=== PATIENT | male | born 1945 | race Caucasian/White ===

== ENCOUNTER → 2016-10-23 08:14 | Outpatient (CLI) | payer MEDICARE, BC ==
[2016-07-10 07:11] VITALS: BMI 30.1
[~2016-10-23 08:14] MED LIST: ANDROGEL; ASPIRIN325 MG PO; BABY ASPIRIN81 MG PO; BAYER CHEWABLE81 MG PO; CELEXA40 MG PO; FOLIC ACID1 MG PO; ISOSORBIDE MONO60 M1 PO; LISINOPRIL-HCTZ1 T13 PO; PLAVIX75 MG PO; PRILOSEC20 MG PO; PROTONIX40 MG PO; ZOCOR20 MG PO
== END | disposition home or self-care (01) ==
LOC: D.RAD 08:14
DX: K21.0 Gastro-esophageal reflux disease with esophagitis (principal)

== ENCOUNTER 2016-12-10 10:36 | Emergency (ER) | payer MEDICARE, BC ==
[2016-07-10 07:11] VITALS: BMI 30.1
[~2016-12-10 10:36] MED LIST changes: -BAYER CHEWABLE81 MG PO
[2016-12-10 11:18] LABS: BASOPHILS 0.3 % (0.0-2.0); EOSINOPHILS 4.3 % (0-7); HEMATOCRIT 46.3 % (42.0-54.0); HEMOGLOBIN 16.1 g/dL (13.5-17.5); IMMATURE GRANULOCYTES 0.3 % (0-5); LYMPHOCYTES 29.9 % (15-50); MCH 31.2 pg (26.0-34.0); MCHC 34.8 g/dL (31.0-37.0); MCV 89.7 fL (80.0-100.0); MEAN PLATELET VOLUME 9.1 fL (7.4-10.4); MONOCYTES 6.8 % (2-11); NEUTROPHILS 58.4 % (40-80); RBC 5.16 10x6/uL (4.20-6.10); RDW 12.9 % (11.5-14.5); WBC 6.7 10x3/uL (4.8-10.8)
[2016-12-10 11:22] LABS: PLATELET COUNT 319 10x3/uL (130-400)
[2016-12-10 11:47] LABS: ALBUMIN 4.1 g/dL (3.4-5.0); ALKALINE PHOSPHATASE 92 U/L (46-116); ALT (SGPT) 33 U/L (10-68); BILIRUBIN - TOTAL 0.75 mg/dL (0.2-1.3); CALC OSMOLALITY 275 mosm/kg (275-300); CALCIUM 9.1 mg/dL (8.5-10.1); CARBON DIOXIDE 27.7 mmol/L (21.0-32.0); CHLORIDE - SERUM 102 mmol/L (98-107); CREATININE - SERUM 1.4 mg/dL (0.6-1.3); GLUCOSE 99 mg/dL (74-106); PROTEIN - SERUM 7.6 g/dL (6.4-8.2); SODIUM 138 mmol/L (136-145); UREA NITROGEN 13 mg/dL (7-18); eGFR NON AFRICAN AMERICAN 53 mL/min (90-120)
[2016-12-10 11:54] LABS: CHOL - HDL RATIO 2.9 ratio (2.3-4.9); CHOLESTEROL, TOTAL 204 mg/dL (0-200); CKMB 0.6 U/L (0.0-3.6); CREATINE KINASE 34 UL (21-232); HDL CHOLESTEROL 71 mg/dL (32-96); LDL CHOLESTEROL 99 mg/dL (0-100); LDL-HDL RATIO 1.4 ratio (1.5-3.5); TRIGLYCERIDE 172 mg/dL (30-200)
[2016-12-10 12:01] LABS: TROPONIN-I < 0.017 ng/mL (0.000-0.060)
== END 2016-12-10 12:36 | disposition home or self-care (01) ==
LOC: D.ER 10:36
PROVIDERS: Emergency Medicine
DX: R07.89 Other chest pain (principal); K21.9 Gastro-esophageal reflux disease without esophagitis

== ENCOUNTER 2016-12-24 09:12 | Day surgery (SDC) | payer MEDICARE, BC ==
[~2016-12-24] VITALS: Ht 180.3 cm; Wt 93.2 kg
[2016-12-24] MEDS ORDERED: BAYER CHEWABLE81 MG PO (09:42)
[2016-12-24 09:49] VITALS: BP 147/71; Ht 180.3 cm; Wt 93.2 kg
[2016-12-24 10:16] LABS: BASOPHILS 0.2 % (0.0-2.0); EOSINOPHILS 6.6 % (0-7); HEMATOCRIT 43.5 % (42.0-54.0); HEMOGLOBIN 14.9 g/dL (13.5-17.5); IMMATURE GRANULOCYTES 0.2 % (0-5); MCH 31.1 pg (26.0-34.0); MCHC 34.3 g/dL (31.0-37.0); MCV 90.8 fL (80.0-100.0); MEAN PLATELET VOLUME 9.2 fL (7.4-10.4); MONOCYTES 9.1 % (2-11); NEUTROPHILS 55.9 % (40-80); RBC 4.79 10x6/uL (4.20-6.10); RDW 13.1 % (11.5-14.5); WBC 6.2 10x3/uL (4.8-10.8)
[2016-12-24 10:17] LABS: PLATELET COUNT 230 10x3/uL (130-400)
[2016-12-24 10:35] LABS: ANION GAP 18.1 mmol/L (8-16); CALCIUM 8.8 mg/dL (8.5-10.1); CARBON DIOXIDE 23.6 mmol/L (21.0-32.0); CREATININE - SERUM 1.1 mg/dL (0.6-1.3); POTASSIUM - SERUM 4.7 mmol/L (3.5-5.1)
--- NOTE | 2016-12-24 12:35 | NUR ---
CLIP FOR EGD USED SAME COLON CHARGE
--- NOTE | 2016-12-24 14:28 | NUR ---
1325 IV DC WITH CATHER TIP INTACT=
--- NOTE | 2016-12-28 13:02 | OP ---
PATIENT NAME: IGOR HERNANDEZ MEDICAL RECORD: [id number] :43 LOCATION:[facility] ADMISSION DATE: SURGEON: TISHA KUMAR DO DATE OF OPERATION: 12/24/2016 PROCEDURES: EGD with hot snare polypectomy and biopsies. SCOPE: Olympus video gastroscope. MEDICATIONS: Propofol 270 mg IV per anesthesia. INDICATION: Epigastric abdominal pain. FINDINGS: Informed consent was given. The patient was made comfortable with the above medication. After reaching an adequate level of sedation by slow IV push, the patient was placed on his left side. The endoscope was then advanced under direct visualization through the mouth down to the second portion of the duodenum. The upper, middle, and distal thirds of the esophagus appeared normal. At the GE junction, there was some mild LA class A reflux-induced esophagitis. Biopsies were taken of the site with cold forceps. The scope was advanced into the stomach and retroflexed to view the cardia where a small sliding hiatal hernia was present. There were some benign-appearing PPI-induced fundic gland polyps in the fundus and body of the stomach. A biopsy was taken of a single polyp and submitted for histology. There was some patchy granularity and erythema of the body and antrum of the stomach consistent with possible gastritis. Biopsies were taken to confirm this and to rule out H. pylori. The endoscope was advanced through the pylorus into the duodenum. The bulb appeared normal. In the second portion of the duodenum, there was a polypoid site, which had some adenomatous features. For a diagnosis, 2 biopsies were taken prior to a snare polypectomy. There was some bleeding from the biopsies and polypectomy. To stop the bleeding, a single endoclip was placed successfully. The endoscope was then withdrawn from the patient. The patient tolerated the procedure well and there were no complications. IMPRESSION: 1. Grade A reflux-induced esophagitis. 2. Small sliding hiatal hernia. 3. Erythema and granularity consistent with gastritis, biopsies taken. 4. Benign fundic gland PPI polyps. Biopsies taken. 5. Duodenal polyp, hot snare polypectomy performed and hemostasis with endoclipping. PLAN AND RECOMMENDATIONS: 1. Discharge home when recovery parameters are met. 2. Continue current medications. 3. Add Carafate tabs 1 g q.a.c. and h.s., dilute in water to coat the esophagus. 4. Gastroesophageal reflux diet and reflux precautions. 5. Follow up in the GI clinic as needed. TRANSINT:[id number] Voice Confirmation ID: [id number] DOCUMENT ID: [id number] OPERATIVE REPORT [id number] IGOR HERNANDEZ NATHAN A DO at 1302 CC: [id number] DICTATION DATE: 12/24/16 1245 [facility] NURSE: 12/24/16 1332 [facility] 12/24/[address] [address]
== END 2016-12-24 13:30 | disposition home or self-care (01) ==
LOC: D.OPS 09:12
PROVIDERS: Anesthesiology
DX: K21.0 Gastro-esophageal reflux disease with esophagitis (principal); K44.9 Diaphragmatic hernia without obstruction or gangrene; K31.7 Polyp of stomach and duodenum; D13.30 Benign neoplasm of unspecified part of small intestine; K22.70 Barrett's esophagus without dysplasia

== ENCOUNTER → 2017-02-16 06:59 | Outpatient (CLI) | payer MEDICARE, BC ==
[~2017-02-16] VITALS: Ht 180.3 cm; Wt 92.3 kg
--- NOTE | ~2017-02-16 | HEMODYNAMI ---
PATIENT:IGOR HERNANDEZ MEDICAL RECORD: [id number] : 43 LOCATION:[facility] ADMISSION DATE: 02/16/17 Generatedon:02/16/20179:44 Patient name: IGOR HERNANDEZ Patient #: [id number] : 1945 Date of study: 02/16/2017 Page: Of Hemodynamic Procedure Report Patient Data Patient Demographics Procedure consent was obtained First Name: IGOR Gender: Male Last Name: DAVID : 1945 [facility] Initial: OTILIA Age: 71 year(s) Patient #: [id number] Race: SSN: [id number] Additional ID: [id number] Contact details Address: [address] [facility] State: [place] City: [place] Zip code: [address] Past Medical History Allergies Allergen Reaction Date Comments Reported Other allergy 07/10/2016 Tetanus Admission Admission Data Admission Date: 02/16/2017 Admission Time: 6:59 Arrival Date: 02/16/2017 Arrival Time: 6:59 Admit Source: Other Insurance Payor: Medicare Height (in.): 71 BSA: 2.14 (m2) Height (cm.): 180.34 BMI: 28.87 (kg/m2) Weight (lbs.): 207 Weight (kg.): 93.89 Lab Results Lab Result Date: 02/16/2017 Lab Result Time: 0:00 Biochemistry Name Units Result Min Max BUN mg/dl 15 --(--*-)-- 7 18 Creatinine mg/dl 1.5 --(----)-* 0.6 1.3 CBC Name Units Result Min Max Hemoglobin g/dl 13.9 --(*---)-- 13.5 17.5 Procedure Procedure Types Cath Procedure Diagnostic Procedure LHC LHC w/Coronaries Miscellaneous Procedures Moderate Sedation up to 15 minutes Procedure Description Procedure Date Procedure Date: 02/16/2017 Procedure Start Time: 9:33 Procedure End Time: 9:40 Procedure Staff Name Function Regan Santos MD Performing Physician Brigette Acevedo RT Scrub Kristy Pena RN Nurse Keke Polk RT Monitor Indication Angina Procedure Data Cath Procedure Fluoroscopy Diagnostic fluoroscopy Total fluoroscopy Time: 0.7 time: 0.7 min min Diagnostic fluoroscopy Total fluoroscopy dose: 456 dose: 456 mGy mGy Contrast Material Contrast Material Type Amount (ml) Isovue 300 59 Entry Location Entry Primary Successful Side Size Upsize Upsize Entry Closure Succes sful Closure Location (Fr) 1 (Fr) 2 (Fr) Remarks Device Remarks Femoral Right 6 Fr Exoseal artery Short Estimated blood loss: 5 ml Diagnostic catheters Device Type Used For End Catheter Placement Cordis 5Fr Pigtail LV Angiography Catheter (MP) Cordis 5Fr JL 4.0 Left Coronary Catheter (MP) Angiography Cordis 5Fr 3DRC Catheter Right Coronary (MP) Angiography Procedure Complications No complications Procedure Medications Medication Administration Route Dosage Oxygen NC 2 l/min Lidocaine 2% added to field 20 Heparin Flush Bag added to field 2 bags (1000units/500ml NS) 0.9% NaCl I.V. 100 ml/hr Versed I.V. 1 mg Fentanyl I.V. 50 mcg Versed I.V. 1 mg Fentanyl I.V. 50 mcg Versed I.V. 1 mg Fentanyl I.V. 50 mcg Versed I.V. 0.5 mg Fentanyl I.V. 25 mcg Hemodynamics Rest BSA: 2.14 (m2) HGB: 13.9 (g/dl) O2 Consumption: Estimated: 232.78 (ml/min) O2 Co nsumption indexed: Estimated:108.78 (ml/min/m) Heart Rate: 52 (bpm) Pressure Samples Time Site Value (mmHg) Purpose Heart Use Rate(bpm) 9:34 LV 333/8,-13 Snapshot 59 Snapshots Pre Cath Intra NCS Post Cath Vital Signs Time Heart Resp SPO2 NIBP (mmHg) Rhythm Pain Sedation Rate (ipm) (%) Status Level (bpm) 9:21:38 50 17 100 164/82(154) NSR 0 (11) 10(A) , No pain 9:26:04 54 17 98 116/78(98) NSR 0 (11) 10(A) , No pain 9:30:09 58 16 98 121/76(100) NSR 0 (11) 10(A) , No pain 9:34:19 58 16 98 120/68(98) NSR 0 (11) 9(A) , No pain 9:38:29 64 12 98 124/70(99) NSR 0 (11) 9(A) , No pain 9:42:39 61 16 98 125/72(87) NSR 0 (11) 10(A) , No pain Medications Time Medication Route Dose Verified Delivered Reason Notes Effec tiveness by by 9:19:20 Oxygen NC 2 Regan Buffie used for l/min Danielle Pena RN procedure 9:19:27 Lidocaine 2% added 20ml Regan Regan for local to vial Danielle Santos MD anesthetic field 9:19:35 Heparin Flush added 2 Regan Regan used for Bag to bags Danielle Santos MD procedure (1000units/500ml field NS) 9:20:18 0.9% NaCl I.V. 100 Regan Buffie Per ml/hr Danielle Pena RN physician 9:27:53 Versed I.V. 1 mg Regan Shoemakerie for Danielle Pena RN sedation 9:27:58 Fentanyl I.V. 50 Regan Buffie for taisha Pena RN sedation 9:32:46 Versed I.V. 1 mg Regan Buffie for Danielle Pena RN sedation 9:32:50 Fentanyl I.V. 50 Regan Buffie for mcg Danielle Pena RN sedation 9:34:54 Versed I.V. 1 mg Regan Buffie for Danielle Pena RN sedation 9:34:58 Fentanyl I.V. 50 Regan Buffie for taisha Pena RN sedation 9:38:52 Versed I.V. 0.5 Regan Buffie for mg Danielle Pena RN sedation 9:38:55 Fentanyl I.V. 25 Regan Buffie for mcg Danielle Pena RN sedation Procedure Log Time Note 8:39:27 Informed consent obtained and on chart 8:41:02 Admit Source: Other 8:41:11 Arrival Date: 02/16/2017 6:59:00 AM 8:41:18 Insurance Payor : Medicare 8:41:25 Patient Height : 180.34 cm 8:41:30 Patient Weight : 93.89 kg 8:43:06 Lab Result : Creatinine 1.5 mg/dl 8:43:06 Lab Result : BUN 15 mg/dl 8:43:06 Lab Result : Hemoglobin 13.9 g/dl 8:46:20 Diagnostic Cath Status : Elective 8:46:43 Indication : Angina 8:47:09 Kristy Pena RN sent for patient. Start room use. 8:47:10 Time tracking: Regular hours 8:47:15 Plan of Care:Hemodynamics will remain stable., Cardiac rhythm will remain stable., Comfort level will be maintained., Respiratory function will remain adequate., Patient/ family verbilizes understanding of procedure., Procedure tolerated without complication., Recovers from procedure without complications.. 9:11:09 Patient received from Pre/Post Procedure Room to CCL 2 Alert and oriented. Tansferred to table in Supine position. 9:11:10 Warm blankets applied, and cy hugger turned on for patient comfort. 9:11:11 Correct patient and procedure confirmed by team. 9:11:11 ECG and BP/O2 sat monitors applied to patient. 9:19:20 Oxygen 2 l/min NC was administered by Kristy Pena RN; used for procedure; 9:19:27 Lidocaine 2% 20ml vial added to field was administered by Regan Santos MD; for local anesthetic; 9:19:35 Heparin Flush Bag (1000units/500ml NS) 2 bags added to field was administered by Regan Santos MD; used for procedure; 9:20:18 0.9% NaCl 100 ml/hr I.V. was administered by Kristy Pena RN; Per physician; 9:20:22 Vital chart was started 9:20:59 Baseline sample Acquired. 9:21:03 Rhythm: sinus rhythm 9:21:04 Full Disclosure recording started 9:21:24 H&P Date Dictated: 02/15/2017 Within 30 days and on chart., H&P Addendum completed by physician on day of procedure. (MUST COMPLETE FOR ALL OUTPATIENTS). 9:21:25 Pre-procedure instructions explained to patient. 9:21:26 Pre-op teaching completed and patient verbalized understanding. 9:21:27 Family in waiting room. 9:21:28 Patient NPO since Midnight. 9:21:54 Is the patient allergic to Iodine/contrast media? No. 9:21:55 Was the patient premedicated? No 9:21:59 Is patient on blood thinner?Yes 9:22:02 ACC The patient was administered the following blood thiners within the last 24 hours: ACCPlavix 9:22:08 Patient diabetic? No. 9:22:13 Previous problem with sedation/anesthesia? No ? 9:22:15 Snore? No 9:22:16 Sleep apnea? No 9:22:17 Deviated septum? No 9:22:17 Opens mouth fully? Yes 9:22:18 Sticks out tongue? Yes 9:22:20 Airway obstruction? No ? 9:22:23 Dentures? No ? 9:22:33 Pre procedure: right dorsailis pedis pulse 1+ Palpable, but thready & weak; easily obliterated 9:22:35 Patient pain scale 0/10 ?. 9:22:49 IV patent on arrival in left hand with 0.9% NaCl at [facility]. 9:22:52 Lab results completed and on chart. 9:22:55 Right groin area was prepped with chlora-prep and draped in sterile fashion 9:22:56 Alarms reviewed by R. N. 9:22:56 Sharps counted by scrub and verified by R.N. 9:27:38 Physician arrived 9:27:38 --------ALL STOP TIME OUT------ 9:27:38 Final Timeout: patient, procedure, and site verified with staff and physician. All members of the team are in agreement. 9:27:40 Right groin site verified by team. 9:27:43 Physical assessment completed. ASA score P 2 - A patient with mild systemic disease as per Regan Santos MD. 9:27:46 Sedation plan: IV Moderate Sedation Versed, Fentanyl 9:27:53 Versed 1 mg I.V. was administered by Kristy Pena RN; for sedation; 9:27:58 Fentanyl 50 mcg I.V. was administered by Kristy Pena RN; for sedation; 9:28:18 Use device set Femoral Dx 9:28:19 Acist Syringe opened to sterile field. 9:28:20 Bag Decanter opened to sterile field. 9:28:20 Medline Cath Pack opened to sterile field. 9:28:21 Terumo 5Fr Warren Sheath opened to sterile field. 9:28:21 St Jose Daniel 260cm J .035 wire opened to sterile field. 9:28:22 Acist Hand Control opened to sterile field. 9:28:23 Acist Manifold opened to sterile field. 9:28:23 Diagnostic Infinity 5Fr Multipack catheter opened to sterile field. 9:28:24 Tegaderm 4 x 4 opened to sterile field. 9:28:36 Zero performed for pressure channel P1 9:32:46 Versed 1 mg I.V. was administered by Kristy Pena RN; for sedation; 9:32:50 Fentanyl 50 mcg I.V. was administered by Kristy Pena RN; for sedation; 9:33:32 Procedure started. 9:33:36 Local anesthetic to right femoral artery with Lidocaine 2% by Regan Santos MD.INITIAL ACCESS ONLY 9:33:48 A 6 Fr Short sheath was inserted into the Right Femoral artery 9:34:16 A Cordis 5Fr Pigtail Catheter (MP) was advanced over the wire and used for LV Angiography. 9:34:54 Versed 1 mg I.V. was administered by Kristy Pena RN; for sedation; 9:34:57 LV hemodynamics recorded. 9:34:58 Fentanyl 50 mcg I.V. was administered by Kristy Pena RN; for sedation; 9:34:58 LV gram done using SKAGGS 9:35:00 Injector settings: Ml/sec: 5, Volume: 15, 9:35:05 EF : 55 % 9:35:11 Catheter removed. 9:35:16 A Cordis 5Fr JL 4.0 Catheter (MP) was advanced over the wire and used for Left Coronary Angiography. 9:35:30 LCA angiography performed. 9:35:33 Injector settings: Ml/sec: 3, Volume: 6, 9:36:48 Catheter removed. 9:36:55 A Cordis 5Fr 3DRC Catheter (MP) was advanced over the wire and used for Right Coronary Angiography. 9:37:49 RCA angiography performed. 9:37:52 Injector settings: Ml/sec: 3, Volume: 6, 9:37:54 Catheter removed. 9:38:12 Cordis 5Fr Exoseal opened to sterile field. 9:38:38 Sheath removed intact; hemostasis achieved with Exoseal to the Right Femoral artery. 9:38:40 Procedure ended.(Physican Out) 9:38:50 Fluoroscopy time 00.70 minutes. 9:38:52 Versed 0.5 mg I.V. was administered by Kristy Pena RN; for sedation; 9:38:53 Fluoroscopy dose: 456 mGy 9:38:53 Flurop Dose total: 456 9:38:55 Fentanyl 25 mcg I.V. was administered by Kristy Pena RN; for sedation; 9:38:57 Contrast amount:Isovue 300 59ml. 9:38:59 Sharps counted by scrub and verified by R.N. 9:39:02 Insertion/operative site no bleeding no hematoma. 9:39:05 Post-op/insertion site Right Femoral artery dressed using a 4 x 4 and Tegaderm. 9:39:08 Post right femoral artery:stable 9:39:10 Post Procedure Pulses reassessed and unchanged 9:39:12 Post procedure rhythm: unchanged. 9:39:15 Estimated blood loss: 5 ml 9:39:16 Post procedure instruction explained to patient.Patient verbalizes understanding. 9:39:17 Patient needs reinforcement of post procedure teaching. 9:39:30 Procedure type changed to Cath procedure, Diagnostic procedure, LHC, LHC w/Coronaries, Miscellaneous Procedures, Moderate Sedation up to 15 minutes 9:39:32 Procedure and supply charges have been captured, reviewed, submitted and are correct. 9:39:39 Procedure Complication : No complications 9:40:23 Vital chart was stopped 9:40:24 See physician's report for complete and final results. 9:40:27 Report given to Pre/Post Procedure Room. 9:40:29 Patient transfered to Pre/Post Procedure Room with Stretcher. 9:40:32 Procedure ended. 9:40:32 Full Disclosure recording stopped 9:41:10 End room use (Document Last) Device Usage Item Name Manufacture Quantity Catalog Hospital Part Current Minimal Lo t# / Number Charge Number Stock Stock Serial# Code Acist Acist 1 [id number] [id number] 906190 20 Syringe Medical Systems Inc Bag Microtek 1 2002S 672366 26837 406223 5 DecBuildersCloud [employer]. Medline Cardinal 1 [id number] 700971 64225 808520 5 Owlet Baby Care Terumo 5Fr Terumo 1 [id number] 241391 203101 994856 [address] [facility] Jose Daniel 1 324621 518013 189511 353770 30 260cm J .035 wire Acist Hand Acist 1 06867 310296 701880 512202 5 Control Medical Systems Inc Acist Acist 1 76551 686045 010039 258832 5 Manifold Medical Systems Inc Diagnostic Cardinal 1 [id number] 387808 39898 848399 30 Infinity Health 5Fr Multipack catheter Tegaderm 4 3M 1 1626W 395601 982007 011203 5 x 4 Cordis 5Fr Cardinal 1 722323 5 Pigtail Health Catheter (MP) Cordis 5Fr Cardinal 1 335895 5 JL 4.0 Health Catheter (MP) Cordis 5Fr Cardinal 1 799446 5 3DRC Health Catheter (MP) Cordis 5Fr Cardinal 1 EX500 090552 692304 808013 10 SensorLogic Signature Audit [place] Stage Time Signature Unsigned Intra-Procedure 02/16/2017 Keke Polk 9:44:17 AM RT(R) Signatures Monitor : Keke Polk RT Signature : Date : Time : [place] [id number] [place] [address]
[~2017-02-16 06:59] MED LIST changes: +BAYER CHEWABLE81 MG PO
[2017-02-16 07:57] VITALS: BP 149/72; Ht 180.3 cm; Wt 92.3 kg
[2017-02-16 08:13] LABS: BASOPHILS 0.3 % (0-2); EOSINOPHILS 7.2 % (0-7); HEMATOCRIT 39.4 % (42.0-54.0); HEMOGLOBIN 13.9 g/dL (13.5-17.5); IMMATURE GRANULOCYTES 0.2 % (0-5); LYMPHOCYTES 31.4 % (15-50); MCH 30.5 pg (26.0-34.0); MCHC 35.3 g/dL (31.0-37.0); MCV 86.4 fL (80.0-100.0); MONOCYTES 8.1 % (2-11); NEUTROPHILS 52.8 % (40-80); PLATELET COUNT 260 10x3/uL (130-400); RBC 4.56 10x6/uL (4.20-6.10); RDW 12.4 % (11.5-14.5)
[2017-02-16 08:34] LABS: CALCIUM 9.1 mg/dL (8.5-10.1); CARBON DIOXIDE 30.4 mmol/L (21.0-32.0); CREATININE - SERUM 1.5 mg/dL (0.6-1.3)
[2017-02-16 08:38] LABS: ANION GAP 11.6 mmol/L (8-16)
--- NOTE | 2017-02-16 10:15 | NUR ---
ROOM AIR, NO RESP DISTRESS NOTED. RIGHT GROIN 5F EXOSEAL CDI, NO BLEEDING OR HEMATOMA NOTED. VSS. NO C/O CHEST PAIN OR NAUSEA. INSTRUCTED TO KEEP HEAD FLAT ON PILLOW AND RIGHT LEG STRAIGHT.
--- NOTE | 2017-02-16 10:45 | NUR ---
WATER GIVEN, NO C/O NAUSEA OR CHEST PAIN. VSS. RIGHT GROIN 5F EXOSEAL CDI, NO BLEEDING OR HEMATOMA NOTED. AT BEDSIDE, CALL LIGHT WITHIN REACH.
--- NOTE | 2017-02-16 11:00 | NUR ---
RIGHT GROIN 5F EXOSEAL CDI, NO BLEEDING OR HEMATOMA NOTED. VSS. NO C/O CHEST PAIN OR NAUSEA. WILL CONTINUE TO MONITOR.
--- NOTE | 2017-02-16 11:30 | NUR ---
HOB ELEVATED 30 DEGREES. RIGHT GROIN 5F EXOSEAL CDI, NO BLEEDING OR HEMATOMA NOTED. SANDWICH TRAY GIVEN.
--- NOTE | 2017-02-16 11:47 | NUR ---
LEFT HAND PIV D/C'D WITH CATHETER INTACT, BAND AID TO SITE. UP TO BEDSIDE TO GET DRESSED.
--- NOTE | 2017-02-16 11:55 | NUR ---
UP TO RESTROOM TO VOID.
--- NOTE | 2017-02-16 12:00 | NUR ---
DISCHARGE INSTRUCTIONS GIVEN, VERBALIZED UNDERSTANDING.
--- NOTE | 2017-02-16 12:05 | NUR ---
TAKEN OUT VIA WHEELCHAIR BY CATH DATABASE ENGINEER. LEFT FACILITY WITH AND ALL PERSONAL BELONGINGS.
--- NOTE | 2017-02-18 08:49 | OP ---
PATIENT NAME: IGOR HERNANDEZ MEDICAL RECORD: [id number] :43 LOCATION:D.CAT ADMISSION DATE: SURGEON: SHAHNAZ MOLINA MD DATE OF OPERATION: 02/16/2017 PROCEDURES: 1. Left heart catheterization. 2. Selective coronary angiography. 3. Left ventriculogram. INDICATION: Chest pain compatible with angina and coronary artery disease, previous multivessel PTCA stent. PROCEDURE IN DETAIL: After informed consent was obtained and after detailed explanation of risks, benefits as well as alternative therapies, the patient elected to proceed with angiogram and heart catheterization. The right femoral area was prepped and draped in normal sterile fashion. The right femoral artery was cannulated via modified Seldinger technique with placement of 5-Luxembourgish sheath. All catheters exchanged through this sheath. FINDINGS: Left ventriculogram was performed in standard 30-degree SKAGGS view, reveals good cardiac wall motion throughout all segments. Overall ejection fraction estimated at 55%. SELECTIVE CORONARY ANGIOGRAPHY: 1. Left main showed no significant angiographic disease. 2. Left anterior descending has multiple previously placed stents. These are widely patent with no significant restenosis. No disease elsewise throughout the LAD or its branches. 3. Left circumflex has previously placed stents, these are widely patent with no significant restenosis. No disease elsewise throughout the left circumflex or its branches. 4. Right coronary has previously placed stents, these are widely patent with no significant restenosis. No disease elsewise throughout the right coronary or its branches. OVERALL IMPRESSION: No significant restenosis of any of the previously placed stents. No disease elsewise, preserved left ventricular function. Continue medical management of the coronary artery disease and cardiac risk factors. TRANSINT:[id number] Voice Confirmation ID: [id number] DOCUMENT ID: [id number] SHAHNAZ MOLINA MD at 0849 CC: [id number] DICTATION DATE: 02/16/17 0942 CARBON DIOXIDE OPERATOR: 02/16/17 1844 DEP CLI 02/16/17 [id number] [place] [address]
== END | disposition home or self-care (01) ==
LOC: D.CATH 06:59
PROVIDERS: Internal Medicine Interventional Cardiology
DX: I25.119 Atherosclerotic heart disease of native coronary artery with unspecified angina pectoris (principal); Z95.5 Presence of coronary angioplasty implant and graft

== ENCOUNTER 2017-06-02 11:29 | Day surgery (SDC) | payer MEDICARE, BC ==
[~2017-06-02] VITALS: Ht 180.3 cm; Wt 93.2 kg
--- NOTE | ~2017-06-02 | OP ---
PATIENT NAME: IGOR HERNANDEZ MEDICAL RECORD: [id number] :43 LOCATION:D.OPS ADMISSION DATE: SURGEON: TISHA KUMAR DO DATE OF OPERATION: 06/02/2017 PROCEDURE: Colonoscopy with polypectomy. INDICATION FOR PROCEDURE: Screening for colorectal cancer. SCOPE: Olympus video pediatric colonoscope. MEDICATIONS: Propofol 350 mg IV per anesthesia. WITHDRAWAL TIME: 21 minutes. ESTIMATED BLOOD LOSS: Minimal. COMPLICATIONS: None. FINDINGS: Informed consent was given. The patient was made comfortable with the above medication. After reaching an adequate level of sedation by slow IV push, the patient was placed on his left side. A digital rectal examination was performed and was normal. The endoscope was then advanced under direct visualization through the rectum to the cecum with visualization of the appendiceal orifice and the ileocecal valve. The scope was slowly withdrawn and mucosa was carefully examined. The prep quality was fair. A significant amount of time was spent washing the colon and suctioning the fluid for better visualization. There was a single polyp visualized on today's examination. It was located in the cecum and measured approximately 2 mm x 1 cm in size. It was removed in piecemeal fashion with hot forceps and completely retrieved and fulgurated. There was evidence of xyeh-rv-frhenowx diverticulosis of the entire colon. Retroflexion was performed in the rectum with visualization of internal hemorrhoids and a hypertrophied anal papilla/skin tag. Cold forceps biopsies were taken of the tip of this tag to submit for histopathology. The scope was then withdrawn from the patient. The patient tolerated the procedure well and there were no complications. IMPRESSIONS: 1. Cecal polyp, removed with hot forceps. 2. Anal papilla/hemorrhoidal tag, biopsies pending. 3. Didl-xv-upsloyip diverticulosis of the entire colon. 4. Internal hemorrhoids. PLAN AND RECOMMENDATIONS: 1. Discharge home when recovery parameters are met. 2. High-fiber diet. 3. Continue current medications. 4. Followup biopsy specimen results. 5. Recall colonoscopy in 5 years for continued surveillance based on personal history of polyps. TRANSINT:[id number] Voice Confirmation ID: [id number] DOCUMENT ID: [id number] OPERATIVE REPORT [id number] IGOR HERNANDEZ TISHA KUMAR DO CC: [id number] DICTATION DATE: 06/02/17 1538 [employer] WE[employer] DEVELOPER: 06/02/17 1854 [facility] 06/02/17 [facility] [address] [id number]
[2017-06-02 12:21] LABS: BASOPHILS 0.2 % (0-2); EOSINOPHILS 3.9 % (0-7); HEMATOCRIT 43.5 % (42.0-54.0); HEMOGLOBIN 15.3 g/dL (13.5-17.5); IMMATURE GRANULOCYTES 0.3 % (0-5); LYMPHOCYTES 24.8 % (15-50); MCH 31.4 pg (26.0-34.0); MCHC 35.2 g/dL (31.0-37.0); MCV 89.3 fL (80.0-100.0); MEAN PLATELET VOLUME 9.1 fL (7.4-10.4); MONOCYTES 8.3 % (2-11); NEUTROPHILS 62.5 % (40-80); PLATELET COUNT 266 10x3/uL (130-400); RBC 4.87 10x6/uL (4.20-6.10); RDW 12.6 % (11.5-14.5); WBC 6.5 10x3/uL (4.8-10.8)
[2017-06-02 12:30] LABS: ANION GAP 13.2 mmol/L (8-16); CALCIUM 9.2 mg/dL (8.5-10.1); CARBON DIOXIDE 27.6 mmol/L (21.0-32.0); CREATININE - SERUM 1.5 mg/dL (0.6-1.3); POTASSIUM - SERUM 3.8 mmol/L (3.5-5.1)
[2017-06-02 12:57] VITALS: BP 127/73; Ht 180.3 cm; Wt 93.2 kg
--- NOTE | 2017-06-02 16:45 | NUR ---
1620--IV DC'D, PT UP TO DRESS. ALICIA GOLD 1640--DISCHARGE INSTRUCTIONS GIVEN, PT VERBALIZES UNDERSTANDING. PT OFF UNIT VIA WC. ALICIA GOLD
== END 2017-06-02 16:40 | disposition home or self-care (01) ==
LOC: D.OPS 11:29
PROVIDERS: Anesthesiology
DX: Z12.11 Encounter for screening for malignant neoplasm of colon (principal); I25.10 Atherosclerotic heart disease of native coronary artery without angina pectoris; I10 Essential (primary) hypertension; K21.9 Gastro-esophageal reflux disease without esophagitis; Z95.5 Presence of coronary angioplasty implant and graft; Z01.812 Encounter for preprocedural laboratory examination; K62.89 Other specified diseases of anus and rectum; K57.30 Diverticulosis of large intestine without perforation or abscess without bleeding; K64.8 Other hemorrhoids; K63.5 Polyp of colon

== ENCOUNTER 2017-06-04 04:04 | Inpatient (IN) | payer MEDICARE, BC ==
[2017-06-04] VITALS (20 sets, daily range): BP systolic 90–167; BP diastolic 52–87; BMI 27.9
[2017-06-04 04:32] LABS: BASOPHILS 0.1 % (0-2); EOSINOPHILS 4.1 % (0-7); IMMATURE GRANULOCYTES 0.5 % (0-5); LYMPHOCYTES 24.4 % (15-50); MCH 31.6 pg (26.0-34.0); MCHC 35.3 g/dL (31.0-37.0); MCV 89.5 fL (80.0-100.0); MEAN PLATELET VOLUME 8.8 fL (7.4-10.4); MONOCYTES 7.7 % (2-11); NEUTROPHILS 63.2 % (40-80); PLATELET COUNT 221 10x3/uL (130-400); RDW 12.6 % (11.5-14.5); WBC 7.6 10x3/uL (4.8-10.8)
[2017-06-04 04:48] LABS: APTT 24.5 SECONDS (22.8-39.4); INR 1.14 (0.85-1.17); PROTIME 14.5 SECONDS (11.6-15.0)
[2017-06-04 04:53] LABS: ALBUMIN 3.2 g/dL (3.4-5.0); ANION GAP 11.1 mmol/L (8-16); BILIRUBIN - TOTAL 0.6 mg/dL (0.2-1.3); CALCIUM 8.8 mg/dL (8.5-10.1); CARBON DIOXIDE 26.4 mmol/L (21.0-32.0); CREATININE - SERUM 1.5 mg/dL (0.6-1.3); POTASSIUM - SERUM 3.5 mmol/L (3.5-5.1); PROTEIN - SERUM 5.8 g/dL (6.4-8.2)
[2017-06-04 05:42] LABS: APPEARANCE CLEAR (CLEAR); BILIRUBIN NEGATIVE (NEGATIVE); COLOR YELLOW (YELLOW); GLUCOSE NEGATIVE (NEGATIVE); KETONE NEGATIVE (NEGATIVE); NITRITE NEGATIVE (NEGATIVE); PROTEIN NEGATIVE (NEGATIVE); UROBILINOGEN NORMAL (NORMAL)
--- NOTE | 2017-06-04 08:20 | NUR ---
PATIENT IN BED WITH IV INTACT. NO COMPLAINTS AT THIS TIME. IV INTACT. ASSESSMENT COMPLETE, VS STABLE. WILL CONTINUE TO MONITOR. CALL LIGHT WITHIN REACH.
--- NOTE | 2017-06-04 10:45 | NUR ---
PATIENT STATED HAD A BM THAT WAS BLOODY. H&H BEING MONITORED. EXPLAINED TO PATIENT IF HAPPENS AGAIN TO LET ME KNOW. VERBALIZED UNDERSTANDING. CALL LIGHT WITHIN REACH.
[2017-06-04 12:57] LABS: BASOPHILS 0.1 % (0-2); EOSINOPHILS 1.9 % (0-7); HEMATOCRIT 30.7 % (42.0-54.0); HEMOGLOBIN 10.8 g/dL (13.5-17.5); IMMATURE GRANULOCYTES 0.4 % (0-5); LYMPHOCYTES 20.2 % (15-50); MCH 31.5 pg (26.0-34.0); MCHC 35.2 g/dL (31.0-37.0); MCV 89.5 fL (80.0-100.0); MONOCYTES 6.8 % (2-11); NEUTROPHILS 70.6 % (40-80); PLATELET COUNT 243 10x3/uL (130-400); RBC 3.43 10x6/uL (4.20-6.10); RDW 12.7 % (11.5-14.5); WBC 8.1 10x3/uL (4.8-10.8)
--- NOTE | 2017-06-04 15:00 | NUR ---
PATIENT GETTING GI SCAN DONE.
--- NOTE | 2017-06-04 17:00 | NUR ---
PATIENT TO GET COLONOSCOPY.
--- NOTE | 2017-06-04 18:33 | NUR ---
PT CAME FROM RECOVERY ROOM VIA BED. AWAKE AND ALERT. STILL A LITTLE SEDATED. ON ROOM AIR O2 SAT OF 98% RR 14. BP 122/52 MAP 81, GA 58. NEEDS 2 UNITS OF BLOOD. RATES PAIN 0/10 AT THIS TIME. WILL CONTINUE TO MONITOR.
--- NOTE | 2017-06-04 19:09 | NUR ---
FIRST UNIT OF PRBCs INFUSING TO LEFT AC 20 GAUGE PERIPHERAL IV. PT SLEEPING AT THIS TIME. BP IS 114/56 (77) HR 57. O2 SAT 97% ROOM AIR, RR 19.
--- NOTE | 2017-06-04 19:25 | NUR ---
BEDSIDE SHIFT REPORT TAKEN FROM OSMEL GOLD. PRBC'S RECENTLY STARTED TO LEFT AC 20G PIV. TOLERATING WELL. LETHARGIC, BUT AWAKENS AND ANSWERS QUESTIONS APPROPRIATLY. DENIES ABDOMINAL PAIN. ON ROOM AIR. SINUS RHYTHM TO SINUS BRADYCARDIA ON THE MONITOR IN THE 55-65 RANGE. WILL MONITOR.
--- NOTE | 2017-06-04 20:00 | NUR ---
OBTAINED FROM WAITING ROOM. PATIENT WAS NOT SURE WHERE HE WAS AND THOUGHT SHE MAY HELP.
--- NOTE | 2017-06-04 21:37 | NUR ---
2100 MEDS GIVEN. SBP 120-130'S AT PRESENT. WILL MONITOR.
--- NOTE | 2017-06-04 21:53 | NUR ---
2ND UNIT OF PRBC'S STARTED. NO REACTION FROM UNIT 1. INFORMED OF POSSIBLE REACTIONS AND SYMPTOMS. VERBALIZED UNDERSTANDING.
--- NOTE | 2017-06-04 22:15 | NUR ---
NO REACTION NOTED FROM 2ND UNIT THUS FAR. WILL MONITOR.
[2017-06-05] VITALS (20 sets, daily range): BP systolic 94–150; BP diastolic 45–88
--- NOTE | 2017-06-05 00:18 | NUR ---
2ND UNIT OF PRBC'S COMPLETED. LEFT AC PIV TAPE COMING OFF. REDRESSED IV AND SITE CARE COMPLETED. FLUSHED WITH NS AND STARTED ORDERED D5NS @ 125ML/HR. CONVERSATION ABOUT GRANDKIDS AND JOKING AND LAUGHING. NO ACUTE DISTRESS NOTED. WILL MONITOR.
[2017-06-05 01:06] LABS: BASOPHILS 0.1 % (0-2); EOSINOPHILS 4.4 % (0-7); HEMATOCRIT 30.7 % (42.0-54.0); HEMOGLOBIN 10.7 g/dL (13.5-17.5); IMMATURE GRANULOCYTES 0.1 % (0-5); LYMPHOCYTES 31.2 % (15-50); MCHC 34.9 g/dL (31.0-37.0); MEAN PLATELET VOLUME 8.5 fL (7.4-10.4); MONOCYTES 7.4 % (2-11); NEUTROPHILS 56.8 % (40-80); RBC 3.45 10x6/uL (4.20-6.10); RDW 12.8 % (11.5-14.5); WBC 7.5 10x3/uL (4.8-10.8)
[2017-06-05 01:11] LABS: PLATELET COUNT 171 10x3/uL (130-400)
--- NOTE | 2017-06-05 02:15 | NUR ---
EYES CLOSED. NO ACUTE DISTRESS NOTED. WILL MONITOR.
--- NOTE | 2017-06-05 04:00 | NUR ---
REASSESSMENT COMPLETED. SEE ASSESSMENT FLOWSHEET. NO NEW ACUTE CHANGES NOTED. SPOT CHECKED O2 SAT-98% ON ROOM AIR. D5NS INFUSING @ 125ML/HR TO LEFT AC 20G PIV. WILL MONITOR.
--- NOTE | 2017-06-05 05:45 | NUR ---
ABDULAZIZ GALLARDO AT BEDSIDE TO DRAW AM LABS. EMPTIED URINAL. CLEAR, YELLOW URINE NOTED. APPLE JUICE GIVEN PER REQUEST. WILL MONITOR.
[2017-06-05 05:59] LABS: BASOPHILS 0.2 % (0-2); EOSINOPHILS 4.8 % (0-7); IMMATURE GRANULOCYTES 0.3 % (0-5); LYMPHOCYTES 32.8 % (15-50); MCH 31.5 pg (26.0-34.0); MCHC 35.5 g/dL (31.0-37.0); MCV 88.8 fL (80.0-100.0); MONOCYTES 7.2 % (2-11); NEUTROPHILS 54.7 % (40-80); PLATELET COUNT 189 10x3/uL (130-400); RBC 3.49 10x6/uL (4.20-6.10); RDW 13.1 % (11.5-14.5)
[2017-06-05 06:05] LABS: ANION GAP 9.6 mmol/L (8-16); CALCIUM 8.1 mg/dL (8.5-10.1); CARBON DIOXIDE 28.3 mmol/L (21.0-32.0); CREATININE - SERUM 1.2 mg/dL (0.6-1.3); POTASSIUM - SERUM 3.9 mmol/L (3.5-5.1)
--- NOTE | 2017-06-05 06:25 | NUR ---
AT BEDSIDE. UPDATE GIVEN. QUESTIONS ANSWERED. DENIES ANY MORE TO DRINK AT THIS TIME. WILL MONITOR.
--- NOTE | 2017-06-05 08:00 | NUR ---
ASSESSMENT PER FLOW SHEET.PT WITHOUT DISTRESS.PRUNE JUICE PROVIDED FOR CONSTIPATION.DENIES NEDS AT PRESENT.CALL LIGHT IN REACH
--- NOTE | 2017-06-05 09:43 | NUR ---
AWAKE AND ALERT SKIN WARM AND DRY. DENIES ANY PAIN ABD SOFT WITH BOWEL SOUNDS PRESENT. NO BM SINCE COLONSCOPY. VOIDING IN URINAL CLEAR YELLOW URINE. IV LEFT AC WITHOUT REDNESS OR SWELLING INFUSING WITH D5NS AT 125 ML HOUR. CLEAR LIQUID DIET SERVED FOR BREAKFAST DRANK JUICE AND ATE JELLO. MONITOR SR. VISITORS HERE QUESTIONS ANSWERED
--- NOTE | 2017-06-05 10:13 | NUR ---
DR. NAVA HERE ORDERS RECEIVED TO TRANSFER TO FLOOR, DAILY H/H AND CHANGE DIET TO SOFT DIET. PATIENT INSTRUCTED TO LET NURSE IF HE HAS ANY BLOODY STOOL AND PATIENT VERBALIZED UNDERSTANDING. REPORT CALLED TO JOSEPH. TO TRANSFER TO ROOM 9521
--- NOTE | 2017-06-05 11:45 | NUR ---
TO ROOM 2229 FROM ICU.PT WITHOUT DISTRESS.ORIENTATION TO ROOM.CALL LIGHT IN REACH,PT WITHOUT SIGNS OF BLEEDING.MONITOR FOR CHANGE.
--- NOTE | 2017-06-05 14:00 | NUR ---
PT HAS LARGE AMOUNT OF REDDISH BROWN STOOLS.HAT PACED IN TOILET TO MONITOR FOR AMOUNT AND COLOR.
[2017-06-05 16:37] LABS: HEMATOCRIT 33.2 % (42.0-54.0); HEMOGLOBIN 11.5 g/dL (13.5-17.5)
--- NOTE | 2017-06-05 18:42 | NUR ---
HAS REMANED WITHOUT DISTRES.HAS REPORTED 3 LOOSE STOOLS TODAY.REMAINS WITHOUT CHNAGE FROM INITITIAL SHIFT ASSESSMENT.CONT PLAN OF CARE
--- NOTE | 2017-06-05 18:44 | NUR ---
REMAINS WITHOUT BLEEDING,NO MORE STOOLS.CONT PLAN OF CARE
--- NOTE | 2017-06-05 22:55 | NUR ---
PLATELET INFUSION STARTED AT 2234. VITALS SIGNS STABLE. INFUSION COMPLETED AT 2254. RESUMED IV FLUIDS.
[2017-06-06 00:04] VITALS: BP 122/59
[2017-06-06 04:00] VITALS: BP 127/61
[2017-06-06 06:10] LABS: BASOPHILS 0.3 % (0-2); EOSINOPHILS 6.5 % (0-7); HEMATOCRIT 30.9 % (42.0-54.0); HEMOGLOBIN 10.7 g/dL (13.5-17.5); IMMATURE GRANULOCYTES 0.3 % (0-5); LYMPHOCYTES 31.3 % (15-50); MCH 30.9 pg (26.0-34.0); MCHC 34.6 g/dL (31.0-37.0); MCV 89.3 fL (80.0-100.0); MEAN PLATELET VOLUME 9.6 fL (7.4-10.4); MONOCYTES 8.4 % (2-11); NEUTROPHILS 53.2 % (40-80); PLATELET COUNT 250 10x3/uL (130-400); RBC 3.46 10x6/uL (4.20-6.10); WBC 5.8 10x3/uL (4.8-10.8)
[2017-06-06 06:17] LABS: ANION GAP 9.5 mmol/L (8-16); CALCIUM 8.3 mg/dL (8.5-10.1); CARBON DIOXIDE 29.1 mmol/L (21.0-32.0); CREATININE - SERUM 1.3 mg/dL (0.6-1.3); POTASSIUM - SERUM 3.6 mmol/L (3.5-5.1)
[2017-06-06 09:20] VITALS: BP 152/65
--- NOTE | 2017-06-06 10:18 | NUR ---
ASSESSMENT PER FLOW SHEET.PT WITHOUT DISTRESS.PT REPORTS NO STOOLS. MONITOR FOR NEEDS
[2017-06-06 12:31] VITALS: BP 131/73
[2017-06-06 16:05] VITALS: BP 171/72
--- NOTE | 2017-06-06 17:01 | NUR ---
REMAINS WITHOUT DISTRESS.FAMILY AT BEDSIDE.NO SIGNS OF BLEEDING. HAS HAD 1 SMALL DARK COLORED STOOL TODAY.
--- NOTE | 2017-06-06 18:57 | NUR ---
REMAINS WITHOUT CHNAGE FROM INITIAL AHSIFT ASSESSMENT.CONT PLAN OF CARE
[2017-06-06 21:27] VITALS: BP 158/73
[2017-06-07 04:00] VITALS: BP 125/71
[2017-06-07 05:43] LABS: BASOPHILS 0.1 % (0-2); EOSINOPHILS 5.8 % (0-7); HEMATOCRIT 30.5 % (42.0-54.0); HEMOGLOBIN 10.6 g/dL (13.5-17.5); IMMATURE GRANULOCYTES 0.1 % (0-5); LYMPHOCYTES 26.6 % (15-50); MCH 30.9 pg (26.0-34.0); MCHC 34.8 g/dL (31.0-37.0); MCV 88.9 fL (80.0-100.0); MEAN PLATELET VOLUME 9.5 fL (7.4-10.4); MONOCYTES 8.4 % (2-11); PLATELET COUNT 248 10x3/uL (130-400); RBC 3.43 10x6/uL (4.20-6.10); WBC 6.7 10x3/uL (4.8-10.8)
--- NOTE | 2017-06-07 07:25 | NUR ---
PT AOX4 RESP EVEN AND NONLABORED PT DENIES NEEDS AT THIS TIME IV TO LEFT AC PATENT AND INTACT AT THIS TIME SRX2 BED AT LOWEST SETTING CALL LIGHT WITHIN REACH WILL CONTINUE TO MONITOR
[2017-06-07 08:35] VITALS: BP 128/68
[2017-06-07 09:23] LABS: ALBUMIN 2.8 g/dL (3.4-5.0); BILIRUBIN - TOTAL 0.61 mg/dL (0.2-1.3); CALCIUM 8.7 mg/dL (8.5-10.1); CARBON DIOXIDE 28.6 mmol/L (21.0-32.0); CREATININE - SERUM 1.3 mg/dL (0.6-1.3); POTASSIUM - SERUM 3.6 mmol/L (3.5-5.1); PROTEIN - SERUM 5.3 g/dL (6.4-8.2)
[2017-06-07 12:29] VITALS: BP 122/70
--- NOTE | 2017-06-07 13:14 | NUR ---
Patient Name: IGOR HERNANDEZ Admission Status: ER Accout number: [id number] Admission Date: 06-04-2017 : 1945 Admission Diagnosis:POSTPROC HEMOR OF A DGSTV SYS ORG FOL A DGSTV SYS PROCE Attending: BRANDY, Current LOS: 3 Anticipated DC Date: 06-08-2017 Planned Disposition: Home Primary Insurance: MEDICARE A & B Discharge Planning Comments: CM MET WITH PATIENT REGARDING D/C NEEDS AND PLANS. PATIENT STATED HIS (NICOL) WILL DRIVE HIM HOME AT DISCHARGE. PATIENT HAS NO STEPS OR STAIRS AT HIS HOME. PATIENT IS INDEPENDENT WITH HIS CARE AND PHARMACY IS [facility] [place]. PATIENT HAS NO DME EQUIPMENT AT HOME. PATIENTS PCP IS DR. WILKINSON. PATIENT REFUSED HOME HEALTH AT THIS TIME. CM WILL CONTINUE TO FOLLOW PATIENT WITH D/C NEEDS AND PLANS. PCP DR. [facility]- [phone] NICOL () [phone] Continuous Miner: Noemy Almanza Is the patient Alert and Oriented? Yes 0 * How many steps to enter\exit or inside your home? 0 0 * PCP DR. WILKINSON 0 * [facility] * Preadmission Environment Home with Family 0 * ADLs Independent 0 * Equipment None 0 * List name and contact numbers for known caregivers / representatives who currently or will assist patient after discharge: NICOL HERNANDEZ (SPOUSE) [phone] 0 * Community resources currently utilized None 0 * Additional services required to return to the preadmission environment? Yes 0 * Can the patient safely return to the preadmission environment? Yes 0 * Has this patient been hospitalized within the prior 30 days at any hospital? No 0 Grand Total: 0
[2017-06-07] MEDS ORDERED: FLAGYL500 MG PO (13:48)
[2017-06-07] MEDS ORDERED: FLORAJEN3 CAPS460 MG PO (13:48)
[2017-06-07] MEDS ORDERED: PEPCID20 MG PO (13:48)
--- NOTE | 2017-06-07 14:04 | NUR ---
CM REASSESSMENT NOTE: PATIENT IS DISCHARGING HOME WITH NO NEEDS AND REFUSED HOME HEALTH. IS DRIVING PATIENT HOME.
--- NOTE | 2017-06-07 16:19 | NUR ---
PT GIVEN FLU SHOT IN RIGHT DELTOID WITHOUT DIFFICULTY AT THIS TIME IV DISCONTINUED WITH CATHETER INTACT AT THIS TIME
--- NOTE | 2017-06-07 16:51 | NUR ---
PT TAKEN DOWN AND LEFT VIA PRIVATE VEHICLE AT THIS TIME
== END 2017-06-07 16:51 | disposition home or self-care (01) | DRG 920 ==
LOC: D.ER 04:04 → D.MS 07:01 → D.ICU 18:28 → D.MS 06-05 10:58
PROVIDERS: Emergency Medicine; Family Medicine; Internal Medicine Gastroenterology; ADMIT Family Medicine
PROC: 0W3P8ZZ Control Bleeding in Gastrointestinal Tract, Via Natural or Artificial Opening Endoscopic (ICD-10-PCS; principal; 2017-06-04 17:00)
DX: K91.840 Postprocedural hemorrhage of a digestive system organ or structure following a digestive system procedure (principal); D62 Acute posthemorrhagic anemia; Y83.8 Other surgical procedures as the cause of abnormal reaction of the patient, or of later complication, without mention of misadventure at the time of the procedure; I25.10 Atherosclerotic heart disease of native coronary artery without angina pectoris; I10 Essential (primary) hypertension; E78.5 Hyperlipidemia, unspecified; N28.9 Disorder of kidney and ureter, unspecified; Z95.5 Presence of coronary angioplasty implant and graft; F17.200 Nicotine dependence, unspecified, uncomplicated

== ENCOUNTER 2017-08-04 09:50 | Day surgery (SDC) | payer MEDICARE, BC ==
[~2017-08-04] VITALS: Ht 180.3 cm; Wt 93.2 kg
[~2017-08-04 09:50] MED LIST changes: +FLAGYL500 MG PO; +FLORAJEN3 CAPS460 MG PO; +PEPCID20 MG PO
[2017-08-04 10:21] LABS: BASOPHILS 0.1 % (0-2); EOSINOPHILS 1.5 % (0-7); HEMATOCRIT 41.8 % (42.0-54.0); HEMOGLOBIN 14.3 g/dL (13.5-17.5); IMMATURE GRANULOCYTES 0.5 % (0-5); LYMPHOCYTES 24.1 % (15-50); MCH 30.2 pg (26.0-34.0); MCHC 34.2 g/dL (31.0-37.0); MCV 88.2 fL (80.0-100.0); MEAN PLATELET VOLUME 8.8 fL (7.4-10.4); MONOCYTES 7.9 % (2-11); NEUTROPHILS 65.9 % (40-80); RBC 4.74 10x6/uL (4.20-6.10); WBC 7.9 10x3/uL (4.8-10.8)
[2017-08-04 10:34] LABS: PLATELET COUNT 319 10x3/uL (130-400)
[2017-08-04 10:43] LABS: ANION GAP 11.1 mmol/L (8-16); CALCIUM 8.8 mg/dL (8.5-10.1); CARBON DIOXIDE 28.6 mmol/L (21.0-32.0); CREATININE - SERUM 1.5 mg/dL (0.6-1.3); POTASSIUM - SERUM 3.7 mmol/L (3.5-5.1)
[2017-08-04] MEDS ORDERED: PLAVIX75 MG PO (11:22)
[2017-08-04 11:26] VITALS: BP 129/73; Ht 180.3 cm; Wt 93.2 kg
--- NOTE | 2017-08-04 17:54 | OP ---
PATIENT NAME: IGOR HERNANDEZ MEDICAL RECORD: [id number] :[birth year] LOCATION:[facility] ADMISSION DATE: SURGEON: TISHA KUMAR DO DATE OF OPERATION: 08/04/2017 PROCEDURE: EGD with biopsies. INDICATIONS FOR PROCEDURE: History of a duodenal adenomatous polyp and Olson esophagus. SCOPE: Codexis video gastroscope. MEDICATIONS: Propofol IV per anesthesia. ESTIMATED BLOOD LOSS: Minimal. COMPLICATIONS: None. FINDINGS: Informed consent was given. The patient was made comfortable with the above medication. After reaching an adequate level of sedation by slow IV push, the patient was placed on his left side. The endoscope was then advanced under direct visualization through the mouth to the third portion of the duodenum. The entire esophagus appeared normal. At the GE junction, there was evidence of mild reflux and Olson esophagus. The length of the Olson's is right at 2 cm. There were no obvious abnormalities within the mucosal surface. Four quadrant biopsies were taken to submit for histopathology. The endoscope was advanced beyond the GE junction into the stomach and retroflexed to view the cardia, where a small sliding hiatal hernia was present. In the fundus and body of the stomach, there were multiple benign-appearing fundic gland type polyps. In the antrum and prepyloric region, there was some erythema and granularity consistent with gastritis. The endoscope was advanced beyond the pylorus into the duodenum where the bulb, first portion, and second portion of the duodenum appeared normal. The previously identified adenomatous polyp had no residual tissue and there were no other abnormalities to biopsy at this site. The endoscope was then withdrawn from the patient. The patient tolerated the procedure well and there were no complications. IMPRESSION: 1. Olson esophagus. 2. Small sliding hiatal hernia. 3. Multiple benign appearing fundic gland type polyps, likely related to chronic PPI use. 4. Erythema and granularity of the antrum consistent with gastritis. 5. Previously identified adenomatous polyp, status post polypectomy, has no residual tissue. PLAN AND RECOMMENDATIONS: 1. Discharge home when recovery parameters are met. 2. Follow up biopsy specimen results. 3. Follow up in GI clinic as needed. 4. Recall EGD in 2 years for Olson's surveillance and to take another look at the site of the previously identified adenomatous polyp in the duodenum. TRANSINT:[id number] Voice Confirmation ID: [id number] DOCUMENT ID: [id number] OPERATIVE REPORT [id number] IGOR HERNANDEZ,TISHA Brizuela DO at 1754 CC: [id number] DICTATION DATE: 08/04/17 1249 METAL WINDOW SCREEN ASSEMBLER: 08/04/17 1425 REG [facility] [address] [id number]
--- NOTE | 2017-08-04 17:58 | NUR ---
1315--IV DC'D. ALICIA GOLD 1330--DISCHARGE INSTRUCTIONS GIVEN, PT VERBALIZES UNDERSTANDING. PT OFF UNIT VIA WC. ALICIA GOLD
== END 2017-08-04 13:30 | disposition home or self-care (01) ==
LOC: D.OPS 09:50
PROVIDERS: Anesthesiology
DX: K22.70 Barrett's esophagus without dysplasia (principal); K44.9 Diaphragmatic hernia without obstruction or gangrene; K31.7 Polyp of stomach and duodenum; K29.70 Gastritis, unspecified, without bleeding; Z01.812 Encounter for preprocedural laboratory examination

== ENCOUNTER 2017-08-20 09:14 | Outpatient (CLI) | payer MEDICARE, BC ==
[~2017-08-20] VITALS: Ht 180.3 cm; Wt 90.9 kg
--- NOTE | ~2017-08-20 | HEMODYNAMI ---
PATIENT:IGOR HERNANDEZ MEDICAL RECORD: [id number] : [birth year] LOCATION:[facility] ADMISSION DATE: 08/20/17 Generatedon:08/20/201713:31 Patient name: IGOR HERNANDEZ Patient #: [id number] : 1945 Date of study: 08/20/2017 Page: Of Hemodynamic Procedure Report Patient Data Patient Demographics Procedure consent was obtained First Name: IGOR Gender: Male Last Name: DAVID : 1945 [facility] Initial: OTILIA Age: 71 year(s) Patient #: [id number] Race: SSN: [id number] Additional ID: [id number] Contact details Address: [address] [address] State: [place] City: [place] Zip code: [address] Past Medical History Allergies Allergen Reaction Date Comments Reported Other allergy 07/10/2016 Tetanus Admission Admission Data Admission Date: 08/20/2017 Admission Time: 9:14 Procedure Procedure Types Cath Procedure Diagnostic Procedure LHC [facility] w/Coronaries FFR/IVUS Intra-Coronary IVUS Initial PCI Procedure PTCA PTCA Initial Miscellaneous Procedures Moderate Sedation up to 15 minutes Procedure Description Procedure Date Procedure Date: 08/20/2017 Procedure Start Time: 13:02 Procedure End Time: 13:24 Procedure Staff Name Function Miguel Rosado RT Monitor Cliff Avilez RN Machinery Rigger Regan Santos MD Performing Physician Marlen Castillo RT Scrub Dee Barros RN Nurse Procedure Data Cath Procedure Fluoroscopy Diagnostic fluoroscopy Total fluoroscopy Time: 5 time: 5 min min Diagnostic fluoroscopy Total fluoroscopy dose: 547 dose: 547 mGy mGy Contrast Material Contrast Material Type Amount (ml) Isovue 300 85 Entry Location Entry Primary Successful Side Size Upsize Upsize Entry Closure Dee ccessful Closure Location (Fr) 1 (Fr) 2 (Fr) Remarks Device Remarks Radial Right 6 Fr Mechanical artery Short Compression Estimated blood loss: 10 ml Diagnostic catheters Device Type Used For End Catheter Placement DIAGNOSTIC Munday 110cm 5 Procedure Fr catheter ([id number]) Procedure Complications No complications Procedure Medications Medication Administration Route Dosage 0.9% NaCl I.V. 100 ml/hr Oxygen NC 2 l/min Lidocaine 2% added to field 20 Heparin Flush Bag added to field 2 bags (1000units/500ml NS) Radial Cocktail added to field 1 syringe (Verapomil 2mg/Nitro 400mcg/Heparin 1500units) Fentanyl I.V. 50 mcg Versed I.V. 1 mg Versed I.V. 1 mg Fentanyl I.V. 50 mcg Heparin Bolus I.V. 4000 units Hemodynamics Rest Heart Rate: 55 (bpm) Snapshots Pre Cath Intra NCS Post Cath Vital Signs Time Heart Resp SPO2 etCO2 NIBP (mmHg) Rhythm Pain Sedation Rate (ipm) (%) (mmHg) Status Level (bpm) 12:51:24 53 14 100 30.9 197/96(157) NSR 0 (11) 10(A) , No pain 12:56:07 52 14 100 33.9 170/93(145) NSR 0 (11) 10(A) , No pain 13:00:43 52 14 98 40.6 140/79(109) NSR 0 (11) 10(A) , No pain 13:05:22 58 14 97 40.6 108/68(86) NSR 0 (11) 10(A) , No pain 13:09:54 60 14 98 41.4 120/73(91) NSR 0 (11) 10(A) , No pain 13:14:31 56 14 98 41.4 131/76(104) NSR 0 (11) 10(A) , No pain 13:19:09 55 12 97 42.9 119/76(97) NSR 0 (11) 10(A) , No pain 13:23:42 55 12 98 42.9 130/84(105) NSR 0 (11) 10(A) , No pain Medications Time Medication Route Dose Verified Delivered Reason Not es Effectiveness by by 12:36:58 0.9% NaCl I.V. 100ml/hr Regan Price used for Danielle Barros RN procedure 12:37:11 Oxygen NC 2 l/min Regan Price Per physician Danielle Barros RN 12:37:20 Lidocaine 2% added 20ml Regan Spears for local to vial Danielle Santos MD anesthetic field 12:37:27 Heparin Flush added 2 bags Regan Spears used for Bag to Danielle Santos MD procedure (1000units/500ml field NS) 12:48:54 Radial Cocktail added 1 Regan Spears for (Verapomil to syringe Danielle Santos MD vasodilation 2mg/Nitro field 400mcg/Hepari 13:01:39 Fentanyl I.V. 50 mcg Regan Price for sedation Danielle Barros RN 13:01:50 Versed I.V. 1 mg Regan Price for sedation Danielle Barros RN 13:06:02 Versed I.V. 1 mg Regan Price for sedation Danielle Barros RN 13:06:08 Fentanyl I.V. 50 mcg Regan Price for sedation Danielle Barros RN 13:14:08 Heparin Bolus I.V. 4000 Regan Price for barry ified units Danielle Barros RN anticoagulation by Procedure Log Time Note 12:20:06 Cliff Avilez RN sent for patient. Start room use. 12:33:07 Time tracking: Regular hours 12:33:12 Plan of Care:Hemodynamics will remain stable., Cardiac rhythm will remain stable., Comfort level will be maintained., Respiratory function will remain adequate., Patient/ family verbilizes understanding of procedure., Procedure tolerated without complication., Recovers from procedure without complications.. 12:36:58 0.9% NaCl 100ml/hr I.V. was administered by Dee Barros RN; used for procedure; 12:37:11 Oxygen 2 l/min NC was administered by Dee Barros RN; Per physician; 12:37:20 Lidocaine 2% 20ml vial added to field was administered by Regan Santos MD; for local anesthetic; 12:37:27 Heparin Flush Bag (1000units/500ml NS) 2 bags added to field was administered by Regan Santos MD; used for procedure; 12:38:51 Patient received from Pre/Post Procedure Room to CCL 1 Alert and oriented. Tansferred to table in Supine position. 12:38:52 Warm blankets applied, and cy hugger turned on for patient comfort. 12:38:53 Correct patient and procedure confirmed by team. 12:38:54 Signed procedure consent form obtained from patient. 12:38:56 ECG and BP/O2 sat monitors applied to patient. 12:48:54 Radial Cocktail (Verapomil 2mg/Nitro 400mcg/Heparin 1500units) 1 syringe added to field was administered by Regan Santos MD; for vasodilation; 12:48:58 Vital chart was started 12:51:29 Baseline sample Acquired. 12:51:33 Rhythm: sinus bradycardia 12:51:40 Full Disclosure recording started 12:51:48 H&P Date Dictated: 08/18/2017 Within 30 days and on chart., H&P Addendum completed by physician on day of procedure. (MUST COMPLETE FOR ALL OUTPATIENTS). 12:51:49 Pre-op teaching completed and patient verbalized understanding. 12:51:49 Pre-procedure instructions explained to patient. 12:51:55 Family in patients room. 12:51:56 Patient NPO since Midnight. 12:51:57 Is the patient allergic to Iodine/contrast media? No. 12:51:58 Is patient on blood thinner?Yes 12:52:01 ACC The patient was administered the following blood thiners within the last 24 hours: ACCPlavix 12:52:03 Patient diabetic? No. 12:52:05 Previous problem with sedation/anesthesia? No ? 12:52:06 Snore? No 12:52:12 Sleep apnea? No 12:52:13 Opens mouth fully? Yes 12:52:13 Deviated septum? No 12:52:14 Sticks out tongue? Yes 12:52:16 Airway obstruction? No ? 12:52:19 Dentures? No ? 12:52:21 Pre procedure: right dorsailis pedis pulse 1+ Palpable, but thready & weak; easily obliterated 12:53:31 Modified Blair's test Ulnar < 7 seconds 12:53:39 IV patent on arrival in left forearm with 0.9% NaCl at O. 12:53:41 Patient pain scale 0/10 ?. 12:53:44 Lab results completed and on chart. 12:53:46 Right Radial & Right Groin area was prepped with chlora-prep and draped in sterile fashion 12:53:48 Alarms reviewed by R. N. 12:53:49 Sharps counted by scrub and verified by R.N. 12:53:56 Use device set Radial Dx 12:53:59 Tegaderm 4 x 4 (1626W) opened to sterile field. 12:54:00 ACIST Manifold (33855) opened to sterile field. 12:54:01 ACIST Hand Control (40049) opened to sterile field. 12:54:02 Bag Decanter (2001S) opened to sterile field. 12:54:02 Medline Cath Pack ([id number]) opened to sterile field. 12:54:02 ACIST Syringe (23553) opened to sterile field. 12:54:03 DIAGNOSTIC WIRE .035 260cm J wire (437524) opened to sterile field. 12:54:03 SHEATH 6FR Slender ([id number]) opened to sterile field. 12:54:04 MBrace Wrist Support ([id number]) opened to sterile field. 12:54:27 Physician paged 12:54:53 Baseline sample Acquired. 13:00:38 Final Timeout: patient, procedure, and site verified with staff and physician. All members of the team are in agreement. 13:00:38 --------ALL STOP TIME OUT------ 13:00:40 Right Radial & Right Groin site verified by team. 13:00:47 Physical assessment completed. ASA score P 2 - A patient with mild systemic disease as per Regan Santos MD. 13:00:50 Sedation plan: IV Moderate Sedation Medication:Versed, Fentanyl 13:01:39 Fentanyl 50 mcg I.V. was administered by Dee Barros RN; for sedation; 13:01:50 Versed 1 mg I.V. was administered by Dee Barros RN; for sedation; 13:02:11 Procedure started. 13:02:17 Local anesthetic to right radial artery with Lidocaine 2% by Regan Santos MD.INITIAL ACCESS ONLY 13:02:49 A 6 Fr Short sheath was inserted into the Right Radial artery 13:03:05 A DIAGNOSTIC Munday 110cm 5 Fr catheter (147003) was advanced over the wire and used for Procedure. 13:04:14 LV angiography performed. 13:04:15 LV gram done using SKAGGS 13:04:20 EF : 60 % 13:04:24 Injector settings: Ml/sec: 7, Volume: 15, 13:04:57 RCA angiography performed. 13:05:18 Catheter exchanged over wire. 13:06:02 Versed 1 mg I.V. was administered by Dee Barros RN; for sedation; 13:06:08 Fentanyl 50 mcg I.V. was administered by Dee Barros RN; for sedation; 13:06:35 GUIDE 6FR XB 3.5 catheter ([id number]) opened to sterile field. 13:06:51 6 Fr XB 3.5 guide catheter was inserted over the wire 13:07:09 Guide Catheter removed. unable to cannulate vessel. 13:07:20 GUIDE 6FR EBU 3.0 catheter ([id number]) opened to sterile field. 13:07:31 6 Fr EBU 3 guide catheter was inserted over the wire 13:09:47 LCA angiography performed. 13:10:52 Use device set DANIELLE PCI 13:10:57 INFLATOR Merit BasixCompak (XV3831) opened to sterile field. 13:11:08 WHISPER 190cm wire ([id number]) opened to sterile field. 13:11:17 Hyampom [place] IVUS Catheter (87084F) opened to sterile field. 13:11:26 Whisper wire advanced. 13:11:48 Wire advanced across lesion. 13:11:57 IVUS catheter advanced over wire. 13:12:34 IVUS pass to LAD lesion performed. 13:12:35 IVUS catheter removed over wire. 13:14:08 Heparin Bolus 4000 units I.V. was administered by Dee Barros RN; for anticoagulation; verified by 13:14:34 Inflation number: 1 A EUPHORA 3.5 x 15 Balloon ([id number]) was prepped and advanced across the Mid LAD, then inflated to 21 ESTRELLA for 0:10 (min:sec). 13:14:52 Multiple inflations made at 21 Atms. 13:16:02 Wire removed. 13:16:02 Balloon removed over the wire. 13:16:03 Guide catheter removed. 13:16:24 TR BAND Standard ([id number]) opened to sterile field. 13:16:32 Sheath removed intact; hemostasis achieved with Mechanical Compression to the Right Radial artery. 13:16:35 Procedure ended.(Physican Out) 13:16:56 Fluoroscopy time 05.00 minutes. 13:17:00 Fluoroscopy dose: 547 mGy 13:17:00 Flurop Dose total: 547 13:17:04 Contrast amount:Isovue 300 85ml. 13:17:06 Sharps counted by scrub and verified by R.N. 13:17:09 TR band inflated with 12cc of air. 13:17:10 Insertion/operative site no bleeding no hematoma. 13:17:12 Post Procedure Pulses reassessed and unchanged 13:17:15 Post-procedure physical assessment completed. ASA score P 2 - A patient with mild systemic disease as per Regan Santos MD. 13:17:18 Post procedure rhythm: unchanged. 13:17:20 Estimated blood loss: 10 ml 13:17:25 Post procedure instruction explained to patient.Patient verbalizes understanding. 13:17:26 Patient needs reinforcement of post procedure teaching. 13:21:40 Procedure type changed to Cath procedure, Diagnostic procedure, LHC, LHC w/Coronaries, FFR/IVUS, Intra-Coronary IVUS Initial, PCI procedure, PTCA, PTCA Initial, Miscellaneous Procedures, Moderate Sedation up to 15 minutes 13:21:42 Procedure and supply charges have been captured, reviewed, submitted and are correct. 13:21:45 Procedure Complication : No complications 13:24:33 Vital chart was stopped 13:24:34 See physician's report for complete and final results. 13:24:36 Report given to Pre/Post Procedure Room. 13:24:38 Patient transfered to Pre/Post Procedure Room with Stretcher. 13:24:42 Full Disclosure recording stopped 13:24:42 Procedure ended. 13:24:49 End room use (Document Last) Intervention Summary Intervention Notes Time ActionType Lesion and Equipment Action# Pressure Duration Attributes Used 13:14:34 Inflate Mid LAD EUPHORA 1 21 00:10 balloon 3.5 x 15 Balloon ([id number]) Device Usage Item Name Manufacture Quantity Catalog Hospital Part Current Minima l Lot# / Number Charge Number Stock Stock Serial# Code Tegaderm 4 x 3M 1 1626W 499155 640883 [id number] 5 4 (1626W) ACIST Acist 1 62471 312824 820109 716933 5 Manifold Medical (90996) Systems Inc ACIST Hand Acist 1 23550 903699 720386 057048 5 Control Medical (08145) Systems Inc ACIST Acist 1 72220 722063 376011 548513 20 Syringe Medical (55886) Systems Inc Medline Cath Cardinal 1 [id number] 427439 09199 356938 5 Pack Health ([id number]) Bag Decanter Microtek 1 2001S 413541 04923 234990 5 (2001S) Medical Inc. SHEATH 6FR Terumo 1 [id number] 789023 026471 923384 40 Slender ([id number]) DIAGNOSTIC [facility] Jose Daniel 1 532349 328600 306259 801718 30 WIRE .035 260cm J wire (228713) MBrace Wrist Advanced 1 140-0250-00 479005 47084 455758 5 Support Vascular (401931336) Dynamics DIAGNOSTIC Terumo 1 40-8653 944522 453758 925371 5 Munday 110cm 5 Fr catheter (319970) GUIDE 6FR XB Cardinal 1 [id number] 469868 591192 042275 2 3.5 catheter Health (79345818) GUIDE 6FR Medtronic 1 [id number] 318263 47100 394102 0 EBU 3.0 catheter ([id number]) INFLATOR Merit 1 NW9576 247139 794154 884005 15 LensX Lasers Medical BasixCompak (XQ9801) WHISPER Roger 1 [id number] 502482 171231 770907 5 190cm wire Vascular ([id number]) Hyampom Hyampom 1 41358E 637373 814082 553817 8 [place] IVUS Catheter (93708G) EUPHORA 3.5 Medtronic 1 [id number] 496107 275008 954466 5 [id number] x 15 Balloon ([id number]) TR BAND Terumo 1 [id number] 075559 068302 287273 40 Standard ([id number]) Signature Audit [place] Stage Time Signature Unsigned Intra-Procedure 08/20/2017 Miguel Rosado 1:25:55 PM RT(R) Signatures Monitor : Miguel Rosado RT Signature : Date : Time : [facility] [address] [place] [address]
[2017-08-20] MEDS ORDERED: BAYER CHEWABLE81 MG PO (09:50)
[2017-08-20 09:56] VITALS: BP 137/81; Ht 180.3 cm; Wt 90.9 kg
[2017-08-20 10:10] LABS: BASOPHILS 0.1 % (0-2); EOSINOPHILS 2.8 % (0-7); HEMATOCRIT 44.8 % (42.0-54.0); HEMOGLOBIN 15.1 g/dL (13.5-17.5); IMMATURE GRANULOCYTES 0.3 % (0-5); LYMPHOCYTES 26.7 % (15-50); MCH 30.2 pg (26.0-34.0); MCHC 33.7 g/dL (31.0-37.0); MCV 89.6 fL (80.0-100.0); MONOCYTES 8.7 % (2-11); NEUTROPHILS 61.4 % (40-80); PLATELET COUNT 263 10x3/uL (130-400); RDW 13.1 % (11.5-14.5); WBC 6.7 10x3/uL (4.8-10.8)
[2017-08-20 10:19] LABS: ANION GAP 9.4 mmol/L (8-16); CALCIUM 9.5 mg/dL (8.5-10.1); CARBON DIOXIDE 31.7 mmol/L (21.0-32.0); CREATININE - SERUM 1.5 mg/dL (0.6-1.3); POTASSIUM - SERUM 4.1 mmol/L (3.5-5.1)
--- NOTE | 2017-08-20 14:22 | NUR ---
1350 LYING FLAT, ROOM AIR WITH NO RESP DISTRESS. SINUS SHEYLA, RATE 52 WNO C/O CHEST PAIN. PULSES PALP X 4. AT BEDSIDE. SIPPING SODA WITH NO NAUSEA.
--- NOTE | 2017-08-20 14:55 | NUR ---
HOB ELEVATED. EATING TURKEY SANDWICH AND SIPPING SODA WITH NO C/O NAUSEA. AT SIDE. R WRIST REMAINS C/D/I.
--- NOTE | 2017-08-20 16:57 | NUR ---
1545 RESTING WITH EYES CLOSED. ALL VITALS WNL. R WRIST TR BAND C/D/I W NO HEMATOMA OR BLEEDING. EATING TURKEY SANDWICH W NO C/O NAUSEA. 1645 2CC AIR REMOVED FROM R WRIST TR BAND. 1658 PIV REMOVED FROM LEFT HAND WITH BANDAID APPLIED. AMBULATED TO BATHROOM TO VOID. BACK TO BEDSIDE.
--- NOTE | 2017-08-20 17:14 | NUR ---
TR BAND WEANED COMPLETELY. TEGADERM AND COTTON BALL APPLIED. BRACE REAPPLIED TO R WRIST. D/C INSTRUCTIONS DISCUSSED WITH PATIENT AND AT BEDSIDE. WHEELED OUT VIA WHEELCHAIR BY CATH TEAM.
--- NOTE | 2017-09-01 15:46 | OP ---
PATIENT NAME: IGOR HERNANDEZ MEDICAL RECORD: [id number] :43 LOCATION:D.CAT ADMISSION DATE: SURGEON: SHAHNAZ MOLINA MD DATE OF OPERATION: 08/20/2017 PROCEDURES: 1. PTCA, LAD. 2. Intravascular ultrasound. 3. Left heart catheterization. 4. Selective coronary angiography. 5. Left ventriculogram. INDICATION: Angina and coronary artery disease. PROCEDURE IN DETAIL: After informed consent was obtained and after detailed explanation of risks, benefits as well as alternative therapies, the patient elected to proceed with angiogram and angioplasty. The right radial artery area was prepped and draped in normal sterile fashion. The right radial artery was cannulated via modified Seldinger technique with placement of 6-Italian sheath. All catheters were exchanged through this sheath. FINDINGS: Left ventriculogram was performed in standard 30-degree SKAGGS view reveals good cardiac wall motion, ejection fraction 50%. SELECTIVE CORONARY ANGIOGRAPHY: 1. Left main is with no significant angiographic disease. 2. Left anterior descending has previously placed stents. There is greater than 70% stenosis proximally. There is in-stent restenosis. 3. Left circumflex has previously placed stents, these are widely patent with no significant restenosis. No disease elsewise. 4. The right coronary artery has previously placed stents, these are widely patent with no significant restenosis. No disease elsewise. Intravascular ultrasound confirmed that there was greater than 70% in-stent restenosis of the proximal LAD, this was addressed with a 3.5 balloon, high pressure inflation up to 21 atmospheres. Multiple inflations were made. Result was 0% residual stenosis. OVERALL IMPRESSION: Successful high pressure percutaneous transluminal coronary angioplasty for in-stent restenosis of the proximal LAD going from greater than 70% initial stenosis to 0% residual. TRANSINT:[id number] Voice Confirmation ID: [id number] DOCUMENT ID: [id number] SHAHNAZ MOLINA MD at 1546 CC: [id number] DICTATION DATE: 08/20/17 1320 HOME THEATER SPECIALIST: 08/20/17 1458 DEP CLI 08/20/17 [place] [address]
== END 2017-08-20 17:15 | disposition home or self-care (01) ==
LOC: D.CATH 09:14
PROVIDERS: Internal Medicine Interventional Cardiology
DX: I25.119 Atherosclerotic heart disease of native coronary artery with unspecified angina pectoris (principal); T82.855A Stenosis of coronary artery stent, initial encounter; Z01.812 Encounter for preprocedural laboratory examination

== ENCOUNTER 2017-10-08 07:57 | Outpatient (CLI) | payer MEDICARE, BC ==
[~2017-10-08] VITALS: Ht 177.8 cm; Wt 90.9 kg
--- NOTE | ~2017-10-08 | OP ---
PATIENT NAME: IGOR HERNANDEZ MEDICAL RECORD: [id number] :43 LOCATION:D.CAT ADMISSION DATE: SURGEON: SHAHNAZ MOLINA MD DATE OF OPERATION: 10/08/2017 PROCEDURES: 1. PTCA left circumflex. 2. Intravascular ultrasound of left circumflex. 3. Left heart catheterization. 4. Selective coronary angiography. 5. Left ventriculogram. INDICATION: Angina and coronary artery disease. PROCEDURE IN DETAIL: After informed consent was obtained and after detailed explanation of risks, benefits as well as alternative therapies, the patient elected to proceed with angiogram and angioplasty. The right radial area was prepped and draped in normal sterile fashion. The right radial artery was cannulated via modified Seldinger technique with placement of 6-Korean sheath. All catheters exchanged through this sheath. FINDINGS: The left ventriculogram was performed in standard 30-degree SKAGGS view, reveals good cardiac wall motion throughout all segments. Overall, ejection fraction estimated 60%. SELECTIVE CORONARY ANGIOGRAPHY: 1. Left main showed no significant angiographic disease. 2. Left anterior descending has previously placed stents, these are widely patent with no significant restenosis. There is no disease elsewise throughout the LAD or its branches. 3. Left circumflex has previously placed stent with greater than 70% in-stent restenosis confirmed by intravascular ultrasound in the mid vessel. 4. The right coronary has previously placed stents, these are widely patent with no significant restenosis. There is no disease elsewise. PTCA STENT OF THE LEFT CIRCUMFLEX: High pressure PTCA was made multiple inflations up to 17 atmospheres with 3.0 balloon. Result was 0% residual stenosis. OVERALL IMPRESSION: Successful percutaneous transluminal coronary angioplasty for in-stent restenosis in the mid circumflex going from greater than 70%, initial stenosis to 0% residual. TRANSINT:[id number] Voice Confirmation ID: [id number] DOCUMENT ID: [id number] SHAHNAZ MOLINA MD CC: [id number] DICTATION DATE: 10/08/17 1025 PICKER PACKER: 10/08/17 [address] [place] [address]
--- NOTE | ~2017-10-08 | HEMODYNAMI ---
PATIENT:IGOR HERNANDEZ MEDICAL RECORD: [id number] : 43 LOCATION:[facility] ADMISSION DATE: 10/08/17 Generatedon:10/08/201710:25 Patient name: IGOR HERNANDEZ Patient #: [id number] : 1945 Date of study: 10/08/2017 Page: Of Hemodynamic Procedure Report Patient Data Patient Demographics Procedure consent was obtained First Name: IGOR Gender: Male Last Name: DAVID : 1945 [facility] Initial: OTILIA Age: 71 year(s) Patient #: [id number] Race: SSN: [id number] Additional ID: [id number] Contact details Address: [address] [address] State: [place] City: [place] Zip code: [address] Past Medical History Allergies Allergen Reaction Date Comments Reported Other allergy 07/10/2016 Tetanus Admission Admission Data Admission Date: 10/08/2017 Admission Time: 7:57 Procedure Procedure Types Cath Procedure Diagnostic Procedure [facility] w/Coronaries PCI Procedure PTCA PTCA Initial Procedure Description Procedure Date Procedure Date: 10/08/2017 Procedure Start Time: 9:59 Procedure End Time: 10:24 Procedure Staff Name Function Regan Santos MD Performing Physician Brigette Acevedo RT Monitor Keke Polk RT Scrub Cliff Avilez RN Nurse Indication Angina Procedure Data Cath Procedure Fluoroscopy Diagnostic fluoroscopy Total fluoroscopy Time: 8.3 time: 8.3 min min Diagnostic fluoroscopy Total fluoroscopy dose: 8.3 dose: 8.3 mGy mGy Contrast Material Contrast Material Type Amount (ml) Isovue 300 79 Entry Location Entry Primary Successful Side Size Upsize Upsize Entry Closure Dee ccessful Closure Location (Fr) 1 (Fr) 2 (Fr) Remarks Device Remarks Radial Right 6 Fr Mechanical Tr Band artery Short Compression Estimated blood loss: 10 ml Diagnostic catheters Device Type Used For End Catheter Placement DIAGNOSTIC Monroe 110cm 5 Procedure Fr catheter ([id number]) Procedure Complications No complications Procedure Medications Medication Administration Route Dosage Oxygen NC 2 l/min Heparin Flush Bag added to field 2 bags (1000units/500ml NS) 0.9% NaCl I.V. 100 ml/hr Radial Cocktail added to field 1 syringe (Verapomil 2mg/Nitro 400mcg/Heparin 1500units) Fentanyl I.V. 50 mcg Versed I.V. 1 mg Radial Cocktail I.A. 1 syringe (Verapomil 2mg/Nitro 400mcg/Heparin 1500units) Fentanyl I.V. 50 mcg Versed I.V. 1 mg Heparin Bolus I.V. 4000 units Hemodynamics Rest Heart Rate: 53 (bpm) Snapshots Pre Cath Intra NCS Post Cath Vital Signs Time Heart Resp SPO2 etCO2 NIBP (mmHg) Rhythm Pain Sedation Rate (ipm) (%) (mmHg) Status Level (bpm) 9:39:36 53 16 100 0 169/93(147) NSR 0 (11) 10(A) , No pain 9:44:52 52 16 99 0 160/91(130) NSR 0 (11) 10(A) , No pain 9:49:12 53 16 100 19 168/85(132) NSR 0 (11) 10(A) , No pain 9:53:34 50 16 97 35 110/72(82) NSR 0 (11) 10(A) , No pain 9:57:40 84 17 97 28.2 108/74(83) NSR 0 (11) 10(A) , No pain 10:01:58 58 15 35.8 86/48(64) NSR 0 (11) 10(A) , No pain 10:05:59 61 16 92 43.4 92/53(65) NSR 0 (11) 9(A) , No pain 10:10:05 57 16 97 41.1 97/54(70) NSR 0 (11) 9(A) , No pain 10:14:09 56 15 97 41.1 92/63(79) NSR 0 (11) 9(A) , No pain 10:18:13 54 16 97 41.1 92/56(68) NSR 0 (11) 9(A) , No pain 10:22:18 53 16 97 40.3 97/55(79) NSR 0 (11) 9(A) , No pain Medications Time Medication Route Dose Verified Delivered Reason Note s Effectiveness by by 9:47:34 Oxygen NC 2 l/min Regan Coronado Per physician Danielle Avilez RN 9:47:44 Heparin Flush added 2 bags Regan Coronado used for Bag to Danielle Avilez RN procedure (1000units/500ml field NS) 9:48:00 0.9% NaCl I.V. 100 Regan Winy Per physician ml/hr Danielle Avilez RN 9:48:10 Radial Cocktail added 1 Regan Coronado used for (Verapomil to syringe Danielle Avilez RN procedure 2mg/Nitro field 400mcg/Heparin 1500units) 9:57:47 Fentanyl I.V. 50 mcg Regan Coronado for sedation Danielle Avilez RN 9:57:54 Versed I.V. 1 mg Regan Coronado for sedation Danielle Avilez RN 10:01:55 Radial Cocktail I.A. 1 Regan Regan for (Verapomil syringe Danielle Santos MD vasodilation 2mg/Nitro 400mcg/Heparin 1500units) 10:02:00 Fentanyl I.V. 50 mcg Regan Coronado for sedation Danielle Avilez RN 10:02:04 Versed I.V. 1 mg Regan Coronado for sedation Danielle Avilez RN 10:06:07 Heparin Bolus I.V. 4000 Regan Winy for units Danielle Avilez RN anticoagulation Procedure Log Time Note 9:15:59 Brigette Acevedo RT(R) sent for patient. Start room use. 9:27:54 Indication : Angina 9:29:07 Time tracking: Regular hours 9:29:10 Plan of Care:Hemodynamics will remain stable., Cardiac rhythm will remain stable., Comfort level will be maintained., Respiratory function will remain adequate., Patient/ family verbilizes understanding of procedure., Procedure tolerated without complication., Recovers from procedure without complications.. 9:38:18 Patient received from Pre/Post Procedure Room to CCL 2 Alert and oriented. Tansferred to table in Supine position. 9:38:19 Warm blankets applied, and cy hugger turned on for patient comfort. 9:38:19 Correct patient and procedure confirmed by team. 9:38:20 Signed procedure consent form obtained from patient. 9:38:21 ECG and BP/O2 sat monitors applied to patient. 9:38:21 Vital chart was started 9:38:22 Baseline sample Acquired. 9:38:26 Rhythm: sinus rhythm 9:38:27 Full Disclosure recording started 9:38:32 H&P Date Dictated: 10/08/2017 Within 30 days and on chart., H&P Addendum completed by physician on day of procedure. (MUST COMPLETE FOR ALL OUTPATIENTS). 9:38:33 Pre-procedure instructions explained to patient. 9:38:34 Pre-op teaching completed and patient verbalized understanding. 9:38:35 Family in waiting room. 9:38:36 Patient NPO since Midnight. 9:38:40 Is the patient allergic to Iodine/contrast media? No. 9:38:41 Was the patient premedicated? No 9:38:42 Is patient on blood thinner?Yes 9:38:45 ACC The patient was administered the following blood thiners within the last 24 hours: ACCPlavix 9:38:47 Patient diabetic? No. 9:38:50 Previous problem with sedation/anesthesia? No ? 9:38:52 Snore? No 9:38:53 Sleep apnea? No 9:38:54 Deviated septum? No 9:38:55 Opens mouth fully? Yes 9:38:56 Sticks out tongue? Yes 9:38:57 Airway obstruction? No ? 9:39:00 Dentures? No ? 9:39:04 Pre procedure: right dorsailis pedis pulse 2+ Normal; easily identifiable; not easily obliterated 9:39:06 Pre procedure: left dorsailis pedis pulse 2+ Normal; easily identifiable; not easily obliterated 9:39:07 Patient pain scale 0/10 ?. 9:39:11 Modified Blair's test Radial < 7 seconds 9:39:17 IV patent on arrival in left forearm with 0.9% NaCl at KVO. 9:39:20 Lab results completed and on chart. 9:39:23 Right Radial & Right Groin area was prepped with chlora-prep and draped in sterile fashion 9:39:24 Alarms reviewed by R. N. 9:39:24 Sharps counted by scrub and verified by R.N. 9:44:38 Physician paged 9:44:41 Physician arrived 9:44:45 Right Radial & Right Groin site verified by team. 9:44:49 Physical assessment completed. ASA score P 2 - A patient with mild systemic disease as per Regan Santos MD. 9:44:53 Sedation plan: IV Moderate Sedation Medication:Versed, Fentanyl 9:45:00 Baseline sample Acquired. 9:45:14 Diagnostic Cath status Elective 9:45:21 Use device set Radial Dx or PCI 9:45:24 ACIST Syringe (64348) opened to sterile field. 9:45:25 Medline Cath Pack ([id number]) opened to sterile field. 9:45:26 Bag Decanter (2002S) opened to sterile field. 9:45:29 SHEATH 6FR Slender ([id number]) opened to sterile field. 9:45:29 DIAGNOSTIC WIRE .035 260cm J wire (872317) opened to sterile field. 9:45:31 ACIST Hand Control (01704) opened to sterile field. 9:45:31 ACIST Manifold (63682) opened to sterile field. 9:45:34 Tegaderm 4 x 4 (1626W) opened to sterile field. 9:47:34 Oxygen 2 l/min NC was administered by Cliff Avilez RN; Per physician; 9:47:44 Heparin Flush Bag (1000units/500ml NS) 2 bags added to field was administered by Cliff Avilez RN; used for procedure; 9:48:00 0.9% NaCl 100 ml/hr I.V. was administered by Cliff Avilez RN; Per physician; 9:48:10 Radial Cocktail (Verapomil 2mg/Nitro 400mcg/Heparin 1500units) 1 syringe added to field was administered by Cliff Avilez RN; used for procedure; 9:57:20 --------ALL STOP TIME OUT------ 9:57:27 Final Timeout: patient, procedure, and site verified with staff and physician. All members of the team are in agreement. 9:57:47 Fentanyl 50 mcg I.V. was administered by Cliff Avilez RN; for sedation; 9:57:54 Versed 1 mg I.V. was administered by Cliff Avilez RN; for sedation; 9:57:55 Zero performed for pressure channel P1 9:59:14 Procedure started. 9:59:28 Local anesthetic to right radial artery with Lidocaine 2% by Regan Santos MD.INITIAL ACCESS ONLY 9:59:51 A 6 Fr Short sheath was inserted into the Right Radial artery 10:00:03 A DIAGNOSTIC Monroe 110cm 5 Fr catheter (286665) was advanced over the wire and used for Procedure. 10:01:14 J wire advanced. 10:01:20 LV angiography performed. 10:01:55 Radial Cocktail (Verapomil 2mg/Nitro 400mcg/Heparin 1500units) 1 syringe I.A. was administered by Regan Santos MD; for vasodilation; 10:02:00 Fentanyl 50 mcg I.V. was administered by Cliff Avilez RN; for sedation; 10:02:02 EF : 60 % 10:02:03 LCA angiography performed. 10:02:04 Versed 1 mg I.V. was administered by Cliff Avilez RN; for sedation; 10:03:57 RCA angiography performed. 10:04:27 Catheter removed. 10:05:07 INFLATOR Merit BasixCompak (HE9692) opened to sterile field. 10:05:07 CHOICE PT Extra Support 182cm wire ([id number]) opened to sterile field. 10:05:25 GUIDE 6FR XBLAD 3.5 catheter ([id number]) opened to sterile field. 10:05:43 6 Fr XBLAD guide catheter was inserted over the wire 10:06:07 Heparin Bolus 4000 units I.V. was administered by Cliff Avilez RN; for anticoagulation; 10:06:38 Guide catheter removed. 10:08:06 GUIDE 6Fr Monroe 4.0 catheter (371338) opened to sterile field. 10:08:18 6 Fr Monroe guide catheter was inserted over the wire 10:11:15 Guide catheter removed. 10:11:17 GUIDE 6FR EBU 3.0 catheter ([id number]) opened to sterile field. 10:11:28 6 Fr EBU 3.0 guide catheter was inserted over the wire 10:12:10 Ex support wire advanced. 10:13:14 Galata [place] IVUS Catheter (39472G) opened to sterile field. 10:13:19 IVUS catheter advanced over wire. 10:15:34 IVUS catheter removed over wire. 10:16:44 Inflation number: 1 A EUPHORA 3.0 x 30 Balloon ([id number]) was prepped and advanced across the Mid CX, then inflated to 13 ESTRELLA for 0:33 (min:sec). 10:17:46 multiple inflation to 15 10:18:37 Stent catheter was removed intact over wire. 10:19:25 Wire removed. 10:19:26 Guide catheter removed. 10:19:32 TR BAND Standard ([id number]) opened to sterile field. 10:20:17 Sheath removed intact; hemostasis achieved with Mechanical Compression to the Right Radial artery. 10:20:19 Procedure ended.(Physican Out) 10:20:33 Fluoroscopy time 08.30 minutes. 10:20:50 Fluoroscopy dose: 8.3 mGy 10:20:50 Flurop Dose total: 8.3 10:20:56 Contrast amount:Isovue 300 79ml. 10:20:58 Sharps counted by scrub and verified by R.N. 10:21:01 TR band inflated with 10cc of air. 10:21:16 Post right radial artery:stable 10:21:17 Post Procedure Pulses reassessed and unchanged 10:21:21 Post-procedure physical assessment completed. ASA score P 2 - A patient with mild systemic disease as per Regan Santos MD. 10:21:31 Post procedure rhythm: unchanged. 10:21:35 Estimated blood loss: 10 ml 10:21:36 Post procedure instruction explained to patient.Patient verbalizes understanding. 10:23:21 Procedure type changed to Cath procedure, Diagnostic procedure, LHC, LHC w/Coronaries, PCI procedure, PTCA, PTCA Initial 10:23:27 Procedure and supply charges have been captured, reviewed, submitted and are correct. 10:24:23 Procedure Complication : No complications 10:24:26 Vital chart was stopped 10:24:27 See physician's report for complete and final results. 10:24:31 Report given to Pre/Post Procedure Room. 10:24:35 Patient transfered to Pre/Post Procedure Room with Stretcher. 10:24:38 Procedure ended. 10:24:38 Full Disclosure recording stopped 10:24:43 End room use (Document Last) Intervention Summary Intervention Notes Time ActionType Lesion and Equipment Action# Pressure Duration Attributes Used 10:16:44 Inflate Mid CX EUPHORA 1 13 00:33 balloon 3.0 x 30 Balloon ([id number]) Device Usage Item Name Manufacture Quantity Catalog Number Hospital Part Current Mini mal Lot# / Charge Number Stock Stock Serial# Code ACIST Acist 1 66205 445938 702096 260709 20 Syringe Medical (66854) Systems Inc Medline Cath Cardinal 1 [id number] 732948 15257 941347 5 Pack Health ([id number]) Bag Decanter Microtek 1 2001S 966672 83326 813734 5 (2001S) Medical Inc. SHEATH 6FR Terumo 1 [id number] 425489 418920 741831 40 Slender ([id number]) DIAGNOSTIC St Jose Daniel 1 713468 662667 389375 072527 30 WIRE .035 260cm J wire (593842) ACIST Hand Acist 1 64790 318290 955896 514332 5 Control Medical (44397) Systems Inc ACIST Acist 1 62724 319934 869260 274346 5 Manifold Medical (36927) Systems Inc Tegaderm 4 x 3M 1 1626W 125614 182788 372683 5 4 (1626W) DIAGNOSTIC Terumo 1 40-5013 408983 513399 569788 5 Monroe 110cm 5 Fr catheter (733511) INFLATOR [employer] [place] 1 JM9659 966619 422332 007966 15 [employer] [place] Medical BasixCompak (NS0725) CHOICE PT Carson 1 [id number] 132152 582037 751301 5 Extra Scientific Support 182cm wire ([id number]) GUIDE 6FR Cardinal 1 [id number] 048938 187124 092743 10 XBLAD 3.5 Health catheter (03051574) GUIDE 6Fr Terumo 1 40-6311 267469 817982 704351 1 Monroe 4.0 catheter (301284) GUIDE 6FR Medtronic 1 [id number] 030984 14676 845615 0 EBU 3.0 catheter (TC0IMR19) Galata Galata 1 [id number] 065010 888013 315420 8 [place] IVUS Catheter (86135A) EUPHORA 3.0 Medtronic 1 [id number] 967474 229584 645764 5 [id number] x 30 Balloon ([id number]) TR BAND Terumo 1 [id number] 896063 789995 461842 40 Standard ([id number]) Signature Audit [place] Stage Time Signature Unsigned Intra-Procedure 10/08/2017 Brigette Acevedo 10:25:08 AM RT(R) Signatures Monitor : Brigette Acevedo Signature : RT Date : Time : [address] [address]
[2017-10-08 08:52] VITALS: BP 161/82; Ht 177.8 cm; Wt 90.9 kg
[2017-10-08 09:02] LABS: BASOPHILS 0.2 % (0-2); EOSINOPHILS 3.7 % (0-7); HEMATOCRIT 44.3 % (42.0-54.0); HEMOGLOBIN 15.3 g/dL (13.5-17.5); IMMATURE GRANULOCYTES 0.2 % (0-5); LYMPHOCYTES 29.8 % (15-50); MCH 30.1 pg (26.0-34.0); MCHC 34.5 g/dL (31.0-37.0); MCV 87.2 fL (80.0-100.0); MONOCYTES 8.5 % (2-11); NEUTROPHILS 57.6 % (40-80); PLATELET COUNT 277 10x3/uL (130-400); RBC 5.08 10x6/uL (4.20-6.10); RDW 13.5 % (11.5-14.5); WBC 5.9 10x3/uL (4.8-10.8)
[2017-10-08 09:11] LABS: ANION GAP 13.3 mmol/L (8-16); CALCIUM 9.3 mg/dL (8.5-10.1); CREATININE - SERUM 1.5 mg/dL (0.6-1.3); POTASSIUM - SERUM 3.3 mmol/L (3.5-5.1)
== END 2017-10-08 14:30 | disposition home or self-care (01) ==
LOC: D.CATH 07:57
PROVIDERS: Internal Medicine Interventional Cardiology
DX: I25.119 Atherosclerotic heart disease of native coronary artery with unspecified angina pectoris (principal); T82.855A Stenosis of coronary artery stent, initial encounter; Z01.812 Encounter for preprocedural laboratory examination

== ENCOUNTER → 2018-01-14 07:00 | Outpatient (CLI) | payer MEDICARE, BC ==
[~2018-01-14] VITALS: Ht 177.8 cm; Wt 90.9 kg
--- NOTE | ~2018-01-14 | HEMODYNAMI ---
PATIENT:IGOR HERNANDEZ MEDICAL RECORD: [id number] : 43 LOCATION:[facility] ADMISSION DATE: 01/14/18 Generatedon:01/14/201810:00 Patient name: IOGR HERNANDEZ Patient #: [id number] : 1945 Date of study: 01/14/2018 Page: Of Hemodynamic Procedure Report Patient Data Patient Demographics Procedure consent was obtained First Name: IGOR Gender: Male Last Name: DAVID : 1945 [facility] Initial: OTILIA Age: 72 year(s) Patient #: [id number] Race: SSN: [id number] Additional ID: [id number] Contact details Address: [place] [address] State: [place] City: [place] Zip code: [address] Past Medical History Allergies Allergen Reaction Date Comments Reported Other allergy 07/10/2016 Tetanus Other allergy 01/14/2018 TETANUS VACCINES AND TOXOID Admission Admission Data Admission Date: 01/14/2018 Admission Time: 7:00 Lab Results Lab Result Date: 01/14/2018 Lab Result Time: 0:00 Biochemistry Name Units Result Min Max BUN mg/dl 17 --(---*)-- 7 18 Creatinine mg/dl 1.5 --(----)-* 0.6 1.3 CBC Name Units Result Min Max Hemoglobin g/dl 15.1 --(-*--)-- 13.5 17.5 Procedure Procedure Types Cath Procedure Diagnostic Procedure LHC LHC w/Coronaries Procedure Description Procedure Date Procedure Date: 01/14/2018 Procedure Start Time: 9:48 Procedure End Time: 9:59 Procedure Staff Name Function Regan Santos MD Performing Physician Brigette Acevedo RT Monitor Marlen Castillo RT Scrub Kristy Pena RN Nurse Procedure Data Cath Procedure Fluoroscopy Diagnostic fluoroscopy Total fluoroscopy Time: 2.9 time: 2.9 min min Diagnostic fluoroscopy Total fluoroscopy dose: 588 dose: 588 mGy mGy Contrast Material Contrast Material Type Amount (ml) Isovue 300 53 Entry Location Entry Primary Successful Side Size Upsize Upsize Entry Closure Dee ccessful Closure Location (Fr) 1 (Fr) 2 (Fr) Remarks Device Remarks Radial Right 6 Fr Mechanical artery Short Compression Estimated blood loss: 10 ml Diagnostic catheters Device Type Used For End Catheter Placement DIAGNOSTIC [place] 110cm 5 Procedure Fr catheter ([id number]) Procedure Complications No complications Procedure Medications Medication Administration Route Dosage Oxygen NC 2 l/min Lidocaine 2% added to field 20 Heparin Flush Bag added to field 2 bags (1000units/500ml NS) 0.9% NaCl I.V. 100 ml/hr Radial Cocktail I.A. 1 syringe (Verapomil 2mg/Nitro 400mcg/Heparin 1500units) Versed I.V. 1 mg Fentanyl I.V. 50 mcg Versed I.V. 1 mg Fentanyl I.V. 50 mcg Versed I.V. 1 mg Fentanyl I.V. 50 mcg Hemodynamics Rest HGB: 15.1 (g/dl) Heart Rate: 49 (bpm) Snapshots Pre Cath Intra NCS Post Cath Vital Signs Time Heart Resp SPO2 etCO2 NIBP Rhythm Pain Sedation Rate (ipm) (%) (mmHg) (mmHg) Status Level (bpm) 9:30:31 49 12 98 10.4 96/65(76) NSR 0 (11) 10(A) , No pain 9:34:34 50 13 98 22.4 94/60(79) NSR 0 (11) 10(A) , No pain 9:38:36 51 14 98 39.7 105/61(69) NSR 0 (11) 10(A) , No pain 9:42:44 51 14 97 38.9 97/56(83) NSR 0 (11) 10(A) , No pain 9:46:50 51 19 98 38.2 87/54(77) NSR 0 (11) 10(A) , No pain 9:50:53 53 26 97 38.2 102/50(80) NSR 0 (11) 9(A) , No pain 9:55:01 58 17 93 41.9 101/57(85) NSR 0 (11) 9(A) , No pain 9:59:05 60 19 95 44.9 95/61(71) NSR 0 (11) 10(A) , No pain Medications Time Medication Route Dose Verified Delivered Reason Notes E ffectiveness by by 9:28:59 Oxygen NC 2 l/min Reganlisa Shoemakerie used for Danielle Pena RN procedure 9:29:08 Lidocaine 2% added 20ml Regan Spears for local to vial Danielle Santos MD anesthetic field 9:29:15 Heparin Flush added 2 bags Regan Spears used for Bag to Danielle Santos MD procedure (1000units/500ml field NS) 9:29:24 0.9% NaCl I.V. 100 Regan Buffie Per ml/hr Danielle Pena RN physician 9:45:50 Versed I.V. 1 mg Regan Wagner for sedation Danielle Pena RN 9:45:55 Fentanyl I.V. 50 mcg Regan Wagner for sedation Danielle Pena RN 9:50:59 Versed I.V. 1 mg Regan Wagner for sedation Danielle Pena RN 9:51:03 Fentanyl I.V. 50 mcg Regan Wagner for sedation Danielle Pena RN 9:51:06 Radial Cocktail I.A. 1 Regan Spears for (Verapomil syringe Danielle Santos MD vasodilation 2mg/Nitro 400mcg/Heparin 1500units) 9:53:40 Versed I.V. 1 mg Regan Wagner for sedation Danielle Pena RN 9:53:44 Fentanyl I.V. 50 mcg Regan Wagner for sedation Danielle Pena RN Procedure Log Time Note 9:01:03 Time tracking: Regular hours (M-F 7:00 - 5:00) 9:01:07 Plan of Care:Hemodynamics will remain stable., Cardiac rhythm will remain stable., Comfort level will be maintained., Respiratory function will remain adequate., Patient/ family verbilizes understanding of procedure., Procedure tolerated without complication., Recovers from procedure without complications.. 9:01:23 H&P Date Dictated: 01/11/2018 Within 30 days and on chart., H&P Addendum completed by physician on day of procedure. (MUST COMPLETE FOR ALL OUTPATIENTS). 9:01:50 Patient allergic to Other allergyTETANUS VACCINES AND TOXOID 9:02:41 Lab Result : BUN 17 mg/dl 9:02:41 Lab Result : Hemoglobin 15.1 g/dl 9::41 Lab Result : Creatinine 1.5 mg/dl 9::45 Brigette Acevedo RT(R) sent for patient. Start room use. 9::47 Patient received from Pre/Post Procedure Room to CCL 2 Alert and oriented. Tansferred to table in Supine position. 9:06:48 Warm blankets applied, and cy hugger turned on for patient comfort. 9::48 Correct patient and procedure confirmed by team. 9::50 Signed procedure consent form obtained from patient. 9::51 ECG and BP/O2 sat monitors applied to patient. 9:10:16 Snore? No 9:10:18 Sleep apnea? No 9:10:26 Dentures? No ? 9:28:59 Oxygen 2 l/min NC was administered by Kristy Pena RN; used for procedure; 9:29:08 Lidocaine 2% 20ml vial added to field was administered by Regan Santos MD; for local anesthetic; 9:29:15 Heparin Flush Bag (1000units/500ml NS) 2 bags added to field was administered by Regan Santos MD; used for procedure; 9:29:17 Vital chart was started 9:29:18 Baseline sample Acquired. 9:29:24 0.9% NaCl 100 ml/hr I.V. was administered by Kristy Pena RN; Per physician; 9:: Baseline sample Acquired. 9:29:36 Rhythm: sinus rhythm 9:29:38 Full Disclosure recording started 9:29:39 Pre-procedure instructions explained to patient. 9:29:42 Family in patients room. 9::44 Patient NPO since Midnight. 9::47 Is the patient allergic to Iodine/contrast media? No. 9::49 Was the patient premedicated? Yes 9:29:50 Is patient on blood thinner?Yes 9:29:53 ACC The patient was administered the following blood thiners within the last 24 hours: ACCPlavix 9:29:56 Patient diabetic? No. 9:30:13 IV patent on arrival in left forearm with 0.9% NaCl at KVO. 9:30:19 Lab results completed and on chart. 9:30:24 Right Radial & Right Groin area was prepped with chlora-prep and draped in sterile fashion 9:30:26 Alarms reviewed by R. N. 9:30:26 Sharps counted by scrub and verified by R.N. 9:30:28 Physician paged 9:30:36 Use device set Femoral Dx 9:30:38 ACIST Syringe (38759) opened to sterile field. 9:30:39 Bag Decanter (2001S) opened to sterile field. 9:30:41 Medline Cath Pack ([id number]) opened to sterile field. 9:30:42 DIAGNOSTIC WIRE .035 260cm J wire (545153) opened to sterile field. 9:30:46 ACIST Hand Control (12638) opened to sterile field. 9:30:47 ACIST Manifold (08089) opened to sterile field. 9:30:49 Tegaderm 4 x 4 (1626W) opened to sterile field. 9:31:41 SHEATH 6Fr Prelude Radial ([id number]) opened to sterile field. 9:34:59 Zero performed for pressure channel P1 9:44:29 Physician arrived 9:44:30 --------ALL STOP TIME OUT------ 9:44:30 Final Timeout: patient, procedure, and site verified with staff and physician. All members of the team are in agreement. 9:44:35 Right Radial & Right Groin site verified by team. 9:44:39 Physical assessment completed. ASA score P 2 - A patient with mild systemic disease as per Regan Santos MD. 9:44:43 Sedation plan: IV Moderate Sedation Medication:Versed, Fentanyl 9:45:50 Versed 1 mg I.V. was administered by Kristy Pena RN; for sedation; 9:45:55 Fentanyl 50 mcg I.V. was administered by Kristy Pena RN; for sedation; 9:48:27 Procedure started. 9:48:33 Local anesthetic to right radial artery with Lidocaine 2% by Regan Santos MD.INITIAL ACCESS ONLY 9:49:57 A 6 Fr Short sheath was inserted into the Right Radial artery 9:50:10 J wire advanced. 9:50:27 A DIAGNOSTIC [place] 110cm 5 Fr catheter ([id number]) was advanced over the wire and used for Procedure. 9:50:59 Versed 1 mg I.V. was administered by Kristy Pena RN; for sedation; 9:51:03 Fentanyl 50 mcg I.V. was administered by Kristy Pena RN; for sedation; 9:51:06 Radial Cocktail (Verapomil 2mg/Nitro 400mcg/Heparin 1500units) 1 syringe I.A. was administered by Regan Santos MD; for vasodilation; 9:51:35 LV angiography performed. 9:52:15 EF : 60 % 9:52:27 RCA angiography performed. 9:53:28 Catheter removed. 9:53:40 Versed 1 mg I.V. was administered by Kristy Pena RN; for sedation; 9:53:44 Fentanyl 50 mcg I.V. was administered by Kristy Pena RN; for sedation; 9:53:46 GUIDE 6FR XBLAD 3.5 catheter ([id number]) opened to sterile field. 9:53:56 LCA angiography performed. 9:56:51 Catheter removed. 9:57:26 Sheath removed intact; hemostasis achieved with Mechanical Compression to the Right Radial artery. 9:57:29 Procedure ended.(Physican Out) 9:57:46 Fluoroscopy time 02.90 minutes. 9:57:52 Fluoroscopy dose: 588 mGy 9:57:52 Flurop Dose total: 588 9:57:56 Contrast amount:Isovue 300 53ml. 9:57:57 Sharps counted by scrub and verified by R.N. 9:58:00 TR band inflated with 13cc of air. 9:58:01 Insertion/operative site no bleeding no hematoma. 9:58:03 Post Procedure Pulses reassessed and unchanged 9:58:07 Post-procedure physical assessment completed. ASA score P 2 - A patient with mild systemic disease as per Regan Santos MD. 9:58:10 Post procedure rhythm: unchanged. 9:58:13 Estimated blood loss: 10 ml 9:58:15 Post procedure instruction explained to patient.Patient verbalizes understanding. 9:58:31 Procedure and supply charges have been captured, reviewed, submitted and are correct. 9:58:58 Procedure Complication : No complications 9:59:03 Vital chart was stopped 9:59:13 See physician's report for complete and final results. 9:59:21 Report given to Pre/Post Procedure Room. 9:59:25 Patient transfered to Pre/Post Procedure Room with Stretcher. 9:59:28 Procedure ended. 9:59:28 Full Disclosure recording stopped 9:59:32 End room use (Document Last) Device Usage Item Name Manufacture Quantity Catalog Number Hospital Part Current M inimal Lot# / Charge Number Stock Stock Serial# Code ACIST Syringe Acist 1 73413 102522 639817 080942 2 0 (13492) [employer] Bag Decanter Microtek 1 2001S 334464 68809 785100 5 (2001S) Medical Inc. Medline Cath Cardinal 1 [id number] 492823 44050 553981 5 Pack Health ([id number]) DIAGNOSTIC WIRE [facility] 1 100965 881764 172842 781900 3 0 .035 260cm J wire (592192) ACIST Hand Acist 1 19453 479359 120203 170049 5 Control (28394) [employer] ACIST Manifold Acist 1 63946 573769 472583 027467 5 (09442) [employer] Inc Tegaderm 4 x 4 3M 1 1626W 541154 725200 210842 5 (1626W) SHEATH 6Fr Merit 1 [id number] 733523 542152 438894 5 Prelude Radial Medical ([id number]) DIAGNOSTIC Terumo 1 40-4779 375813 003941 118566 5 [place] 110cm 5 Fr catheter (870886) GUIDE 6FR XBLAD Cardinal 1 [id number] 098320 423214 356988 1 0 3.5 catheter [employer] ([id number]) Signature Audit [place] Stage Time Signature Unsigned Intra-Procedure 01/14/2018 Brigette Acevedo 10:00:30 AM RT(R) Signatures Monitor : Brigette Acevedo Signature : RT Date : Time : [facility] [address] [place] [address]
--- NOTE | ~2018-01-14 | OP ---
PATIENT NAME: IGOR HERNANDEZ MEDICAL RECORD: [id number] :43 LOCATION:[facility] ADMISSION DATE: SURGEON: SHAHNAZ MOLINA MD DATE OF OPERATION: 01/14/2018 PROCEDURES: 1. Left heart catheterization. 2. Selective coronary angiography. 3. Left ventriculogram. INDICATION: Angina and coronary artery disease. PROCEDURE IN DETAIL: After informed consent was obtained and after a detailed description of risks, benefits as well as alternative therapies, the patient elected to proceed with angiogram and heart catheterization. The right radial area was prepped and draped in normal sterile fashion. Right radial artery was cannulated via modified Seldinger technique with placement of 5-Khmer sheath. All catheters exchanged through this sheath. FINDINGS: The left ventriculogram was performed in standard 30-degree SKAGGS view, reveals good cardiac wall motion throughout all segments. Overall ejection fraction estimated 60%. SELECTIVE CORONARY ANGIOGRAPHY: 1. Left main is with no significant angiographic disease. 2. Left anterior descending has previously placed stents, these are widely patent with no significant restenosis. No disease elsewise at the LAD or its branches. 3. The left circumflex has previously placed stents. These are widely patent with no significant restenosis. No disease elsewise throughout the circumflex or its branches. 4. The right coronary artery has previously placed stents. These are widely patent with no significant restenosis. No disease elsewise of the RCA or its branches. OVERALL IMPRESSION: Wide patency of all the previously placed stents with no significant restenosis. No disease elsewise. Normal LV function. Continue medical management of the coronary artery disease and cardiac risk factors. TRANSINT:[id number] Voice Confirmation ID: [id number] DOCUMENT ID: [id number] SHAHNAZ MOLINA MD at 1848 CC: [id number] DICTATION DATE: 01/14/18 1001 PLAYGROUND AIDE: 01/14/18 1415 DEP CLI 01/14/18 [facility] [address] [place] [address]
[2018-01-14 07:17] VITALS: BP 141/75; Ht 177.8 cm; Wt 90.9 kg
[2018-01-14 07:36] LABS: BASOPHILS 0.2 % (0-2); EOSINOPHILS 4.8 % (0-7); HEMATOCRIT 43.6 % (42.0-54.0); HEMOGLOBIN 15.1 g/dL (13.5-17.5); LYMPHOCYTES 27.8 % (15-50); MCH 30.6 pg (26.0-34.0); MCHC 34.6 g/dL (31.0-37.0); MCV 88.4 fL (80.0-100.0); MEAN PLATELET VOLUME 9.1 fL (7.4-10.4); MONOCYTES 10.1 % (2-11); NEUTROPHILS 57.1 % (40-80); PLATELET COUNT 269 10x3/uL (130-400); RBC 4.93 10x6/uL (4.20-6.10); RDW 12.6 % (11.5-14.5); WBC 6.5 10x3/uL (4.8-10.8)
[2018-01-14 07:41] LABS: ANION GAP 10.4 mmol/L (8-16); CALCIUM 9.4 mg/dL (8.5-10.1); CARBON DIOXIDE 30.1 mmol/L (21.0-32.0); CREATININE - SERUM 1.5 mg/dL (0.6-1.3); POTASSIUM - SERUM 3.5 mmol/L (3.5-5.1)
== END | disposition home or self-care (01) ==
LOC: D.CATH 07:00
PROVIDERS: Internal Medicine Interventional Cardiology
DX: I25.119 Atherosclerotic heart disease of native coronary artery with unspecified angina pectoris (principal); I10 Essential (primary) hypertension; Z01.812 Encounter for preprocedural laboratory examination

== ENCOUNTER → 2018-05-26 08:50 | Outpatient (CLI) | payer MEDICARE, BC ==
[2018-01-14 07:17] VITALS: BMI 28.7
== END | disposition home or self-care (01) ==
LOC: D.CT 08:50
DX: R51 Headache (principal)

== ENCOUNTER 2018-09-09 12:30 | Observation (INO) | payer MEDICARE, BC ==
[~2018-09-09] VITALS: Ht 177.8 cm; Wt 93.2 kg
--- NOTE | ~2018-09-09 | OP ---
PATIENT NAME: IGOR HERNANDEZ MEDICAL RECORD: [id number] :43 LOCATION:[facility] ADMISSION DATE:09/09/18 SURGEON: SHAHNAZ MOLINA MD DATE OF OPERATION: 09/09/2018 PROCEDURES: 1. PTCA stent RCA. 2. Intravascular ultrasound RCA. 3. Left heart catheterization. 4. Selective coronary angiography. 5. Left ventriculogram. PROCEDURE IN DETAIL: After informed consent was obtained and after a detailed description of the risks, benefits as well as alternative therapies, the patient elected to proceed with angiogram and angioplasty. The right radial area was prepped and draped in normal sterile fashion. Right radial artery was cannulated via modified Seldinger technique with placement of 6-Sudanese sheath. All catheters exchanged through this sheath. FINDINGS: The left ventriculogram was performed in the standard 30-degree SKAGGS view reveals good cardiac wall motions throughout all segments. Overall ejection fraction estimated 60%. SELECTIVE CORONARY ANGIOGRAPHY: 1. Left main is with no significant angiographic disease. 2. Left anterior descending has previously placed stents, these are widely patent with no significant restenosis. No disease elsewise at the LAD or its branches. 3. Left circumflex has previously placed stents, these are widely patent with no significant restenosis. No disease elsewise of the circumflex or its branches. 4. The right coronary has previously placed stents. There is 80% in-stent restenosis in the mid vessel confirmed by intravascular ultrasound. PTCA STENT OF THE RIGHT CORONARY: The stent used was a 3.5 x 18-mm Wyatt. Result was 0% residual stenosis. OVERALL IMPRESSION: Successful percutaneous transluminal coronary angioplasty stent of the right coronary artery going from 80% in-stent restenosis to 0% residual. TRANSINT:[id number] Voice Confirmation ID: [id number] DOCUMENT ID: [id number] SHAHNAZ MOLINA MD CC: [id number] DICTATION DATE: 09/09/18 1539 UNIT COORDINATOR: 09/09/18 2144 DIS IN 09/09/18 [place] [id number] [place] [id number]
--- NOTE | ~2018-09-09 | HEMODYNAMI ---
PATIENT:IGOR HERNANDEZ MEDICAL RECORD: [id number] : 43 LOCATION:[facility]- [facility]# [id number] ADMISSION DATE: 09/09/18 Generatedon:09/09/201815:40 Patient name: IGOR HERNANDEZ Patient #: [id number] : 1945 Date of study: 09/09/2018 Page: Of Hemodynamic Procedure Report Patient Data Patient Demographics Procedure consent was obtained First Name: IGOR Gender: Male Last Name: DAVID : 1945 [facility] Initial: OTILIA Age: 72 year(s) Patient #: [id number] Race: SSN: [id number] Additional ID: [id number] Contact details Address: [address] [address] State: [place] City: [place] Zip code: [address] Past Medical History Allergies Allergen Reaction Date Comments Reported Other allergy 07/10/2016 Tetanus Other allergy 01/14/2018 TETANUS VACCINES AND TOXOID Admission Admission Data Admission Date: 09/09/2018 Admission Time: 14:47 Room #: D.T01 Lab Results Lab Result Date: 09/09/2018 Lab Result Time: 0:00 Biochemistry Name Units Result Min Max BUN mg/dl 19 --(----)*- 7 18 Creatinine mg/dl 1.6 --(----)-* 0.6 1.3 CBC Name Units Result Min Max Hemoglobin g/dl 14.6 --(-*--)-- 13.5 17.5 Procedure Procedure Types Cath Procedure Diagnostic Procedure LHC LH w/Coronaries FFR/IVUS Intra-Coronary IVUS Initial Sedation Charges Moderate Sedation up to 15 minutes PCI Procedure Coronary Stent Coronary Stent Initial Procedure Description Procedure Date Procedure Date: 09/09/2018 Procedure Start Time: 15:23 Procedure End Time: 15:39 Procedure Staff Name Function Regan Santos MD Performing Physician Marlen Castillo RT Monitor Brigette Acevedo RT Scrub Martha Faulkner RN Nurse Cliff Avilez RN Coal Yard Supervisor Procedure Data Cath Procedure Fluoroscopy Diagnostic fluoroscopy Total fluoroscopy Time: 4.8 time: 4.8 min min Diagnostic fluoroscopy Total fluoroscopy dose: 885 dose: 885 mGy mGy Contrast Material Contrast Material Type Amount (ml) Isovue 300 104 Entry Location Entry Primary Successful Side Size Upsize Upsize Entry Closure Dee ccessful Closure Location (Fr) 1 (Fr) 2 (Fr) Remarks Device Remarks Radial Right 6 Fr Mechanical artery Short Compression Estimated blood loss: 10 ml Diagnostic catheters Device Type Used For End Catheter Placement DIAGNOSTIC [place] 110cm 5 Procedure Fr catheter ([id number]) Procedure Complications No complications Procedure Medications Medication Administration Route Dosage 0.9% NaCl I.V. 100 ml/hr Oxygen etCO2 Nasal cannula 2 l/min Lidocaine 2% added to field 20 Heparin Flush Bag added to field 2 bags (1000units/500ml NS) Radial Cocktail added to field 1 syringe (Verapomil 2mg/Nitro 400mcg/Heparin 1500units) Versed I.V. 2 mg Fentanyl I.V. 50 mcg Versed I.V. 1 mg Fentanyl I.V. 25 mcg Heparin Bolus I.V. 4000 units Hemodynamics Rest Pre Cath Intra NCS Post Cath Vital Signs Time Heart Resp SPO2 etCO2 NIBP (mmHg) Rhythm Pain Sedation Rate (ipm) (%) (mmHg) Status Level (bpm) 15:03:33 59 12 99 32.8 187/97(168) NSR 0 (11) 10(A) , No pain 15:08:08 57 13 100 22.3 193/97(171) NSR 0 (11) 10(A) , No pain 15:12:32 53 17 99 35.8 154/87(133) NSR 0 (11) 10(A) , No pain 15:17:41 54 14 99 32.8 136/77(100) NSR 0 (11) 10(A) , No pain 15:22:02 55 15 99 28.2 137/72(118) NSR 0 (11) 10(A) , No pain 15:26:20 58 14 98 38.8 106/66(76) NSR 0 (11) 10(A) , No pain 15:30:31 60 16 97 41 110/66(82) NSR 0 (11) 9(A) , No pain 15:34:48 57 34 98 40.2 110/61(80) NSR 0 (11) 9(A) , No pain 15:38:59 56 24 98 40.3 114/70(89) NSR 0 (11) 9(A) , No pain Medications Time Medication Route Dose Verified Delivered Reason Not es Effectiveness by by 15:07:09 0.9% NaCl I.V. 100 Regan Martha used for ml/hr Danielle Faulkner solar crew member 15:07:24 Oxygen etCO2 2 l/min Regan Martha used for Nasal Danielle Faulkner procedure cannula RN 15:07:29 Lidocaine 2% added 20ml Regan Regan for local to vial Danielle Santos MD anesthetic field 15:07:33 Heparin Flush added 2 bags Regan Regan used for Bag to Danielle Santos MD procedure (1000units/500ml field NS) 15:07:38 Radial Cocktail added 1 Regan Regan used for (Verapomil to syringe Danielle Santos MD procedure 2mg/Nitro field 400mcg/Heparin 1500units) 15:22:23 Versed I.V. 2 mg Regan Martha for sedation Danielle Faulkner RN 15:22:29 Fentanyl I.V. 50 mcg Regan Martha for sedation Danielle Faulkner RN 15:28:14 Versed I.V. 1 mg Regan Martha for sedation Danielle Faulkner RN 15:28:19 Fentanyl I.V. 25 mcg Regan Martha for sedation Danielle Faulkner RN 15:34:19 Heparin Bolus I.V. 4000 Regan Martha for barry ified units Danielle Faulkner anticoagulation with Dr. ASIF Santos Procedure Log Time Note 14:50:01 Cliff Avilez RN sent for patient. Start room use. 14:57:09 Time tracking: Regular hours (M-F 7:00 - 5:00) 14:57:13 Plan of Care:Hemodynamics will remain stable., Cardiac rhythm will remain stable., Comfort level will be maintained., Respiratory function will remain adequate., Patient/ family verbilizes understanding of procedure., Procedure tolerated without complication., Recovers from procedure without complications.. 14:57:15 Diagnostic Cath status Elective 14:57:16 Signed procedure consent form obtained from patient. 14:57:28 H&P Date Dictated: 09/09/2018 ER History on chart.. 14:57:49 Lab results completed and on chart. 15:02:13 Vital chart was started 15:07:09 0.9% NaCl 100 ml/hr I.V. was administered by Martha Faulkner RN; used for procedure; 15:07:24 Oxygen 2 l/min etCO2 Nasal cannula was administered by Martha Faulkner RN; used for procedure; 15:07:29 Lidocaine 2% 20ml vial added to field was administered by Regan Santos MD; for local anesthetic; 15:07:33 Heparin Flush Bag (1000units/500ml NS) 2 bags added to field was administered by Regan Santos MD; used for procedure; 15:07:38 Radial Cocktail (Verapomil 2mg/Nitro 400mcg/Heparin 1500units) 1 syringe added to field was administered by Regan Santos MD; used for procedure; 15:08:29 Rhythm: sinus bradycardia 15:08:30 Full Disclosure recording started 15:08:31 Pre-procedure instructions explained to patient. 15:08:31 Pre-op teaching completed and patient verbalized understanding. 15:08:33 Family in waiting room. 15:08:44 Is patient on blood thinner?Yes 15:08:46 ACC The patient was administered the following blood thiners within the last 24 hours: ACCPlavix 15:08:48 Patient diabetic? No. 15:08:51 Previous problem with sedation/anesthesia? No ? 15:08:53 Snore? No 15:08:54 Sleep apnea? No 15:08:55 Deviated septum? No 15:08:56 Opens mouth fully? Yes 15:09:02 Sticks out tongue? Yes 15:09:03 Airway obstruction? No ? 15:09:06 Dentures? No ? 15:09:09 Modified Blair's test Ulnar < 7 seconds 15:09:11 Patient pain scale 0/10 ?. 15:09:19 IV patent on arrival in right antecubital with 0.9% NaCl at [facility]. 15:09:51 Lab Result : BUN 19 mg/dl 15:09:51 Lab Result : Creatinine 1.6 mg/dl 15:09:51 Lab Result : Hemoglobin 14.6 g/dl 15:09:55 Right Radial & Right Groin area was prepped with chlora-prep and draped in sterile fashion 15:09:56 Alarms reviewed by R. N. 15:09:57 Sharps counted by scrub and verified by R.N. 15:10:00 Use device set Radial Dx or PCI 15:10:01 ACIST Syringe (04164) opened to sterile field. 15:10:02 Bag Decanter (2002S) opened to sterile field. 15:10:02 ACIST Hand Control (22322) opened to sterile field. 15:10:03 ACIST Manifold (87384) opened to sterile field. 15:10:04 Tegaderm 4 x 4 (1626W) opened to sterile field. 15:10:05 Medline Cath Pack ([id number]) opened to sterile field. 15:10:06 DIAGNOSTIC WIRE .035 260cm J wire (850485) opened to sterile field. 15:10:07 SHEATH 6FR Slender (57-3860) opened to sterile field. 15:16:36 Zero performed for pressure channel P1 15:21:16 --------ALL STOP TIME OUT------ 15:21:16 Final Timeout: patient, procedure, and site verified with staff and physician. All members of the team are in agreement. 15:21:18 Right Radial & Right Groin site verified by team. 15:21:21 Physical assessment completed. ASA score P 2 - A patient with mild systemic disease as per Regan Santos MD. 15:21:24 Sedation plan: IV Moderate Sedation Medication:Versed, Fentanyl 15::23 Versed 2 mg I.V. was administered by Martha Faulkner RN; for sedation; 15::29 Fentanyl 50 mcg I.V. was administered by Martha Faulkner RN; for sedation; 15:23:16 Procedure started. 15:23:30 Local anesthetic to right radial artery with Lidocaine 2% by Regan Santos MD.INITIAL ACCESS ONLY 15:23:45 A 6 Fr Short sheath was inserted into the Right Radial artery 15:24:26 A DIAGNOSTIC [place] 110cm 5 Fr catheter ([id number]) was advanced over the wire and used for Procedure. 15:25:03 LV gram done using SKAGGS 15:25:05 Injector settings: Ml/sec: 7, Volume: 15, 15:25:43 EF : 55 % 15:26:32 RCA angiography performed. 15::33 Catheter removed. 15::43 GUIDE 6FR EBU 3.0 catheter (PR5MJJ26) opened to sterile field. 15:27:33 6 Fr EBU 3 guide catheter was inserted over the wire 15:28:14 Versed 1 mg I.V. was administered by Martha Faulkner RN; for sedation; 15:28:19 Fentanyl 25 mcg I.V. was administered by Martha Faulkner RN; for sedation; 15:29:10 LCA angiography performed. 15:29:20 Guide catheter removed. 15:29:43 GUIDE 6FR AR 2.0 catheter (ST6CC23) opened to sterile field. 15:29:54 INFLATOR Merit BasixCompak (QX8644) opened to sterile field. 15:29:55 CHOICE PT Extra Support 182cm wire ([id number]) opened to sterile field. 15:29:55 [place] Eag[place] IVUS Catheter (36733Y) opened to sterile field. 15:30:46 6 Fr AR 2 guide catheter was inserted over the wire 15:31:35 CHOICE ES 182 wire advanced. 15:31:47 Wire advanced across lesion. 15:34:10 IVUS catheter advanced over wire. 15:34:13 IVUS pass to RCA lesion performed. 15:34:14 IVUS catheter removed over wire. 15:34:19 Heparin Bolus 4000 units I.V. was administered by Martha Faulkner RN; for anticoagulation; verified with Dr. Santos 15:34:59 Place stent Inflation Number: 1 A TIMMY RX 3.5 x 18 stent ([id number]) was prepped and advanced across the Mid RCA. The stent was deployed at 17 ESTRELLA for 0:10 (min:sec). 15:35:12 TR BAND Standard ([id number]) opened to sterile field. 15:35:19 Stent catheter was removed intact over wire. 15:35:20 Wire removed. 15:35:20 Guide catheter removed. 15:35:46 Procedure ended.(Physican Out) 15:36:04 Sheath removed intact; hemostasis achieved with Mechanical Compression to the Right Radial artery. 15:36:27 Fluoroscopy time 04.80 minutes. 15:36:31 Flurop Dose total: 885 15:36:31 Fluoroscopy dose: 885 mGy 15:36:34 Contrast amount:Isovue 300 104ml. 15:36:35 Sharps counted by scrub and verified by R.N. 15:36:37 TR band inflated with 10cc of air. 15:38:44 Post-procedure physical assessment completed. ASA score P 2 - A patient with mild systemic disease as per Regan Santos MD. 15:38:49 Post procedure rhythm: unchanged. 15:38:51 Estimated blood loss: 10 ml 15:38:53 Post procedure instruction explained to patient.Patient verbalizes understanding. 15:38:53 Patient needs reinforcement of post procedure teaching. 15:39:15 Procedure type changed to Cath procedure, Diagnostic procedure, LHC, LHC w/Coronaries, FFR/IVUS, Intra-Coronary IVUS Initial, Sedation Charges, Moderate Sedation up to 15 minutes, PCI procedure, Coronary Stent, Coronary Stent Initial 15:39:42 Procedure and supply charges have been captured, reviewed, submitted and are correct. 15:39:44 Procedure Complication : No complications 15:39:46 Vital chart was stopped 15:39:46 See physician's report for complete and final results. 15:39:49 Report given to Pre/Post Procedure Room. 15:39:51 Patient transfered to Pre/Post Procedure Room with Bed. 15:39:53 Procedure ended. 15:39:53 Full Disclosure recording stopped 15:39:55 End room use (Document Last) Intervention Summary Intervention Notes Time ActionType Lesion and Equipment Used Action# Pressure Duration Attributes 15:34:59 Place stent Mid RCA TIMMY RX 3.5 x 1 17 00:10 18 stent ([id number]) Device Usage Item Name Manufacture Quantity Catalog Number Hospital Part Current M inimal Lot# / Charge Number Stock Stock Serial# Code ACIST Syringe Acist 1 85290 956201 633957 138903 2 0 (56771) Medical Systems Inc Bag Decanter Microtek 1 2001S 389897 35421 558154 5 () Medical Inc. ACIST Hand Acist 1 67889 164722 136749 425180 5 Control Medical (08162) Systems Inc ACIST Manifold Acist 1 83173 798935 729331 261104 5 (19618) Medical Systems Inc Tegaderm 4 x 4 3M 1 1626W 369971 814321 911390 5 (1626W) Medline Cath Medline 1 [id number] 000721 15506 996680 5 Pack ([id number]) DIAGNOSTIC St Jose Daniel 1 226529 126173 223109 819838 3 0 WIRE .035 260cm J wire (503489) SHEATH 6FR Terumo 1 [id number] 179423 170106 824521 5 Slender (80-1060) DIAGNOSTIC Terumo 1 40-5013 087647 292455 641309 5 [place] 110cm 5 Fr catheter (988309) GUIDE 6FR EBU Medtronic 1 [id number] 400818 28006 707208 0 3.0 catheter ([id number]) GUIDE 6FR AR Medtronic 1 [id number] 905510 56354 810142 1 2.0 catheter (RE1DY86) INFLATOR Merit Merit 1 FV9557 093715 092017 138372 1 5 [facility] (FW8690[facility] CHOICE PT Draper 1 [id number] 586041 167073 600688 5 Extra Support Scientific 182cm wire ([id number]) [place] 1 51118Q 236215 019073 558683 8 [place] IVUS Catheter (25591M) TIMMY RX 3.5 x Medtronic 1 [id number] 046728 4730747 369086 5 [id number] 18 stent ([id number]) TR BAND Terumo 1 [id number] 097707 873516 730233 4 0 Standard ([id number]) Signature Audit Bronson Stage Time Signature Unsigned Intra-Procedure 09/09/2018 Marlen Castillo 3:40:39 PM RT(R) Signatures Monitor : Marlen Castillo Signature : RT Date : Time : [facility] [address] [place] [address]
--- NOTE | ~2018-09-09 | CN ---
PATIENT NAME:IGOR HERNANDEZ MEDICAL RECORD: [id number] : 43 LOCATION:RENECL06 ADMIT DATE: 09/09/18 ACCOUNT: [id number] CONSULTING PHYSICIAN: SHAHNAZ MOLINA MD REFERRING PHYSICIAN: SHAHNAZ MOLINA MD DATE OF CONSULTATION: 09/09/2018 DIAGNOSES: 1. Unstable angina. 2. Coronary artery disease. 3. Multivessel PTCA stent. 4. Hypertension. 5. Hyperlipidemia. HISTORY OF PRESENT ILLNESS: Mr. Hernandez presents with unstable anginal symptomatology. He has a history of coronary artery disease, previous multivessel PTCA stent. PHYSICAL EXAMINATION: GENERAL APPEARANCE: Well-nourished, well-developed, appears stated age. Level of distress, comfortable. PSYCHIATRIC: Mental status, alert, normal affect. Orientation, oriented to time, place and person. EYES: Lids and conjunctiva, noninjected. No discharge, no pallor. ENT: Lips, teeth, gums, normal dentition. Oropharynx, no cyanosis, no pallor. NECK: Carotid arteries, bilateral normal upstroke, no bruits, no thrills. JUGULAR VEINS: No jugular venous pressure or distention. CERVICAL LYMPH NODES: Nontender, nonenlarged. THYROID: Not enlarged. Nontender. No nodules. LUNGS: Respiratory effort, unlabored. CHEST: Normal curvature. No thoracic deformity. No chest wall tenderness. Percussion, resonant. Auscultation, clear. No wheezes, no rales, no rhonchi. CARDIOVASCULAR: Precordial exam, nondisplaced. No heaves or pericardial thrills. Rate and rhythm, regular. Heart sounds, normal S1, normal S2. No S3, no gallop, no rub. Systolic murmur, not heard. Diastolic murmur, not heard. EXTREMITIES: No cyanosis, no edema. Peripheral pulses, full and equal in all extremities, except as noted. No bruits appreciated. ABDOMEN: Soft, nondistended. Normal aorta. No bruit. Nontender. No masses. Liver, nontender, no hepatomegaly. Spleen, nontender, no splenomegaly. MUSCULOSKELETAL: No joint tenderness. No joint swelling. No erythema. NEUROLOGICAL: Normal gait, normal strength, normal tone. SKIN: Warm and dry. REVIEW OF SYSTEMS: The patient reports easy bruising but reports no swollen glands. The patient reports no fever, no night sweats, no significant weight gain, no significant weight loss. No significant exercise tolerance. The patient reports no dry eyes, no irritation, no vision change. Patient reports no difficulty hearing and no ear pain. Patient reports no frequent nose bleeds or nose and sinus problems. Patient reports on arm pain on exertion. No shortness of breath while lying down. No history of heart murmur. Patient reports no cough, no wheezing or coughing up blood. Patient reports no abdominal pain, no vomiting. Normal appetite. No diarrhea and not vomiting blood. No nausea and no constipation. Patient reports no incontinence. No difficulty urinating. No hematuria. No increased frequency. Patient reports no muscle aches. No weakness, no arthralgias, no back pain. No swelling of the CONSULT REPORT [id number] BRIGHT,IGOR OTILIA extremities. Patient reports no abnormal mole, no jaundice, no rashes. Reports no loss of consciousness. No weakness and no numbness. No seizures, dizziness, or headaches. The patient reports no depression, no sleep disturbance, feeling safe in a relationship and no alcohol abuse. Patient reports on fatigue. Reports no runny nose or sinus pressure. No itching, no hives, and no frequent sneezing. OVERALL IMPRESSION: Angina in an unstable fashion, most likely he has recurrent hemodynamically significant coronary artery disease. We will proceed with coronary angiography. Further care depends upon the findings of the angiography. TRANSINT:[id number] Voice Confirmation ID: [id number] DOCUMENT ID: [id number] SHAHNAZ MOLINA MD CC: [id number] DICTATION DATE: 09/09/18 153 LENS CLEANER: 09/09/182137 DIS IN 09/09/18 [facility] [address] [id number]
[2018-09-09 12:38] VITALS: Ht 177.8 cm; Wt 93.2 kg
[2018-09-09 13:07] LABS: BASOPHILS 0.2 % (0-2); EOSINOPHILS 2.6 % (0-7); HEMOGLOBIN 14.6 g/dL (13.5-17.5); IMMATURE GRANULOCYTES 0.2 % (0-5); LYMPHOCYTES 29.4 % (15-50); MCHC 34.8 g/dL (31.0-37.0); MCV 86.4 fL (80.0-100.0); MEAN PLATELET VOLUME 9.1 fL (7.4-10.4); MONOCYTES 9.5 % (2-11); NEUTROPHILS 58.1 % (40-80); RBC 4.86 10x6/uL (4.20-6.10); RDW 12.7 % (11.5-14.5); WBC 6.5 10x3/uL (4.8-10.8)
[2018-09-09 13:08] LABS: PLATELET COUNT 206 10x3/uL (130-400)
[2018-09-09 13:20] VITALS: BP 139/67
[2018-09-09 13:25] LABS: ALBUMIN 3.6 g/dL (3.4-5.0); ALKALINE PHOSPHATASE 62 U/L (46-116); ALT (SGPT) 39 U/L (10-68); BILIRUBIN - TOTAL 0.93 mg/dL (0.2-1.3); CALC OSMOLALITY 282 mosm/kg (275-300); CALCIUM 9.1 mg/dL (8.5-10.1); CHLORIDE - SERUM 103 mmol/L (98-107); CREATININE - SERUM 1.6 mg/dL (0.6-1.3); GLUCOSE 106 mg/dL (74-106); POTASSIUM - SERUM 3.4 mmol/L (3.5-5.1); PROTEIN - SERUM 6.5 g/dL (6.4-8.2); SODIUM 141 mmol/L (136-145); UREA NITROGEN 19 mg/dL (7-18); eGFR NON AFRICAN AMERICAN 45 mL/min (90-120)
[2018-09-09 13:37] LABS: CKMB 0.5 U/L (0.0-3.6); CREATINE KINASE 33 UL (21-232); PRO BNP 60 pg/mL (0-125); TROPONIN-I < 0.017 ng/mL (0.000-0.060)
[2018-09-09 14:21] VITALS: BP 141/75
[2018-09-09 15:01] VITALS: BP 170/85
== END 2018-09-09 19:35 | disposition home or self-care (01) ==
LOC: D.ER 12:30 → D.EDHOLD 14:47 → OBSVTIME 14:48 → D.CLR 15:45
PROVIDERS: Family Medicine; ADMIT Internal Medicine Interventional Cardiology
DX: I25.110 Atherosclerotic heart disease of native coronary artery with unstable angina pectoris (principal); Z95.5 Presence of coronary angioplasty implant and graft; T82.855A Stenosis of coronary artery stent, initial encounter; Y83.8 Other surgical procedures as the cause of abnormal reaction of the patient, or of later complication, without mention of misadventure at the time of the procedure; I10 Essential (primary) hypertension; E78.5 Hyperlipidemia, unspecified
CPT/HCPCS: 93458; 92978; C9600

== ENCOUNTER 2018-11-18 08:04 | Outpatient (CLI) | payer MEDICARE, BC ==
[~2018-11-18] VITALS: Ht 177.8 cm; Wt 93.2 kg
--- NOTE | ~2018-11-18 | HEMODYNAMI ---
PATIENT:IGOR HERNANDEZ MEDICAL RECORD: [id number] : 43 LOCATION:[facility] ADMISSION DATE: 11/18/18 Generatedon:11/18/201810:33 Patient name: IGOR HERNANDEZ Patient #: [id number] : 1945 Date of study: 11/18/2018 Page: Of Hemodynamic Procedure Report Patient Data Patient Demographics Procedure consent was obtained First Name: IGOR Gender: Male Last Name: DAVID : 1945 [facility] Initial: OTILIA Age: 73 year(s) Patient #: [id number] Race: SSN: [id number] Additional ID: [id number] Contact details Address: [place] [address] State: [place] City: [place] Zip code: [address] Past Medical History Allergies Allergen Reaction Date Comments Reported Other allergy 07/10/2016 Tetanus Other allergy 01/14/2018 TETANUS VACCINES AND TOXOID Other allergy 11/18/2018 TETANUS AND TOXOID Admission Admission Data Admission Date: 11/18/2018 Admission Time: 8:04 Height (in.): 69.69 BSA: 2.1 (m2) Height (cm.): 177 BMI: 29.68 (kg/m2) Weight (lbs.): 205.03 Weight (kg.): 93 Lab Results Lab Result Date: 11/18/2018 Lab Result Time: 0:00 Biochemistry Name Units Result Min Max BUN mg/dl 14 --(--*-)-- 7 18 Creatinine mg/dl 1.5 --(----)-* 0.6 1.3 CBC Name Units Result Min Max Hemoglobin g/dl 14.4 --(*---)-- 13.5 17.5 Procedure Procedure Types Cath Procedure Diagnostic Procedure LHC LHC w/Coronaries Sedation Charges Moderate Sedation up to 15 minutes PCI Procedure PTCA PTCA Initial Procedure Description Procedure Date Procedure Date: 11/18/2018 Procedure Start Time: 10:15 Procedure End Time: 10:32 Procedure Staff Name Function Regan Santos MD Performing Physician Cliff Avilez RN Trimmer Sawyer Brigette Acevedo RT Monitor Marlen Castillo RT Scrub Kristy Pena RN Nurse Procedure Data Cath Procedure Fluoroscopy Diagnostic fluoroscopy Total fluoroscopy Time: 4.6 time: 4.6 min min Diagnostic fluoroscopy Total fluoroscopy dose: 675 dose: 675 mGy mGy Contrast Material Contrast Material Type Amount (ml) Isovue 300 59 Entry Location Entry Primary Successful Side Size Upsize Upsize Entry Closure Dee ccessful Closure Location (Fr) 1 (Fr) 2 (Fr) Remarks Device Remarks Radial Right 6 Fr Mechanical artery Short Compression Estimated blood loss: 10 ml Diagnostic catheters Device Type Used For End Catheter Placement DIAGNOSTIC [place] 110cm 5 Procedure Fr catheter ([id number]) Procedure Complications No complications Procedure Medications Medication Administration Route Dosage Oxygen etCO2 Nasal cannula 2 l/min Lidocaine 2% added to field 20 Heparin Flush Bag added to field 2 bags (1000units/500ml NS) 0.9% NaCl I.V. 100 ml/hr Radial Cocktail I.A. 1 syringe (Verapomil 2mg/Nitro 400mcg/Heparin 1500units) Versed I.V. 1 mg Fentanyl I.V. 50 mcg Versed I.V. 1 mg Fentanyl I.V. 50 mcg Versed I.V. 1 mg Fentanyl I.V. 50 mcg Heparin Bolus I.V. 4000 units Hemodynamics Rest BSA: 2.1 (m2) HGB: 14.4 (g/dl) O2 Consumption: Estimated: 229.36 (ml/min) O2 Con sumption indexed: Estimated:109.22 (ml/min/m) Heart Rate: 54 (bpm) Snapshots Pre Cath Intra NCS Post Cath Vital Signs Time Heart Resp SPO2 etCO2 NIBP (mmHg) Rhythm Pain Sedation Rate (ipm) (%) (mmHg) Status Level (bpm) 9:58:01 53 19 98 40.1 154/82(132) NSR 0 (11) 10(A) , No pain 10:02:21 58 16 99 41.6 127/70(88) NSR 0 (11) 10(A) , No pain 10:06:37 54 13 97 40 104/67(85) NSR 0 (11) 10(A) , No pain 10:10:45 55 15 98 46.9 107/65(93) NSR 0 (11) 10(A) , No pain 10:14:52 56 11 98 48.4 100/72(84) NSR 0 (11) 9(A) , No pain 10:18:56 63 11 95 48.4 99/70(89) NSR 0 (11) 9(A) , No pain 10:23:00 66 12 94 53 113/72(96) NSR 0 (11) 9(A) , No pain 10:27:06 66 13 95 52.2 93/74(81) NSR 0 (11) 9(A) , No pain 10:31:11 65 13 96 48.5 106/63(100) NSR 0 (11) 10(A) , No pain Medications Time Medication Route Dose Verified Delivered Reason Not es Effectiveness by by 9:55:17 Oxygen etCO2 2 l/min Regan Buffie used for Nasal Danielle Pena RN procedure cannula 9:55:23 Lidocaine 2% added 20ml Reganlisa Spears used for to vial Danielle Santos MD procedure field 9:55:31 Heparin Flush added 2 bags Regan Regan used for Bag to Danielle Santos MD procedure (1000units/500ml field NS) 9:55:39 0.9% NaCl I.V. 100 Regan Buffie Per physician ml/hr Danielle Pena RN 10:04:59 Radial Cocktail I.A. 1 Regan Spears for (Verapomil syringe Danielle Santos MD vasodilation 2mg/Nitro 400mcg/Heparin 1500units) 10:13:54 Versed I.V. 1 mg Regan Buffie for sedation Danielle Pena RN 10:14:02 Fentanyl I.V. 50 mcg Regan Buffie for sedation Danielle Pena RN 10:18:36 Versed I.V. 1 mg Regan Buffie for sedation Danielle Pena RN 10:18:40 Fentanyl I.V. 50 mcg Regan Buffie for sedation Danielle Pena RN 10:23:53 Versed I.V. 1 mg Regan Buffie for sedation Danielle Pena RN 10:23:56 Fentanyl I.V. 50 mcg Regan Buffie for sedation Danielle Pena RN 10:24:04 Heparin Bolus I.V. 4000 Regan Buffie for barry ified units Danielle Pena RN anticoagulation with dr santos Procedure Log Time Note 9:40:59 Cliff Avilez RN sent for patient. Start room use. 9:50:10 Time tracking: Regular hours (M-F 7:00 - 5:00) 9:50:14 Plan of Care:Hemodynamics will remain stable., Cardiac rhythm will remain stable., Comfort level will be maintained., Respiratory function will remain adequate., Patient/ family verbilizes understanding of procedure., Procedure tolerated without complication., Recovers from procedure without complications.. 9:50:16 Signed procedure consent form obtained from patient. 9:50:17 Diagnostic Cath status Elective 9:50:24 H&P Date Dictated: 11/17/2018 Within 30 days and on chart., H&P Addendum completed by physician on day of procedure. (MUST COMPLETE FOR ALL OUTPATIENTS). 9:50:33 Patient received from Pre/Post Procedure Room to CCL 1 Alert and oriented. Tansferred to table in Supine position. 9:50:34 Warm blankets applied, and cy hugger turned on for patient comfort. 9:50:35 Correct patient and procedure confirmed by team. 9:50:35 ECG and BP/O2 sat monitors applied to patient. 9:51:11 Pre-procedure instructions explained to patient. 9:51:11 Pre-op teaching completed and patient verbalized understanding. 9:51:13 Family in patients room. 9:51:14 Patient NPO since Midnight. 9:51:27 Patient allergic to Other allergyTETANUS AND TOXOID 9:51:29 Is patient on blood thinner?Yes 9:51:32 ACC The patient was administered the following blood thiners within the last 24 hours: ACCPlavix 9:51:33 Patient diabetic? No. 9:51:36 Previous problem with sedation/anesthesia? No ? 9:51:37 Snore? No 9:51:38 Sleep apnea? No 9:51:39 Deviated septum? No 9:51:41 Opens mouth fully? Yes 9:51:42 Sticks out tongue? Yes 9:51:44 Airway obstruction? No ? 9:51:46 Dentures? No ? 9:55:17 Oxygen 2 l/min etCO2 Nasal cannula was administered by Buffie Pena RN; used for procedure; 9:55:23 Lidocaine 2% 20ml vial added to field was administered by Regan Santos MD; used for procedure; 9:55:31 Heparin Flush Bag (1000units/500ml NS) 2 bags added to field was administered by Regan Santos MD; used for procedure; 9:55:39 0.9% NaCl 100 ml/hr I.V. was administered by Kristy Pena RN; Per physician; 9:55:42 Vital chart was started 9:56:43 Baseline sample Acquired. 9:56:53 Rhythm: sinus bradycardia 10:00:48 Patient pain scale 0/10 ?. 10:00:58 IV patent on arrival in left forearm with 0.9% NaCl at [facility]. 10:01:03 Lab results completed and on chart. 10:01:24 Right Radial & Right Groin area was prepped with chlora-prep and draped in sterile fashion 10:01:25 Alarms reviewed by R. N. 10:01:26 Sharps counted by scrub and verified by R.N. 10:01:27 Sharps counted by scrub and verified by R.N. 10:01:30 Physician paged 10:03:16 Lab Result : Creatinine 1.5 mg/dl 10:03:16 Lab Result : BUN 14 mg/dl 10:03:16 Lab Result : Hemoglobin 14.4 g/dl 10:03:56 Patient Height : 69.69 inches 10:04:01 Patient Weight : 205.03 lbs 10:04:59 Radial Cocktail (Verapomil 2mg/Nitro 400mcg/Heparin 1500units) 1 syringe I.A. was administered by Regan Santos MD; for vasodilation; 10:05:41 Zero performed for pressure channel P1 10:13:23 Physician arrived 10:13:26 --------ALL STOP TIME OUT------ 10:13:37 Final Timeout: patient, procedure, and site verified with staff and physician. All members of the team are in agreement. 10:13:40 Right Radial & Right Groin site verified by team. 10:13:54 Versed 1 mg I.V. was administered by Kristy Pena RN; for sedation; 10:14:02 Fentanyl 50 mcg I.V. was administered by Kristy Pena RN; for sedation; 10:14:09 Maximum allowable Isovue 300 dose 300ml. Physician notified. (300ml for normal creatinines. For patients with creatinine of 1.7 or higher multiply weight(kg) x 5 divided by creatinine.) 10:14:17 Fire Safety Assessment: A--An alcohol-based skin anteseptic being used preoperatively., C--Open oxygen or nitrous oxide is being used., D--An ESU, laser, or fiber-optic light is being used. 10:14:22 Physical assessment completed. ASA score P 2 - A patient with mild systemic disease as per Regan Santos MD. 10:14:27 Sedation plan: IV Moderate Sedation Medication:Versed, Fentanyl 10:14:50 Use device set Radial Dx or PCI 10:14:52 ACIST Syringe (28887) opened to sterile field. 10:14:53 Medline Cath Pack ([id number]) opened to sterile field. 10:14:53 Bag Decanter (2002S) opened to sterile field. 10:14:54 DIAGNOSTIC WIRE .035 260cm J wire (585160) opened to sterile field. 10:14:54 ACIST Hand Control (10298) opened to sterile field. 10:14:55 ACIST Manifold (39899) opened to sterile field. 10:14:55 Tegaderm 4 x 4 (1626W) opened to sterile field. 10:14:59 MBrace Wrist Support ([id number]) opened to sterile field. 10:15:04 SHEATH 6FR Slender (03-2415) opened to sterile field. 10:15:15 Procedure started. 10:15:15 Full Disclosure recording started 10:15:54 A 6 Fr Short sheath was inserted into the Right Radial artery 10:15:59 Local anesthetic to right radial artery with Lidocaine 2% by Regan Santos MD.INITIAL ACCESS ONLY 10:17:05 A DIAGNOSTIC [place] 110cm 5 Fr catheter (276113) was advanced over the wire and used for Procedure. 10:17:43 LV angiography performed. 10:18:36 Versed 1 mg I.V. was administered by Kristy Pena RN; for sedation; 10:18:40 Fentanyl 50 mcg I.V. was administered by Kristy Pena RN; for sedation; 10:18:55 EF : 60 % 10:19:15 RCA angiography performed. 10:20:16 GUIDE 6FR EBU 3.0 catheter ([id number]) opened to sterile field. 10:20:22 LCA angiography performed. 10:23:37 Proceeding to intervention. 10::39 INFLATOR Merit Caseypak (FS6459) opened to sterile field. 10:23:40 CHOICE PT Extra Support 182cm wire ([id number]) opened to sterile field. 10:23:41 [employer] [place] IVUS Catheter (52879P) opened to sterile field. 10:23:53 Versed 1 mg I.V. was administered by Kristy Pena RN; for sedation; 10:23:55 6 Fr EBU3 guide catheter was inserted over the wire 10:23:56 Fentanyl 50 mcg I.V. was administered by Krisyt Pena RN; for sedation; 10:24:01 choice pt ex wire advanced. 10:24:03 IVUS catheter advanced over wire. 10:24:04 Heparin Bolus 4000 units I.V. was administered by Kristy Pena RN; for anticoagulation; verified with dr santos 10:25:17 IVUS catheter removed over wire. 10::46 Inflate balloon Inflation number: 1 A EUPHORA 3.5 x 20 Balloon ([id number]) was prepped and advanced across the Mid LAD, then inflated to 19 ESTRELLA for 0:10 (min:sec). 10:27:09 Inflation number: 2 The EUPHORA 3.5 x 20 Balloon ([id number]) was reinflated across the Mid LAD, to 21 ESTRELLA for 0:11 (min:sec). 10::44 TR BAND Standard ([id number]) opened to sterile field. 10:27:53 Wire removed. 10::53 Guide catheter removed. 10:29:38 Sheath removed intact; hemostasis achieved with Mechanical Compression to the Right Radial artery. 10:29:41 Procedure ended.(Physican Out) 10::57 Fluoroscopy time 04.60 minutes. 10:30:02 Fluoroscopy dose: 675 mGy 10:30:02 Flurop Dose total: 675 10:30:19 Contrast amount:Isovue 300 59ml. 10:30:24 Sharps counted by scrub and verified by R.N. 10:30:27 TR band inflated with 10cc of air. 10:30:38 Insertion/operative site no bleeding no hematoma. 10:30:48 Post right radial artery:stable 10:30:50 Post Procedure Pulses reassessed and unchanged 10:30:58 Post procedure rhythm: unchanged. 10:31:02 Estimated blood loss: 10 ml 10:31:04 Post procedure instruction explained to patient.Patient verbalizes understanding. 10:31:40 Procedure type changed to Cath procedure, Diagnostic procedure, LHC, LHC w/Coronaries, Sedation Charges, Moderate Sedation up to 15 minutes, PCI procedure, PTCA, PTCA Initial 10:31:58 Procedure and supply charges have been captured, reviewed, submitted and are correct. 10:32:24 Procedure Complication : No complications 10:32:27 Vital chart was stopped 10:32:28 See physician's report for complete and final results. 10:32:30 Report given to Pre/Post Procedure Room. 10:32:33 Patient transfered to Pre/Post Procedure Room with Stretcher. 10:32:35 Procedure ended. 10:32:35 Full Disclosure recording stopped 10:32:37 End room use (Document Last) 10:32:42 ACC-PCI Only Patient was given prescriptions, or instructed by Regan Santos MD to start/continue the following medications upon discharge: Plavix Intervention Summary Intervention Notes Time ActionType Lesion and Equipment Action# Pressure Duration Attributes Used 10:26:46 Inflate Mid LAD EUPHORA 1 19 00:10 balloon 3.5 x 20 Balloon ([id number]) 10:27:09 Reinflate Mid LAD EUPHORA 2 21 00:11 balloon 3.5 x 20 Balloon ([id number]) Device Usage Item Name Manufacture Quantity Catalog Number Hospital Part Current [facility] al Lot# / Charge Number Stock Stock Serial# Code ACIST Acist 1 13398 920819 499492 [id number] 20 Syringe Medical (07175) Systems Inc Medline Medline 1 [id number] 943612 31429 653879 5 Cath Pack ([id number]) Bag Microtek 1 779675 36837 140287 5 Decanter Medical Inc. () DIAGNOSTIC [facility] 1 713697 043578 486929 019163 30 WIRE .035 260cm J wire (967972) ACIST Hand Acist 1 55394 721119 700486 976398 5 Control Medical (02026) Systems Inc ACIST Acist 1 79309 642194 161110 225697 5 Manifold Medical (16501) Systems Inc Tegaderm 4 3M 1 1626W 154346 206817 822906 5 x 4 (1626W) MBrace Advanced 1 140-0250-00 090645 10500 223764 5 Wrist Vascular Support Dynamics ([id number]) SHEATH 6FR Terumo 1 [id number] 091048 794171 365469 5 Slender (80-1060) DIAGNOSTIC Terumo 1 40-5013 831582 746415 234600 5 [place] 110cm 5 Fr catheter (991363) GUIDE 6FR Medtronic 1 [id number] 062243 21489 040762 0 EBU 3.0 catheter ([id number]) INFLATOR Merit 1 EX6849 578564 034923 575836 15 [facility] Medical BasixCompak (KL6024) CHOICE PT [place] 1 [id number] 792173 731198 111298 5 Extra Scientific Support 182cm wire ([id number]) [employer] [place] 1 71563V 994906 561507 255923 8 [place] IVUS Catheter (92228P) EUPHORA 3.5 Medtronic 1 [id number] 739183 215564 804415 5 [id number] x 20 Balloon ([id number]) TR BAND Terumo 1 [id number] 710521 025991 620895 40 Standard ([id number]) Signature Audit Roe Stage Time Signature Unsigned Intra-Procedure 11/18/2018 Brigette Acevedo 10:33:06 AM RT(R) Signatures Monitor : Brigette Acevedo Signature : RT Date : Time : [facility] [address] [place] [address]
[2018-11-18] MEDS ORDERED: AMBIEN10 MG PO (08:23)
[2018-11-18] MEDS ORDERED: ZETIA10 MG PO (08:23)
[2018-11-18 08:37] VITALS: BP 155/79; Ht 177.8 cm; Wt 93.2 kg
[2018-11-18 08:55] LABS: ANION GAP 9.1 mmol/L (8-16); CALCIUM 9.1 mg/dL (8.5-10.1); CARBON DIOXIDE 31.1 mmol/L (21.0-32.0); CREATININE - SERUM 1.5 mg/dL (0.6-1.3); POTASSIUM - SERUM 3.2 mmol/L (3.5-5.1)
[2018-11-18 09:06] LABS: BASOPHILS 0.3 % (0-2); EOSINOPHILS 4.1 % (0-7); HEMATOCRIT 41.3 % (42.0-54.0); HEMOGLOBIN 14.4 g/dL (13.5-17.5); IMMATURE GRANULOCYTES 0.3 % (0-5); LYMPHOCYTES 25.8 % (15-50); MCH 30.1 pg (26.0-34.0); MCHC 34.9 g/dL (31.0-37.0); MCV 86.4 fL (80.0-100.0); MEAN PLATELET VOLUME 9.2 fL (7.4-10.4); MONOCYTES 8.4 % (2-11); NEUTROPHILS 61.1 % (40-80); RBC 4.78 10x6/uL (4.20-6.10); RDW 13.1 % (11.5-14.5); WBC 6.9 10x3/uL (4.8-10.8)
[2018-11-18 09:10] LABS: PLATELET COUNT 285 10x3/uL (130-400)
--- NOTE | 2018-11-18 11:00 | NUR ---
RIGHT WRIST TR BAND IN PLACE. NO BLEEDING/HEMATOMA NOTED. CAP REFILL < 3 SECS. VSS. NO NEEDS AT THIS TIME.
--- NOTE | 2018-11-18 11:30 | NUR ---
PT RESTING COMFORTABLY. VSS. RIGHT RADIAL TR BAND IN PLACE. NO BLEEDING/HEMATOMA NOTED. CALL LIGHT WITHIN REACH. FAMILY AT BEDSIDE.
--- NOTE | 2018-11-18 12:00 | NUR ---
RIGHT WRIST TR BAND IN PLACE. NO BLEEDING/HEMATOMA NOTED. CALL LIGHT WITHIN REACH. FAMILY AT BEDSIDE. RESTING COMFORTABLY.
--- NOTE | 2018-11-18 12:34 | NUR ---
PT MORE ALERT. FAMILIY AT BEDSIDE. SET UP WITH DRINK AND SANDWICH TRAY. VSS. RIGHT WRIST TR BAND IN PLACE. NO BLEEDING/HEMATOMA NOTED.
--- NOTE | 2018-11-18 13:05 | NUR ---
PT TOLERATING FOOD AND DRINK. DENIES NAUSEA. RIGHT RADIAL TR BAND IN PLACE. NO BLEEDING/HEMATOMA NOTED.
--- NOTE | 2018-11-18 13:33 | NUR ---
3cc OF AIR REMOVED FROM TR BAND. NO BLEEDING/HEMATOMA NOTED. VSS. CALL LIGHT WITHIN REACH. NO NEEDS AT THIS TIME.
--- NOTE | 2018-11-18 13:50 | NUR ---
4cc OF AIR REMOVED FROM TR BAND. NO BLEEDING/HEMATOMA NOTED. VSS.
--- NOTE | 2018-11-18 14:04 | NUR ---
LEFT ARM PIV D/C'D WITH CATH TIP INTACT. PT TOLERATED WELL. PT INSTRUCTED TO GET UP AND DRESSED. AT BEDSIDE FOR ASSIST.
--- NOTE | 2018-11-18 14:26 | NUR ---
DISCUSSED DISCHARGE INSTRUCTIONS WITH PT AND PT'S FAMILY. THEY VOICED UNDERSTANDING. RIGHT WRIST TR BAND REMOVED AND DRESSING APPLIED. NO BLEEDING/HEMATOMA NOTED. WILL MONITOR FOR A FEW MINUTES PRIOR TO LETTING PT DISCHARGE HOME.
--- NOTE | 2018-11-18 14:58 | OP ---
PATIENT NAME: IGOR HERNANDEZ MEDICAL RECORD: [id number] :43 LOCATION:D.CAT ADMISSION DATE: SURGEON: SHAHNAZ MOLINA MD DATE OF OPERATION: 11/18/2018 DATE OF SERVICE: 11/18/2018 PROCEDURES: 1. PTCA, LAD. 2. Intravascular ultrasound of the LAD. 3. Left heart catheterization. 4. Selective coronary angiography. 5. Left ventriculogram. INDICATION: Angina and coronary artery disease. PROCEDURE IN DETAIL: After informed consent was obtained and after a detailed description of risks, benefits, as well as alternative therapies, the patient elected to proceed with angiogram and angioplasty. The right radial area was prepped and draped in normal sterile fashion. Right radial artery was cannulated via modified Seldinger technique with placement of 6-Divehi sheath. All catheters exchanged through this sheath. FINDINGS: The left ventriculogram was performed in standard 30-degree SKAGGS view, reveals good cardiac wall motion throughout all segments. Overall ejection fraction estimated at 60%. SELECTIVE CORONARY ANGIOGRAPHY: 1. Left main is with no significant angiographic disease. 2. Left anterior descending has previously placed stent. Intravascular ultrasound reveals that there is greater than 70% in-stent restenosis. 3. The left circumflex has previously placed stents, these are patent with no significant restenosis. No disease elsewise is significant throughout the circumflex or its branches. 4. The right coronary has previously placed stents, these are widely patent with no significant restenosis. No disease elsewise throughout the RCA or its branches. PTCA OF THE LAD: The balloon used was a 3.5 x 20, multiple high pressure inflations were made. Result was 0% residual stenosis. OVERALL IMPRESSION: Successful percutaneous transluminal coronary angioplasty for in-stent restenosis of the left anterior descending going from 70% initial stenosis to 0% residual. TRANSINT:[id number] Voice Confirmation ID: [id number] DOCUMENT ID: [id number] OPERATIVE REPORT [id number] IGOR HERNANDEZ JEFFREY MD at 1458 CC: [id number] DICTATION DATE: 11/18/18 1033 LEGAL ANALYST: 11/18/18 1109 [facility] [address] [place] [address]
--- NOTE | 2018-11-18 15:00 | NUR ---
PT TAKEN TO RESTROOM. VOIDED WITHOUT DIFFICULTY. TAKEN OUT TO VEHICLE BY WHEELCHAIR. NO S/S OF DISTRESS NOTED. ALL BELONGINGS IN HAND.
== END 2018-11-18 15:00 | disposition home or self-care (01) ==
LOC: D.CATH 08:04
PROVIDERS: ATTEND Internal Medicine Interventional Cardiology
DX: I25.110 Atherosclerotic heart disease of native coronary artery with unstable angina pectoris (principal)

== ENCOUNTER 2019-01-26 11:15 | Outpatient (CLI) | payer MEDICARE, BC ==
[~2019-01-26] VITALS: Ht 177.8 cm; Wt 70.5 kg
--- NOTE | ~2019-01-26 | HEMODYNAMI ---
PATIENT:IGOR HERNANDEZ MEDICAL RECORD: [id number] : 43 LOCATION:[facility] ADMISSION DATE: 01/26/19 Generatedon:01/26/201915:58 Patient name: IGOR HERNANDEZ Patient #: [id number] : 1945 Date of study: 01/26/2019 Page: Of Hemodynamic Procedure Report Patient Data Patient Demographics Procedure consent was obtained First Name: IGOR Gender: Male Last Name: DAVID : 1945 [facility] Initial: OTILIA Age: 73 year(s) Patient #: [id number] Race: SSN: [id number] Additional ID: [id number] Contact details Address: [address] [address] State: [place] City: [place] Zip code: [address] Past Medical History Allergies Allergen Reaction Date Comments Reported Other allergy 07/10/2016 Tetanus Other allergy 01/14/2018 TETANUS VACCINES AND TOXOID Other allergy 11/18/2018 TETANUS AND TOXOID Other allergy 01/26/2019 Tetanus vaccines, toxoid Admission Admission Data Admission Date: 01/26/2019 Admission Time: 11:15 Lab Results Lab Result Date: 01/26/2019 Lab Result Time: 0:00 Biochemistry Name Units Result Min Max BUN mg/dl 16 --(---*)-- 7 18 Creatinine mg/dl 1.6 --(----)-* 0.6 1.3 Procedure Procedure Types Cath Procedure Diagnostic Procedure LHC LHC w/Coronaries Procedure Description Procedure Date Procedure Date: 01/26/2019 Procedure Start Time: 15:48 Procedure End Time: 15:57 Procedure Staff Name Function Regan Santos MD Performing Physician Brigette Acevedo RT Monitor Keke Polk RT Scrub Martha Faulkner RN Nurse Procedure Data Cath Procedure Fluoroscopy Diagnostic fluoroscopy Total fluoroscopy Time: 2.4 time: 2.4 min min Diagnostic fluoroscopy Total fluoroscopy dose: 541 dose: 541 mGy mGy Contrast Material Contrast Material Type Amount (ml) Isovue 300 54 Entry Location Entry Primary Successful Side Size Upsize Upsize Entry Closure Dee ccessful Closure Location (Fr) 1 (Fr) 2 (Fr) Remarks Device Remarks Radial Right 6 Fr Mechanical tr artery Short Compression Estimated blood loss: 10 ml Diagnostic catheters Device Type Used For End Catheter Placement DIAGNOSTIC Nichols 110cm 5 Procedure Fr catheter ([id number]) Procedure Complications No complications Procedure Medications Medication Administration Route Dosage 0.9% NaCl I.V. 100 ml/hr Oxygen etCO2 Nasal cannula 2 l/min Lidocaine 2% added to field 20 Heparin Flush Bag added to field 2 bags (1000units/500ml NS) Radial Cocktail added to field 1 syringe (Verapamil 2mg/Nitro 400mcg/Heparin 1500units) Versed I.V. 2 mg Fentanyl I.V. 50 mcg Fentanyl I.V. 50 mcg Hemodynamics Rest Heart Rate: 54 (bpm) Snapshots Pre Cath Intra NCS Post Cath Vital Signs Time Heart Resp SPO2 etCO2 NIBP (mmHg) Rhythm Pain Sedation Rate (ipm) (%) (mmHg) Status Level (bpm) 15:36:15 54 13 100 30 182/92(159) SB 0 (11) 10(A) , No pain 15:40:39 53 14 98 36 170/84(151) SB 0 (11) 10(A) , No pain 15:44:54 52 19 97 33.1 131/74(84) SB 0 (11) 9(A) , No pain 15:48:59 59 17 97 38.3 130/76(114) SB 0 (11) 9(A) , No pain 15:53:09 57 15 98 37.6 97/59(72) SB 0 (11) 9(A) , No pain 15:57:17 59 16 98 35.3 112/50(65) SB 0 (11) 10(A) , No pain Medications Time Medication Route Dose Verified Delivered Reason Notes E ffectiveness by by 15:35:14 0.9% NaCl I.V. 100 Regan Martha used for ml/hr Danielle Faulkner alodize machine helper 15:35:20 Oxygen etCO2 2 l/min Regan Rasmussenyla used for Nasal Danielle Faulkner procedure cannula RN 15:35:26 Lidocaine 2% added 20ml Regan Spears for local to vial Danielle Santos MD anesthetic field 15:35:30 Heparin Flush added 2 bags Regan Spears used for Bag to Danielle Santos MD procedure (1000units/500ml field NS) 15:35:36 Radial Cocktail added 1 Regan Regan used for (Verapamil to syringe Danielle Santos MD procedure 2mg/Nitro field 400mcg/Heparin 1500units) 15:46:56 Versed I.V. 2 mg Regan Rasmussenyla for Danielle Faulkner sedation RN 15:47:03 Fentanyl I.V. 50 mcg Regan Vasqueza for Danielle Faulkner sedation RN 15:52:20 Fentanyl I.V. 50 mcg Regan Rasmussenyla for Danielle Faulkner sedation care director rn Log Time Note 15:15:31 Martha Faulkner RN sent for patient. Start room use. 15:15:32 Time tracking: Regular hours (M-F 7:00 - 5:00) 15:15:36 Plan of Care:Hemodynamics will remain stable., Cardiac rhythm will remain stable., Comfort level will be maintained., Respiratory function will remain adequate., Patient/ family verbilizes understanding of procedure., Procedure tolerated without complication., Recovers from procedure without complications.. 15:30:31 Patient received from ED to CCL 2 Alert and oriented. Tansferred to table in Supine position. 15:30:32 Warm blankets applied, and cy hugger turned on for patient comfort. 15:30:32 Correct patient and procedure confirmed by team. 15:30:33 Signed procedure consent form obtained from patient. 15:30:34 ECG and BP/O2 sat monitors applied to patient. 15:35:02 Vital chart was started 15:35:14 0.9% NaCl 100 ml/hr I.V. was administered by Martha Faulkner RN; used for procedure; 15:35:20 Oxygen 2 l/min etCO2 Nasal cannula was administered by Martha Faulkner RN; used for procedure; 15:35:26 Lidocaine 2% 20ml vial added to field was administered by Regan Santos MD; for local anesthetic; 15:35:30 Heparin Flush Bag (1000units/500ml NS) 2 bags added to field was administered by Regan Santos MD; used for procedure; 15:35:36 Radial Cocktail (Verapamil 2mg/Nitro 400mcg/Heparin 1500units) 1 syringe added to field was administered by Regan Santos MD; used for procedure; 15:40:37 Baseline sample Acquired. 15:40:41 Rhythm: sinus rhythm 15:40:43 Full Disclosure recording started 15:40:54 H&P Date Dictated: 01/26/2019 Emergent; H&P N/A. 15:40:56 Pre-procedure instructions explained to patient. 15:41:14 Pre-op teaching completed and patient verbalized understanding. 15:41:16 Family in waiting room. 15:41:19 Patient NPO since Midnight. 15:41:43 Patient allergic to Other allergyTetanus vaccines, toxoid 15:41:48 Is the patient allergic to Iodine/contrast media? No. 15:41:50 Was the patient premedicated? Yes 15:41:51 Is patient on blood thinner?Yes 15:41:53 Patient diabetic? No. 15:41:58 Snore? Yes 15:41:59 Sleep apnea? No 15:42:04 Dentures? Yes ? 15:42:11 Patient pain scale 0/10 ?. 15:42:17 IV patent on arrival in left forearm with 0.9% NaCl at [facility]. 15:43:09 Lab Result : BUN 16 mg/dl 15:43:09 Lab Result : Creatinine 1.6 mg/dl 15:43:13 Lab results completed and on chart. 15:43:17 Right groin area was prepped with chlora-prep and draped in sterile fashion 15:43:18 Alarms reviewed by R. N. 15:43:18 Sharps counted by scrub and verified by R.N. 15:43:21 Physician paged 15:46:13 Physician arrived 15:46:13 --------ALL STOP TIME OUT------ 15:46:14 Final Timeout: patient, procedure, and site verified with staff and physician. All members of the team are in agreement. 15:46:18 Right Radial & Right Groin site verified by team. 15:46:26 Maximum allowable Isovue 300 dose 300ml. Physician notified. (300ml for normal creatinines. For patients with creatinine of 1.7 or higher multiply weight(kg) x 5 divided by creatinine.) 15:46:32 Fire Safety Assessment: A--An alcohol-based skin anteseptic being used preoperatively., C--Open oxygen or nitrous oxide is being used., D--An ESU, laser, or fiber-optic light is being used. 15:46:36 Physical assessment completed. ASA score P 2 - A patient with mild systemic disease as per Regan Santos MD. 15:46:40 Sedation plan: IV Moderate Sedation Medication:Versed, Fentanyl 15:46:56 Versed 2 mg I.V. was administered by Martha Faulkner RN; for sedation; 15:47:03 Fentanyl 50 mcg I.V. was administered by Martha Faulkner RN; for sedation; 15:47:56 Use device set Radial Dx or PCI 15:47:58 Procedure started. 15:48:07 Local anesthetic to right radial artery with Lidocaine 2% by Regan Santos MD.INITIAL ACCESS ONLY 15:48:09 ACIST Syringe (14706) opened to sterile field. 15:48:09 Medline Cath Pack ([id number]) opened to sterile field. 15:48:10 Bag Decanter (2002) opened to sterile field. 15:48:11 DIAGNOSTIC WIRE .035 260cm J wire (555422) opened to sterile field. 15:48:11 ACIST Hand Control (40542) opened to sterile field. 15:48:11 ACIST Manifold (46727) opened to sterile field. 15:48:12 Tegaderm 4 x 4 (1626W) opened to sterile field. 15:48:13 MBrace Wrist Support ([id number]) opened to sterile field. 15:48:16 SHEATH 6FR Slender (27-1216) opened to sterile field. 15:48:48 A 6 Fr Short sheath was inserted into the Right Radial artery 15:49:07 A DIAGNOSTIC Nichols 110cm 5 Fr catheter (006588) was advanced over the wire and used for Procedure. 15:49:52 LV angiography performed. 15:49:57 LV gram done using SKAGGS 15:50:12 EF : 50 % 15:50:24 RCA angiography performed. 15:50:58 Catheter removed. 15:51:12 GUIDE 6FR XBC 3 ([id number]) opened to sterile field. 15:51:54 LCA angiography performed. 15:52:20 Fentanyl 50 mcg I.V. was administered by Martha Faulkner RN; for sedation; 15:54:02 Catheter removed. 15:54:43 TR BAND Standard ([id number]) opened to sterile field. 15:54:57 Sheath removed intact; hemostasis achieved with Mechanical Compression to the Right Radial artery. 15:55:00 Procedure ended.(Physican Out) 15:56:37 Fluoroscopy time 02.40 minutes. 15:56:42 Fluoroscopy dose: 541 mGy 15:56:42 Flurop Dose total: 541 15:56:47 Contrast amount:Isovue 300 54ml. 15:56:48 Sharps counted by scrub and verified by R.N. 15:56:51 TR band inflated with 10cc of air. 15:56:53 Insertion/operative site no bleeding no hematoma. 15:56:58 Post Procedure Pulses reassessed and unchanged 15:57:02 Post-procedure physical assessment completed. ASA score P 2 - A patient with mild systemic disease as per Regan Santos MD. 15:57:12 Post procedure rhythm: unchanged. 15:57:15 Estimated blood loss: 10 ml 15:57:18 Post procedure instruction explained to patient.Patient verbalizes understanding. 15:57:25 Procedure and supply charges have been captured, reviewed, submitted and are correct. 15:57:42 Procedure Complication : No complications 15:57:44 Vital chart was stopped 15:57:45 See physician's report for complete and final results. 15:57:48 Report given to [facility]. 15:57:51 Patient transfered to [facility] with Bed. 15:57:53 Procedure ended. 15:57:53 Full Disclosure recording stopped 15:57:59 End room use (Document Last) Device Usage Item Name Manufacture Quantity Catalog Hospital Part Current Minimal Lot# / Number Charge Number Stock Stock Serial# Code ACIST Acist 1 33863 [id number] [id number] 040861 20 Syringe Medical (05450) Systems Inc Medline Medline 1 [id number] 055536 21991 646477 5 Cath Pack ([id number]) Bag Microtek 1 500677 61415 045229 5 Decanter Medical Inc. () DIAGNOSTIC [facility] Jose Daniel 1 927890 531850 764331 028079 30 WIRE .035 260cm J wire (186831) ACIST Hand Acist 1 83233 187917 191032 870341 5 Control Medical (33652) Systems Inc ACIST Acist 1 22135 994721 791496 043514 5 Manifold Medical (45230) Systems Inc Tegaderm 4 3M 1 1626W 433947 313544 190637 5 x 4 (1626W) MBrace Advanced 1 140-0250-00 604349 27542 697935 5 Wrist Vascular Support Dynamics ([id number]) SHEATH 6FR Terumo 1 [id number] 129139 586214 990744 5 Slender (80-1060) DIAGNOSTIC Terumo 1 40-7783 556899 141189 256406 5 Nichols 110cm 5 Fr catheter (286638) GUIDE 6FR Cardinal 1 [id number] 331831 18177 595458 5 [facility] 3 [facility] (29642595) TR BAND Terumo 1 [id number] 289255 041137 567698 40 Standard ([id number]) Signature Audit Morgan Stage Time Signature Unsigned Intra-Procedure 01/26/2019 Brigette Acevedo 3:58:47 PM RT(R) Signatures Monitor : Brigette Acevedo Signature : RT Date : Time : [facility] Shaheen [place], [place] [address]
[~2019-01-26 11:15] MED LIST changes: +AMBIEN10 MG PO; +ZETIA10 MG PO
[2019-01-26 12:10] LABS: BASOPHILS 0.3 % (0-2); HEMATOCRIT 42.3 % (42.0-54.0); HEMOGLOBIN 15.1 g/dL (13.5-17.5); IMMATURE GRANULOCYTES 0.1 % (0-5); LYMPHOCYTES 25.9 % (15-50); MCH 30.4 pg (26.0-34.0); MCHC 35.7 g/dL (31.0-37.0); MCV 85.1 fL (80.0-100.0); MEAN PLATELET VOLUME 9.1 fL (7.4-10.4); NEUTROPHILS 61.7 % (40-80); PLATELET COUNT 277 10x3/uL (130-400); RBC 4.97 10x6/uL (4.20-6.10); RDW 13.1 % (11.5-14.5); WBC 6.9 10x3/uL (4.8-10.8)
[2019-01-26 12:25] LABS: APTT 30.3 SECONDS (22.8-39.4); INR 1.1 (0.85-1.17); PROTIME 13.7 SECONDS (11.6-15.0)
[2019-01-26 12:33] LABS: ALBUMIN 4.1 g/dL (3.4-5.0); ALKALINE PHOSPHATASE 70 U/L (46-116); ALT (SGPT) 33 U/L (10-68); BILIRUBIN - TOTAL 1.23 mg/dL (0.2-1.3); CALC OSMOLALITY 275 mosm/kg (275-300); CALCIUM 9.3 mg/dL (8.5-10.1); CARBON DIOXIDE 28.2 mmol/L (21.0-32.0); CHLORIDE - SERUM 101 mmol/L (98-107); CREATININE - SERUM 1.6 mg/dL (0.6-1.3); GLUCOSE 88 mg/dL (74-106); POTASSIUM - SERUM 3.5 mmol/L (3.5-5.1); PROTEIN - SERUM 7.1 g/dL (6.4-8.2); SODIUM 138 mmol/L (136-145); UREA NITROGEN 16 mg/dL (7-18); eGFR NON AFRICAN AMERICAN 45 mL/min (90-120)
[2019-01-26 12:43] LABS: CKMB 0.6 U/L (0.0-3.6); CREATINE KINASE 53 UL (21-232); MAGNESIUM - SERUM 1.9 mg/dL (1.8-2.4)
[2019-01-26 12:44] LABS: TROPONIN-I < 0.017 ng/mL (0.000-0.060)
--- NOTE | 2019-01-26 16:30 | NUR ---
RECEIVED PT FROM H[facility] SERVICE SPECIALIST VIA BED IN STABLE CONDITION VSS PPPX4 RT WRIST WITH TR BAND AND BRACE INTACT NO BLEEDING NOTED AT SITE NAD NOTED
[2019-01-26 17:02] VITALS: BP 122/67; Ht 177.8 cm; Wt 70.5 kg
--- NOTE | 2019-01-26 19:00 | NUR ---
REVIEWED DISCHARGE INSTRUCTIONS WITH PT STATES UNDERSTANDING COPY GIVEN DCD SALINE LOCK TO LFA WITH IV CATHETER INTACT SITE FREE OF REDNESS OR EDEMA PT DCD HOME LEFT UNIT IN STABLE CONDITION WITH ALL PERSONAL BELONGINGS LEFT VIA W/C
--- NOTE | 2019-02-03 11:27 | CN ---
PATIENT NAME:IGOR HERNANDEZ MEDICAL RECORD: [id number] : 43 LOCATION:[facility] ADMIT DATE: ACCOUNT: [id number] CONSULTING PHYSICIAN: SHAHNAZ MOLINA MD REFERRING PHYSICIAN: SHAHNAZ MOLINA MD DATE OF CONSULTATION: 01/26/2019 DIAGNOSES: 1. Unstable angina. 2. Coronary artery disease. 3. Previous multivessel percutaneous transluminal coronary angioplasty stent. 4. Hypertension. 5. Hyperlipidemia. HISTORY OF PRESENT ILLNESS: Mr. Hernandez for the last 2 days, has had increasing episodes of chest pain, chest discomfort compatible with angina. He saw Dr. Mirza yesterday, had the addition of a calcium channel valeria to his lisinopril, Imdur, and Zocor. He presented back today with worsening chest pain that has been worsening over the past 48 hours. It is just like that of his previous angina. Last cardiac intervention was in August. It was a PTCA for in-stent restenosis of the LAD. His heart rate is in the 50s. His systolic blood pressure in the 110 range, hence he is on maximal medical therapy, but continues to have progression of his angina despite that. PHYSICAL EXAMINATION: GENERAL APPEARANCE: Well-nourished, well-developed, appears stated age. Level of distress, comfortable. PSYCHIATRIC: Mental status, alert, normal affect. Orientation, oriented to time, place and person. EYES: Lids and conjunctiva, noninjected. No discharge, no pallor. ENT: Lips, teeth, gums, normal dentition. Oropharynx, no cyanosis, no pallor. NECK: Carotid arteries, bilateral normal upstroke, no bruits, no thrills. JUGULAR VEINS: No jugular venous pressure or distention. CERVICAL LYMPH NODES: Nontender, nonenlarged. THYROID: Not enlarged. Nontender. No nodules. LUNGS: Respiratory effort, unlabored. CHEST: Normal curvature. No thoracic deformity. No chest wall tenderness. Percussion, resonant. Auscultation, clear. No wheezes, no rales, no rhonchi. CARDIOVASCULAR: Precordial exam, nondisplaced. No heaves or pericardial thrills. Rate and rhythm, regular. Heart sounds, normal S1, normal S2. No S3, no gallop, no rub. Systolic murmur, not heard. Diastolic murmur, not heard. EXTREMITIES: No cyanosis, no edema. Peripheral pulses, full and equal in all extremities, except as noted. No bruits appreciated. ABDOMEN: Soft, nondistended. Normal aorta. No bruit. Nontender. No masses. Liver, nontender, no hepatomegaly. Spleen, nontender, no splenomegaly. MUSCULOSKELETAL: No joint tenderness. No joint swelling. No erythema. NEUROLOGICAL: Normal gait, normal strength, normal tone. SKIN: Warm and dry. OVERALL IMPRESSION: Unstable angina with progression of symptomatology despite maximal medical therapy, optimal heart rate, and blood pressure in a patient with a past history of multivessel PTCA stent, the last intervention standalone PTCA for in-stent restenosis of the LAD. Most likely, he has recurrent hemodynamically significant coronary artery disease. We will proceed with coronary angiography. Further care depends upon findings of the angiography. CONSULT REPORT [id number] IGOR HERNANDEZ TRANSINT:[id number] Voice Confirmation ID: [id number] DOCUMENT ID: [id number] SHAHNAZ MOLINA MD at 1127 CC: [id number] DICTATION DATE: 01/26/19 1150 COIL TESTER: 01/26/19 1324 DEP CLI 01/26/19 [facility] [address] [place] [address]
--- NOTE | 2019-02-03 11:27 | OP ---
PATIENT NAME: IGOR HERNANDEZ MEDICAL RECORD: [id number] :43 LOCATION:[facility] ADMISSION DATE: SURGEON: SHAHNAZ MOLINA MD DATE OF OPERATION: 01/26/2019 PROCEDURES: 1. Left heart catheterization. 2. Selective coronary angiography. 3. Left ventriculogram. INDICATION: Angina, coronary artery disease, previous multivessel PTCA and stent, hypertension, and hyperlipidemia. PROCEDURE IN DETAIL: After informed consent was obtained with detailed description of risks and benefits as well as alternative therapies, the patient elected to proceed with angiogram and heart catheterization. The right radial area was prepped and draped in normal sterile fashion. The right radial artery was cannulated via modified Seldinger technique with placement of 5-Rwandan sheath. All catheters were exchanged through this sheath. FINDINGS: Left ventriculogram performed in standard 30-degree SKAGGS view reveals good cardiac wall motion throughout all segments. Overall ejection fraction is estimated at 60%. SELECTIVE CORONARY ANGIOGRAPHY: 1. Left main is with no significant angiographic disease. 2. Left anterior descending has previously placed stents. These are widely patent with no significant restenosis. No disease elsewise of the LAD or its branches. 3. Left circumflex has previously placed stents. These are widely patent with no significant restenosis. No disease elsewise of the circumflex or its branches. 4. Right coronary has previously placed stents. These are widely patent with no significant restenosis. No disease elsewise of the RCA or its branches. OVERALL IMPRESSION: Wide patency of all the previously placed stents. No disease elsewise. Continue medical management of coronary artery disease and cardiac risk factors. TRANSINT:[id number] Voice Confirmation ID: [id number] DOCUMENT ID: [id number] SHAHNAZ MOLINA MD at 1127 CC: [id number] DICTATION DATE: 01/26/19 1558 WATER PURIFIER: 01/26/19 1949 DEP CLI 01/26/19 [facility] [address] [place] [address]
== END 2019-01-26 19:00 | disposition home or self-care (01) ==
LOC: D.ER 11:15 → D.CATH 11:15 → EDSTATUS 12:33 → D.M2 16:25 → D.CATH 19:00
PROVIDERS: Family Medicine; ATTEND Internal Medicine Interventional Cardiology
DX: I25.119 Atherosclerotic heart disease of native coronary artery with unspecified angina pectoris (principal); Z95.5 Presence of coronary angioplasty implant and graft; I10 Essential (primary) hypertension; E78.5 Hyperlipidemia, unspecified; Z01.812 Encounter for preprocedural laboratory examination

== ENCOUNTER 2019-06-21 07:18 | Outpatient (CLI) | payer MEDICARE, BC ==
[~2019-06-21] VITALS: Ht 177.8 cm; Wt 77.3 kg
--- NOTE | ~2019-06-21 | HEMODYNAMI ---
PATIENT:IGOR HERNANDEZ MEDICAL RECORD: [id number] : 43 [facility] AD[facility]ION DATE: 06/21/19 Generatedon:06/21/201911:26 Patient name: IGOR HERNANDEZ Patient #: [id number] : 1945 Date of study: 06/21/2019 Page: Of Hemodynamic Procedure Report Patient Data Patient Demographics Procedure consent was obtained First Name: IGOR Gender: Male Last Name: DAVID : 1945 [facility] Initial: OTILIA Age: 73 year(s) Patient #: [id number] Race: SSN: [id number] Additional ID: [id number] Contact details Address: [place] [address] State: [place] City: [place] Zip code: [address] Past Medical History Allergies Allergen Reaction Date Comments Reported Other allergy 07/10/2016 Tetanus Other allergy 01/14/2018 TETANUS VACCINES AND TOXOID Other allergy 11/18/2018 TETANUS AND TOXOID Other allergy 01/26/2019 Tetanus vaccines, toxoid Other allergy 06/21/2019 nkda Admission Admission Data Admission Date: 06/21/2019 Admission Time: 7:46 Arrival Date: 06/21/2019 Arrival Time: 0:00 Admit Source: Other Insurance Payor: Medicare Room #: D.2101 [facility] #: [id number] Height (in.): 70.08 BSA: 2.09 (m2) Height (cm.): 178 BMI: 28.72 (kg/m2) Weight (lbs.): 200.62 Weight (kg.): 91 Lab Results Lab Result Date: 06/21/2019 Lab Result Time: 0:00 Biochemistry Name Units Result Min Max BUN mg/dl 12 --(-*--)-- 7 18 Creatinine mg/dl 1.5 --(----)-* 0.6 1.3 eGFR ml/min 49 *-(----)-- 90 120 NONAFRICAN CBC Name Units Result Min Max Hemoglobin g/dl 14.6 --(-*--)-- 13.5 17.5 Procedure Procedure Types Cath Procedure Diagnostic Procedure [facility] w/Coronaries FFR/IVUS FFR Initial FFR Additional Sedation Charges Moderate Sedation up to 15 minutes PCI Procedure Coronary Stent Coronary Stent Initial x2 Procedure Description Procedure Date Procedure Date: 06/21/2019 Procedure Start Time: 10:57 Procedure End Time: 11:25 Procedure Staff Name Function Regan Santos MD Performing Physician Marlen Castillo RT Monitor Jaylyn Hurtado RT Monitor Kristy Pena RN Nurse Nunu Basilio RT Scrub John Weston RN Attendant Coin Operated Laundry Indication Chest pain Procedure Data Cath Procedure Fluoroscopy Diagnostic fluoroscopy Total fluoroscopy Time: 7.2 time: 7.2 min min Diagnostic fluoroscopy Total fluoroscopy dose: 846 dose: 846 mGy mGy Contrast Material Contrast Material Type Amount (ml) Isovue 300 139 Entry Location Entry Primary Successful Side Size Upsize Upsize Entry Closure Dee ccessful Closure Location (Fr) 1 (Fr) 2 (Fr) Remarks Device Remarks Radial Right 6 Fr Mechanical artery Short Compression Estimated blood loss: 10 ml Diagnostic catheters Device Type Used For End Catheter Placement DIAGNOSTIC Clyde 110cm 5 Procedure Fr catheter ([id number]) Procedure Complications No complications Procedure Medications Medication Administration Route Dosage Oxygen etCO2 Nasal cannula 2 l/min Lidocaine 2% added to field 20 Heparin Flush Bag added to field 2 bags (1000units/500ml NS) 0.9% NaCl I.V. 100 ml/hr Versed I.V. 2 mg Fentanyl I.V. 100 mcg Radial Cocktail I.A. 1 syringe (Verapamil 2mg/Nitro 400mcg/Heparin 1500units) Heparin Bolus I.V. 4000 units Versed I.V. 1 mg Fentanyl I.V. 50 mcg Hemodynamics Rest BSA: 2.09 (m2) HGB: 14.6 (g/dl) O2 Consumption: Estimated: 215.27 (ml/min) O2 Co nsumption indexed: Estimated:103 (ml/min/m) Heart Rate: 38 (bpm) Snapshots Pre Cath Intra NCS Post Cath Vital Signs Time Heart Resp SPO2 etCO2 NIBP (mmHg) Rhythm Pain Sedation Rate (ipm) (%) (mmHg) Status Level (bpm) 10:34:32 53 11 100 22.6 178/91(146) NSR 0 (11) 10(A) , No pain 10:38:52 52 17 100 37.6 143/80(131) NSR 0 (11) 10(A) , No pain 10:43:02 52 17 96 19.5 127/75(98) NSR 0 (11) 10(A) , No pain 10:47:03 55 15 95 39.1 125/81(97) NSR 0 (11) 10(A) , No pain 10:51:07 57 14 97 41.4 118/75(93) NSR 0 (11) 10(A) , No pain 10:55:09 57 15 97 41.4 118/75(90) NSR 0 (11) 10(A) , No pain 10:59:08 58 12 95 39.9 108/83(90) NSR 0 (11) 9(A) , No pain 11:03:06 64 21 94 32.4 123/71(91) NSR 0 (11) 9(A) , No pain 11:07:14 67 14 94 34.6 121/61(104) NSR 0 (11) 9(A) , No pain 11:11:22 66 16 96 33.9 111/61(87) NSR 0 (11) 9(A) , No pain 11:15:24 67 22 97 36.1 102/63(90) NSR 0 (11) 9(A) , No pain 11:19:23 66 12 97 37.6 108/60(88) NSR 0 (11) 10(A) , No pain 11:23:25 61 12 98 39.1 105/61(75) NSR 0 (11) 10(A) , No pain Medications Time Medication Route Dose Verified Delivered Reason Not es Effectiveness by by 10:33:39 Oxygen etCO2 2 l/min Regan Shoemakerie used for Nasal Danielle Pena equal opportunity assistant cannula 10:33:45 Lidocaine 2% added 20ml Regan Buffie used for to vial Danielle Pena equal opportunity assistant field 10:33:52 Heparin Flush added 2 bags Regan Buffie used for Bag to Danielle Pena equal opportunity assistant (1000units/500ml field NS) 10:34:01 0.9% NaCl I.V. 100 Regan Buffie Per physician ml/hr Danielle Pena RN 10:56:34 Versed I.V. 2 mg Regan Wagner for sedation Danielle Pena RN 10:56:41 Fentanyl I.V. 100 mcg Regan Wagner for sedation Danielle Pena RN 10:59:19 Radial Cocktail I.A. 1 Regan Spears for (Verapamil syringe Danielle Santos MD vasodilation 2mg/Nitro 400mcg/Heparin 1500units) 11:04:34 Versed I.V. 1 mg Regan Wagner for sedation Danielle Pena RN 11:04:39 Fentanyl I.V. 50 mcg Regan Wagner for sedation Danielle Pena RN 11:09:17 Heparin Bolus I.V. 4000 Regan Wagner for barry ified units Danielle Pena RN anticoagulation with dr santos Procedure Log Time Note 9:54:06 Informed consent obtained and on chart 9:57:23 Arrival Date: 06/21/2019 12:00:00 AM 9:57:54 Patient Height : 70.08 inches 9:58:00 Patient Weight : 200.62 lbs 9:58:03 Admit Source: Other 9:58:08 Insurance Payor : Medicare 9:59:20 Lab Result : Hemoglobin 14.6 g/dl 9:59:20 Lab Result : eGFR NONAFRICAN 49 ml/min 9:59:20 Lab Result : BUN 12 mg/dl 9:59:20 Lab Result : Creatinine 1.5 mg/dl 9:59:28 Diagnostic Cath Status : Elective 10:00:49 Indication : Chest pain 10:02:53 ACC Patient presents with Stable Angina CCS Anginal Class 1--Ordinary physical activity does not cause angina, angina occurs with strenuos, rapid, or prolonged activity.. 10:03:41 ACCPatient has been prescribed/administered the following anti-anginal medication within the last 2 weeks: Long-Acting Nitrates, PAT-Inhibitor 10:07:08 Procedure Status Elective Heart Cath (OP). 10:15:12 Kristy Pena RN sent for patient. Start room use. 10:15:21 Time tracking: Regular hours (M-F 7:00 - 5:00) 10:15:31 Plan of Care:Hemodynamics will remain stable., Cardiac rhythm will remain stable., Comfort level will be maintained., Respiratory function will remain adequate., Patient/ family verbilizes understanding of procedure., Procedure tolerated without complication., Recovers from procedure without complications.. 10:23:40 Patient received from Med II to CCL 1 Alert and oriented. Tansferred to table in Supine position. 10:23:44 Warm blankets applied, and cy hugger turned on for patient comfort. 10:23:45 Correct patient and procedure confirmed by team. 10:24:27 H&P Date Dictated: 06/21/2019 Within 30 days and on chart.. 10:24:30 Pre-procedure instructions explained to patient. 10:24:31 Pre-op teaching completed and patient verbalized understanding. 10:25:03 Family in patients room. 10:25:06 Patient NPO since Midnight. 10:33:26 Vital chart was started 10:33:39 Oxygen 2 l/min etCO2 Nasal cannula was administered by Kristy Pena RN; used for procedure; Verbal order read back and verified. 10:33:45 Lidocaine 2% 20ml vial added to field was administered by Kristy Pena RN; used for procedure; Verbal order read back and verified. 10:33:52 Heparin Flush Bag (1000units/500ml NS) 2 bags added to field was administered by Kristy Pena RN; used for procedure; Verbal order read back and verified. 10:33:56 Patient allergic to Other allergynkda 10:34:01 0.9% NaCl 100 ml/hr I.V. was administered by Kristy Pena RN; Per physician; Verbal order read back and verified. 10:34:01 ECG and BP/O2 sat monitors applied to patient. 10:34:06 Baseline sample Acquired. 10:34:22 Rhythm: sinus rhythm 10:36:40 Full Disclosure recording started 10:36:41 - 10:36:52 Is the patient allergic to Iodine/contrast media? No. 10:36:57 Is patient on blood thinner?Yes 10:37:02 ACC The patient was administered the following blood thiners within the last 24 hours: ACCAspirin, ACCPlavix 10:37:06 Patient diabetic? No. 10:37:18 ----Pre-sedation anethsthesia assessment.---- 10:37:23 Previous problem with sedation/anesthesia? No ? 10:37:26 Snore? Yes 10:37:29 Sleep apnea? No 10:37:32 Deviated septum? No 10:37:35 Opens mouth fully? Yes 10:37:37 Sticks out tongue? Yes 10:37:40 Airway obstruction? No ? 10:37:44 Dentures? No ? 10:37:49 Pre procedure: right dorsailis pedis pulse 2+ Normal; easily identifiable; not easily obliterated 10:37:54 Pre procedure: left dorsailis pedis pulse 2+ Normal; easily identifiable; not easily obliterated 10:38:00 Modified Blair's test Ulnar < 7 seconds 10:38:06 Patient pain scale 0/10 ?. 10:38:14 IV patent on arrival in left antecubital with 0.9% NaCl at [facility]. 10:38:26 Lab results completed and on chart. 10:38:52 Risk of Mortality: 0.2 10:38:58 Risk of blood transfusion: 1.9 10:39:04 Risk of NADEEM: 2.6 10:39:11 Right Radial & Right Groin area was prepped with chlora-prep and draped in sterile fashion 10:39:13 Alarms reviewed by R. N. 10:39:14 Sharps counted by scrub and verified by R.N. 10:42:40 Zero performed for pressure channel P1 10:46:33 Zero performed for pressure channel P1 10:55:31 Use device set Radial Dx or PCI 10:55:33 ACIST Syringe (83439) opened to sterile field. 10:55:33 Medline Cath Pack ([id number]) opened to sterile field. 10:55:34 Bag Decanter () opened to sterile field. 10:55:35 ACIST Hand Control (94144) opened to sterile field. 10:55:37 ACIST Manifold (47990) opened to sterile field. 10:55:38 Tegaderm 4 x 4 (1626W) opened to sterile field. 10:55:39 MBrace Wrist Support ([id number]) opened to sterile field. 10:55:42 EMERALD Guide Wire (233-992) opened to sterile field. 10:55:43 SHEATH 6FR RAIN (7352876) opened to sterile field. 10:56:00 Physician arrived 10:56:01 --------ALL STOP TIME OUT------ 10:56:02 Final Timeout: patient, procedure, and site verified with staff and physician. All members of the team are in agreement. 10:56:06 Right Radial & Right Groin site verified by team. 10:56:12 Fire Safety Assessment: A--An alcohol-based skin anteseptic being used preoperatively., C--Open oxygen or nitrous oxide is being used., D--An ESU, laser, or fiber-optic light is being used. 10:56:18 Physical assessment completed. ASA score P 2 - A patient with mild systemic disease as per Regan Santos MD. 10:56:27 3a) 45-59 Moderately reduced kidney function. 10:56:33 Maximum allowable contrast dose (3.7 X eGFR X 0.75)136 ml. 10:56:34 Versed 2 mg I.V. was administered by Kristy Pena RN; for sedation; Verbal order read back and verified. 10:56:40 Sedation plan: IV Moderate Sedation Medication:Versed, Fentanyl 10:56:41 Fentanyl 100 mcg I.V. was administered by Kristy Pena RN; for sedation; Verbal order read back and verified. 10:57:22 Procedure started. 10:57:29 Local anesthetic to right brachial artery with Lidocaine 2% by Regan Santos MD.INITIAL ACCESS ONLY 10:58:24 A 6 Fr Short sheath was inserted into the Right Radial artery 10:58:36 A DIAGNOSTIC Clyde 110cm 5 Fr catheter (299508) was advanced over the wire and used for Procedure. 10:59:19 Radial Cocktail (Verapamil 2mg/Nitro 400mcg/Heparin 1500units) 1 syring e I.A. was administered by Regan Santos MD; for vasodilation; Verbal order read back and verified. 10:59:34 LV gram done using SKAGGS 11:00:05 Injector settings: Ml/sec: 5, Volume: 15, 11:00:22 EF : 55 % 11:01:03 GUIDE 6FR EBU 3.0 catheter ([id number]) opened to sterile field. 11:01:31 RCA angiography performed. 11::21 Catheter exchanged over wire. 11::39 6 Fr ebu3 guide catheter was inserted over the wire 11:03:53 LCA angiography performed. 11:04:07 Injector settings: Ml/sec: 3, Volume: 5, 11:04:34 Versed 1 mg I.V. was administered by Kristy Pena RN; for sedation; Verbal order read back and verified. 11:04:39 Fentanyl 50 mcg I.V. was administered by Kristy Pena RN; for sedation; Verbal order read back and verified. 11:04:53 Keno Verrata Plus pressure wire (99060Y) opened to sterile field. 11:05:03 INFLATOR Merit BasixCompak (FZ3363) opened to sterile field. 11:06:33 FFR/IFR wire advanced. 11:08:58 Wire advanced across lesion. 11:09:10 pLAD lesion measured at .89 with IFR 11:09:17 Heparin Bolus 4000 units I.V. was administered by Kristy Pena RN; for anticoagulation; verified with dr santos Verbal order read back and verified. 11:09:37 Pre PCI Site: [place] Ram[place] has 90% stenosis. 11:11:31 Place stent Inflation Number: 1 A TIMMY RX 3.0 x 08 stent ([id number]) was prepped and advanced across the Undefined1 . The stent was deployed at 13 ESTRELLA for 0:10 (min:sec) . 11:11:42 Stent catheter was removed intact over wire. 11:12:45 WIRE REDIRECTED TO LAD. 11:13:14 pLAD lesion measured at .78 with IFR 11:14:46 Place stent Inflation Number: 1 A TIMMY RX 3.5 x 08 stent ([id number]) was prepped and advanced across the Prox LAD . The stent was deployed at 15 ESTRELLA for 0:10 (min:sec) . 11:15:39 Stent catheter was removed intact over wire. 11:15:42 Wire removed. 11:15:43 Guide catheter removed. 11:15:52 ZEPHYR REGULAR TR BAND (799786) opened to sterile field. 11:15:53 ACT drawn and resulted at 328 seconds. (normal therapeutic range 180-24 0 seconds). 11:16:13 Procedure ended.(Physican Out) 11:16:34 Sheath removed intact; hemostasis achieved with Mechanical Compression to the Right Radial artery. 11:19:01 Fluoroscopy time 07.20 minutes. 11:19:09 Fluoroscopy dose: 846 mGy 11:19: Flurop Dose total: 846 11:19:20 Dose Area Product 97472 mGy/cm. 11:19:30 Contrast amount:Isovue 300 139ml. 11:19:33 Maximum allowable dose exceeded? Yes. 11:19:38 Sharps counted by scrub and verified by R.N. 11:19:46 [place] band inflated with 10cc of air. 11:19:48 Insertion/operative site no bleeding no hematoma. 11:20:28 Post right radial artery:stable 11:21:13 Post Procedure Pulses reassessed and unchanged 11:21:18 Post procedure rhythm: unchanged. 11:21:55 Estimated blood loss: 10 ml 11:21:58 Post procedure instruction explained to patient.Patient verbalizes understanding. 11:21:59 Patient needs reinforcement of post procedure teaching. 11:22:40 Procedure type changed to Cath procedure, Diagnostic procedure, C, C w/Coronaries, FFR/IVUS, FFR Initial, FFR Additional, Sedation Charges, Moderate Sedation up to 15 minutes, PCI procedure, Coronary Stent, Coronary Stent Initial x2 11:24:29 Procedure and supply charges have been captured, reviewed, submitted an d are correct. 11:24:37 Procedure Complication : No complications 11:24:40 Vital chart was stopped 11:24:46 [facility] Findings: MVD- PCI performed (see procedure note) 11:24:53 Operative report dictated upon procedure completion. 11:24:53 See physician's report for complete and final results. 11:25:06 Report given to [facility]. 11:25:11 Patient transfered to [facility] with Bed. 11:25:15 Procedure ended. 11:25:15 Full Disclosure recording stopped 11:25:22 ACC-PCI Only Patient was given prescriptions, or instructed by Regan Santos MD to start/continue the following medications upon discharge: Plavix 11:25:24 End room use (Document Last) Intervention Summary Intervention Notes Time ActionType Lesion and Equipment Used Action# Pressure Duration Attributes 11:11:31 Place stent Undefined1 TIMMY RX 3.0 x 1 13 00:10 08 stent ([id number]) 11:14:46 Place stent Prox LAD TIMMY RX 3.5 x 1 15 00:10 08 stent ([id number]) Device Usage Item Name Manufacture Quantity Catalog Hospital Part Current Minimal Lot# / Number Charge Number Stock Stock Serial# Code ACIST Syringe Acist 1 43549 381513 091671 333183 20 (97989) Medical Systems Inc Medline Cath Medline 1 [id number] 168109 51424 318063 5 Pack ([id number]) Bag Decanter Microtek 1 2001S 622486 30872 120347 5 (2001S) Medical Inc. ACIST Hand Acist 1 97969 088967 245129 247462 5 Control Medical (63246) Systems Inc ACIST Manifold Acist 1 65785 356189 732112 765337 5 (33736) Medical Systems Inc Tegaderm 4 x 4 3M 1 1626W 083333 068098 055140 5 (1626W) MBrace Wrist Advanced 1 140-0250-00 461292 18631 277762 5 Support Vascular ([id number]) Dynamics EMERALD Guide Cardinal 1 502-455 775792 366506 076297 5 Wire (502-455) Health SHEATH 6FR Cardinal 1 8585137 443903 9279669 760068 5 RAIN (2883955) Health DIAGNOSTIC Terumo 1 40-7855 437475 732226 767894 5 Clyde 110cm 5 Fr catheter (594414) GUIDE 6FR EBU Medtronic 1 [id number] 255125 98943 154260 0 3.0 catheter (CF2ZTG32) Keno Keno 1 55113J 016818 865774725 693670 5 Verrata Plus pressure wire (67225N) INFLATOR Merit Merit 1 [id number] 296341 088016 319375 15 LiveProfile (KZ4510) TIMMY RX 3.0 x Medtronic 1 [id number] 400055 8828497 403555 5 [id number] 08 stent ([id number]) TIMMY RX 3.5 x Medtronic 1 [id number] 201498 1994845 755662 5 [id number] 08 stent ([id number]) ZEPHYR REGULAR Cardinal 1 174375 878577 0022050 711939 5 TR [facility] (905741) Signature Audit [place] Stage Time Signature Unsigned Intra-Procedure 06/21/2019 Jaylyn 11:25:55 AM Genesis RT(R) (CV) Intra-Procedure 06/21/2019 Kristy Pena RN 11:26:27 AM Intra-Procedure 06/21/2019 Regan Santos 11:26:53 AM [place] [id number] [place] [id number]
[2019-06-21 07:43] VITALS: BP 107/60
[2019-06-21 07:50] LABS: BASOPHILS 0.1 % (0-2); HEMATOCRIT 41.5 % (42.0-54.0); HEMOGLOBIN 14.6 g/dL (13.5-17.5); IMMATURE GRANULOCYTES 0.3 % (0-5); LYMPHOCYTES 21.1 % (15-50); MCH 31.3 pg (26.0-34.0); MCHC 35.2 g/dL (31.0-37.0); MCV 89.1 fL (80.0-100.0); MEAN PLATELET VOLUME 8.9 fL (7.4-10.4); MONOCYTES 8.7 % (2-11); NEUTROPHILS 66.8 % (40-80); PLATELET COUNT 276 10x3/uL (130-400); RBC 4.66 10x6/uL (4.20-6.10); RDW 14.1 % (11.5-14.5)
[2019-06-21 07:57] LABS: APTT 28.9 SECONDS (22.8-39.4); INR 1.09 (0.85-1.17); PROTIME 13.6 SECONDS (11.6-15.0)
[2019-06-21 08:03] LABS: ALBUMIN 3.9 g/dL (3.4-5.0); ALKALINE PHOSPHATASE 75 U/L (46-116); ALT (SGPT) 33 U/L (10-68); BILIRUBIN - TOTAL 1.14 mg/dL (0.2-1.3); CALC OSMOLALITY 280 mosm/kg (275-300); CALCIUM 8.9 mg/dL (8.5-10.1); CHLORIDE - SERUM 103 mmol/L (98-107); CREATININE - SERUM 1.5 mg/dL (0.6-1.3); GLUCOSE 103 mg/dL (74-106); POTASSIUM - SERUM 3.1 mmol/L (3.5-5.1); PROTEIN - SERUM 6.9 g/dL (6.4-8.2); SODIUM 141 mmol/L (136-145); UREA NITROGEN 12 mg/dL (7-18); eGFR NON AFRICAN AMERICAN 49 mL/min (90-120)
[2019-06-21 08:15] LABS: CKMB 0.8 U/L (0.0-3.6); CREATINE KINASE 41 UL (21-232); MAGNESIUM - SERUM 1.8 mg/dL (1.8-2.4); TROPONIN-I < 0.017 ng/mL (0.000-0.060)
--- NOTE | 2019-06-21 08:45 | NUR ---
NS STOPPED AT 0830 WHEN PT ADMITTED TO ROOM 2101
--- NOTE | 2019-06-21 08:53 | NUR ---
RECEIVED FROM ER VIA W/C. HE IS ALERT AND ORIENT ABLE TO VOICE NEEDS. ORIENT TO ROOM INCLUDING CALL LIGHT AND HOW TO USE IT. HIS IS IN THE ROOM. HE STATES HE IS HAVING CHEST PRESSURE BUT DOES NOT WANT ANY MORPHINE OR NTG FOR IT. O2 ON AT 2L/M PER N/C DUE TO CHEST PRESSURE. O2 SAT ON R/A IS 99%. RESP EVEN WITHOUT LABOR. SKIN W/D. NS AT 125CC/HR IN LEFT A/C SITE IS CLEAR. NOTIFIED POWERTRAIN ENGINEER OF NEEDING A HEART MONITOR BUT ONE IS NOT CURRENTLY AVAILIABLE. NPO AT THIS TIME UNTIL SEEN BY LEATHER GRAINER. BED IN LOWEST POSITION AND LOCKED. CAREPLAN INITIATED WITH SAFETY PRECAUTIONS IN PLACE.
[2019-06-21 09:25] VITALS: BP 125/70
[2019-06-21 09:36] LABS: CHOL - HDL RATIO 1.9 ratio (2.3-4.9); LDL-HDL RATIO 0.7 ratio (1.5-3.5)
[2019-06-21 11:16] VITALS: BP 125/70; Ht 177.8 cm; Wt 77.3 kg
--- NOTE | 2019-06-21 11:24 | HP ---
PATIENT: IGOR HERNANDEZ MEDICAL RECORD: [id number] ACCOUNT: [id number] LOCATION:[address] : 43 ADMISSION DATE: 06/21/19 PCP: KT WILKINSON DO HISTORY AND PHYSICAL EXAMINATION DIAGNOSES: 1. Unstable angina class IV. 2. Coronary artery disease. 3. Previous multivessel percutaneous transluminal coronary angioplasty stent. 4. Hypertension. 5. Hyperlipidemia. HISTORY OF PRESENT ILLNESS: Mr. Hernandez presents with 1-week of increasing episodes of chest discomfort. He is having chest pressure, band-like tightness around his chest, just like that of his previous angina. He is status post multivessel PTCA stent in the past. He is still having the episodes of chest pressure this morning. He is having rest pain at class IV. PHYSICAL EXAMINATION: CONSTITUTIONAL/GENERAL APPEARANCE: Well nourished, well developed, appears stated age. EYES: Lids and conjunctivae noninjected. No discharge. No pallor. ENT: Lips within normal limit. No cyanosis. No pallor. NECK: Carotid arteries, bilateral normal upstroke. No bruits. No thrills. No jugular venous pressure or distention. CERVICAL LYMPH NODES: Nontender. Nonenlarged. THYROID: Not enlarged. No nodules. CARDIOVASCULAR: Precordial exam, nondisplaced. No heaves or pericardial thrills. Rate and rhythm, regular. Heart sounds, normal S1, normal S2. No S3, no gallop, no rub. Systolic murmur, not heard. Diastolic murmur, not heard. RESPIRATORY: Respiratory effort, unlabored. Normal curvature. No thoracic deformity. No chest wall tenderness. Percussion, resonant. Auscultation, clear. No wheezes, no rales, no rhonchi. ABDOMEN: Soft, nondistended, nontender. No abdominal pain, no vomiting and normal appetite. MUSCULOSKELETAL: No joint tenderness, normal gait, normal tone. SKIN: Warm and dry. OVERALL IMPRESSION: Unstable angina class IV in a patient with a past history of multivessel percutaneous transluminal coronary angioplasty stent. We will proceed with coronary angiography. Further care depends upon the findings of the angiography. TRANSINT:[id number] Voice Confirmation ID: [id number] DOCUMENT ID: [id number] HISTORY AND PHYSICAL [id number] ADILIA HERNANDEZE SHAHNAZ GEORGE MD at 1124 CC: [id number] DICTATION DATE: 06/21/19917 SALES SUPPORT ADMINISTRATOR: 06/21/1954 ADM IN [facility] [address] [id number]
--- NOTE | 2019-06-21 11:55 | NUR ---
RETURNED FROM HEART CATH AT THIS TIME TR BAND ON RIGHT WRIST INTACT WITH NO HEMATOMA OR BLEEDING NOTED. HE AROUSES BUT IS SLEEPY. ALERT KNOWS HE IS IN THE HOSPITAL. VSS. HEART MONITOR APPLIED
--- NOTE | 2019-06-21 12:02 | NUR ---
UPON ADMISSION, CLAUDY HAS STATED TO RECEIVING A FLU SHOT.
--- NOTE | 2019-06-21 15:00 | NUR ---
ATTEMPTED TO TAKE OUT HALF OF TR BAND AIR OUT AND HE STARTED BLEEDING SO ADDED IT BACK AND WILL ATTEMPT IN A LITTLE WHILE TO SLOWLY TAKE AIR OUT.
--- NOTE | 2019-06-21 15:45 | NUR ---
SLOWLY TOOK 2CC OUT OF TR BAND NO BLEEDING NOTED. HE IS DROWSY BUT WILL AROUSE EASILY VSS
--- NOTE | 2019-06-21 16:00 | NUR ---
2 CC AIR REMOVED WITH NO BLEEDING NOTED.
--- NOTE | 2019-06-21 16:45 | NUR ---
2CC REMOVED FROM BAND NO BLEEDING AND NO HEMATOMA NOTED. HE HAS URINATED 250CC TAKING PO FLUIDS AND FOOD WELL
--- NOTE | 2019-06-21 17:15 | NUR ---
2 MORE CC OUT OF BAND MARIA DEL CARMEN WELL
--- NOTE | 2019-06-21 17:30 | NUR ---
LAST 2 CC OF AIR LET OUT OF BAND. NO BLEEDING OR HEMATOMA NOTED HE IS AWAKE AND ALERT
[2019-06-21 17:43] VITALS: BP 104/55
--- NOTE | 2019-06-21 18:00 | NUR ---
DISCHARGE PAPERS EXPLAINED IN DETAIL TO HIM AND . IV D/C WITH CATH TIP INTACT MINIMAL BLEEDING NOTED DRESSING APPLIED CONTINUES TO HAVE NO BLEEDING FROM SITE IN RIGHT WRIST. SPLINT LEFT IN PLACE TO REMIND HIM NOT TO MOVE OR USE HIS WRIST. THEY UNDERSTAND TO APPLY DIRECT PRESSURE IF BLEEDING OCCURS AT SITE AND IF HEAVY OR UNCONTROLLED TO RETURN TO ER OR CALL 911. HE HAS HAD MULTIPLE STENTS IN PAST.
--- NOTE | 2019-06-21 18:15 | NUR ---
LEFT PER W/C WITH STAFF ASSIST WITH NO C/O CHEST PAIN OR ISSUES NO BLEEDING OR HEMATOMA HE IS IN STABLE CONDITION TO PRIVATE AUTO
--- NOTE | 2019-06-22 06:51 | MORECARE ---
CASE MANAGEMENT DISCHARGE SUMMARY PATIENT: IGOR HERNANDEZ UNIT: [id number] ADM DATE: 06/21/19 AGE: 73 : [birth year] SEX: M ROOM/BED: D.2101 AUTHOR: VALDEZ GE PHYSICIAN: REFERRING PHYSICIAN: SHAHNAZ MOLINA MD DATE OF SERVICE: 06/22/19 Discharge Plan Patient Name: IGOR HERNANDEZ [facility] [facility] 1945 Planned Disposition: Home Anticipated Discharge Date: 06/21/19 Discharge Date: 06/21/2019 Expected LOS: 1 Initial Reviewer: [email or web address] Initial Review Date: 06/22/2019 Generated: 06/22/19 7:50 am Coverage Notice Reviewer: [email or web address] Hadley Rodrigues Notice Issued Date-Time: 06/21/2019 8:20 Notice Type: Medicare Outpatient Observation Notice Notice Delivered To: Patient Relationship to Patient: Central Service Supply Distributor Name: Delivery Method: HAND - Hand Delivered Joy Days: Prior Verbal Notification: Recipient Understood Notice: Recipient Signature: Med Rec Note Co-signed by Attending: Coverage Notice Comment: PETER delivered, explained, signed by the patient, and placed in his chart. Signed form also left with patient. Naya Rodrigues RN , [facility] Patient Name: IGOR HERNANDEZ Page [id number] at 0651 All edits/amendments must be made on the electronic document DICTATION DATE: 06/22/1950 HEALTHCARE RISK CONTROL CONSULTANT: GUERLINE 06/22/1951 RPT#: [id number] DC DATE:06/21/19 STATUS: DIS IN [facility] [address] [place] [address] END OF REPORT
--- NOTE | 2019-06-23 13:28 | OP ---
PATIENT NAME: IGOR HERNANDEZ MEDICAL RECORD: [id number] :43 LOCATION:D.OPS ADMISSION DATE: SURGEON: SAHHNAZ MOLINA MD DATE OF OPERATION: 06/21/2019 PROCEDURES: 1. PTCA stent LAD. 2. PTCA stent left circumflex, ramus intermedius. 3. IFR LAD. 4. IFR ramus intermedius. 5. Left heart catheterization. 6. Selective coronary angiography. 7. Left ventriculogram. INDICATION: Angina and coronary artery disease. DESCRIPTION OF PROCEDURE: After informed consent was obtained and after a detailed description of risks, benefits as well as alternative therapies, the patient elected to proceed with angiogram and angioplasty. The right radial area was prepped and draped in normal sterile fashion. Right radial artery was cannulated via modified Seldinger technique with placement of 6-Italian sheath. All catheters exchanged through this sheath. FINDINGS: The left ventriculogram was performed in standard 30-degree SKAGGS view, reveals good cardiac wall motion, ejection fraction 60%. SELECTIVE CORONARY ANGIOGRAPHY: 1. Left main has no significant angiographic disease. 2. Left anterior descending has 80% to 90% stenosis at the ostium and IFR was abnormal at 0.78. 3. The ramus intermedius has 80% to 90% stenosis at the ostium and IFR was abnormal at 0.89. 4. Left circumflex has previously placed stents, these are widely patent with no significant restenosis. No disease elsewise throughout the circumflex or its branches. 5. Right coronary artery has moderate irregularities, but no flow-limiting stenosis. PTCA STENT OF THE LAD AND RAMUS INTERMEDIUS: The ramus was addressed with a 3.0 x 8 mm Wyatt, the LAD with a 3.5 x 8 mm Wyatt. Result was 0% residual stenosis. OVERALL IMPRESSION: Successful percutaneous transluminal coronary angioplasty stent of left anterior descending and ramus intermedius going from 80% to 90% initial stenosis to 0% residual. TRANSINT:[id number] Voice Confirmation ID: [id number] DOCUMENT ID: [id number] OPERATIVE REPORT [id number] IGOR HERNANDEZ SHAHNAZ MOLINA MD at 1328 CC: [id number] DICTATION DATE: 06/21/19 1119 WINDOW GLAZIER HELPER: 06/21/19 1133 DEP CLI 06/21/19 [facility] [address] [place] [address]
--- NOTE | 2019-06-23 13:29 | DS ---
PATIENT:IGOR HERNANDEZ :43 MEDICAL RECORD: [id number] DISCHARGE SUMMARY ADMISSION DATE: 06/21/19 DISCHARGE DATE: 06/21/19 DIAGNOSES: 1. Unstable angina. 2. Coronary artery disease. 3. Hypertension. 4. Hyperlipidemia. HOSPITAL COURSE: Mr. Hernandez presented with unstable anginal symptomatology, found to have hemodynamically significant stenosis of the LAD and ramus intermedius. Underwent successful PTCA and stent of both territories. Discharged home with no change in his medical regimen since he was already on aspirin, Plavix, and a statin. He will follow up with [facility] in 1 month. TRANSINT:[id number] Voice Confirmation ID: [id number] DOCUMENT ID: [id number] SHAHNAZ MOLINA MD at 1329 CC: [id number] DICTATION DATE: 06/21/19 1121 SKIN FORMER: 06/22/19 0645 DEP CLI 06/21/19 [address] [address] [place] [address]
== END 2019-06-21 18:15 | disposition home or self-care (01) ==
LOC: OBSVTIME → D.OPS 07:18 → D.ER 07:18 → D.M2 07:46 → D.ER 07:46 → OBSVTIME 08:07 → D.ER 08:43 → EDSTATUS 13:27 → D.M2 18:15 → D.OPS 18:15 → D.M2 18:15
PROVIDERS: Family Medicine; ATTEND Internal Medicine Interventional Cardiology
DX: I25.110 Atherosclerotic heart disease of native coronary artery with unstable angina pectoris (principal); I10 Essential (primary) hypertension; E78.5 Hyperlipidemia, unspecified
CPT/HCPCS: 93458; 93571; 93572; C9600 ×2

== ENCOUNTER 2019-11-02 12:34 | Day surgery (SDC) | payer MEDICARE, BC ==
[2019-10-31 15:17] LABS: HEMATOCRIT 40.9 % (42.0-54.0); HEMOGLOBIN 14.4 g/dL (13.5-17.5); MCHC 35.2 g/dL (31.0-37.0); MEAN PLATELET VOLUME 8.6 fL (7.4-10.4); RBC 4.65 10x6/uL (4.20-6.10); RDW 12.9 % (11.5-14.5); WBC 7.1 10x3/uL (4.8-10.8)
[2019-11-02] VITALS (11 sets, daily range): BP systolic 92–140; BP diastolic 58–74; Ht 175.3 cm; Wt 88.6 kg
[~2019-11-02] VITALS: Ht 175.3 cm; Wt 88.6 kg
--- NOTE | ~2019-11-02 | OP ---
PATIENT NAME: IGOR HERNANDEZ MEDICAL RECORD: [id number] :43 LOCATION:D.OPS ADMISSION DATE: SURGEON: KELLY RAMSEY MD DATE OF OPERATION: 11/02/2019 DATE OF SERVICE: 11/02/2019 PREOPERATIVE DIAGNOSES: Osteophyte formation and disk herniation at C4-C5 and C5-C6, bilateral C5 and C6 radiculopathies. SURGEON: Kelly Ramsey MD PROCEDURE: Anterior cervical discectomy and fusion at C4-C5 and C5-C6 with PEEK interbody cages, Joanne bone allograft with stem cells, separate anterior cervical plate and screws at C4-C5 and C5-C6, removal of osteophytes with microscopic illumination. DESCRIPTION AND TECHNIQUE: After induction of general endotracheal anesthesia, the patient was positioned supine on the operating table. The neck was prepped and draped in the usual sterile fashion. Fluoroscopic x-ray and [place] dissector localized the C5 vertebral body. After infiltration with 1:100,000 epinephrine and 1% lidocaine, a transverse skin incision was carried out from the midline to the sternocleidomastoid muscle. The platysma was divided with a #15 blade. Using blunt and sharp dissection with Metzenbaum scissors, I proceeded in the avascular plane medial to the carotid sheath. The C4-C5 interspace was identified with fluoroscopic x-ray and a spinal needle. Longus colli muscles were elevated from bodies of C4, C5 and C6. Osteophytes were removed anteriorly with Adson rongeurs. A self-retaining retractor was placed deep to the longus colli muscles. Barrington distracting pins were placed by the C4, C5 and C6. Disk material was removed from C4-C5 and C5-C6 with pituitary rongeurs and curettes. Under microscopic illumination, osteophytes were drilled away posteriorly with Midas-Bob drill. The posterior longitudinal ligament was removed at C4-C5 and C5-C6. The dura was decompressed well. A PEEK interbody cage was placed at each interspace under distraction at C4-C5 and C5-C6. Prior to this, it was filled with Joanne bone allograft with bone stem cells. A separate [facility] anterior cervical plate and screws was used to span the C4-C5 and C5-C6 interspace. Following this, a good position of hardware was confirmed with fluoroscopic x-ray. Locking cams were tightened down over screw heads in the plate at the C4-C5 and C5-C6. Meticulous hemostasis was maintained throughout the wound. The wound was irrigated with copious amounts of Ancef irrigant solution. The platysma and subdermal layer closed with interrupted 4-0 Vicryl suture. The skin was reapproximated with Steri-Strips and benzoin. A sterile dressing was applied to the wound. The patient was awakened in good condition and taken to recovery. All counts were reported as correct. Estimated blood loss was minimal. TRANSINT:[id number] Voice Confirmation ID: [id number] DOCUMENT ID: [id number] OPERATIVE REPORT [id number] IGOR HERNANDEZ JOHN MD CC: [id number] DICTATION DATE: 11/21/19742 CORDUROY CUTTER OPERATOR: 11/21/19 08 [facility] 11/03/19 [facility] [address] [place] [address]
--- NOTE | 2019-11-02 12:25 | NUR ---
NO DIFFICULTY SWALLOWING ,EQUAL STRENGHTS ALL 4 EXTREMETIES
--- NOTE | 2019-11-02 14:19 | NUR ---
NO RELIEF FROM MORPHINE 4MG, NORCO 10 AND ROBACXIN 750MG GIVEN PER MAR ORDER
--- NOTE | 2019-11-02 15:00 | NUR ---
RESTING COMFORTABLY, SLEEPING WITH NO SIGNS OF DISTRESS, VSS, AROUSES TO VERBAL STIMULI, PAIN RATED 2/10, NO OTHER ACUTE CHANGE FROM PREVIOUS ASSESSMENT
[2019-11-02 19:56] LABS: ANION GAP 15.5 mmol/L (8-16); CALCIUM 8.6 mg/dL (8.5-10.1); CARBON DIOXIDE 24.7 mmol/L (21.0-32.0); POTASSIUM - SERUM 3.2 mmol/L (3.5-5.1)
--- NOTE | 2019-11-02 20:05 | NUR ---
PATIENT REPORT NECK PAIN 8 OF 10, GAVE NORCO 5/325 AND ROBAXIN 750 MG, WILL CONTINUE TO MONITOR.
--- NOTE | 2019-11-02 21:16 | NUR ---
CALLED DR RAMSEY AND RECIEVED TELEPHONE ORDERS FOR POTASIUM 80 Meq ONE TIME PO, PATIENT IS ALERT AND ORIENTED, PLEASANT , SIDE RAILS UP X 2, CALL LIGHT IN REACH, UNINE OUTPUT 100 ML IN URNIAL, IV ACCESS RIGHT FORE ARM, PATENT WITH DRESSING IN PLACE, PATIENT RESTING QUIETLY IN BED, WILL CONTINUE TO MONITOR.
--- NOTE | 2019-11-02 22:59 | NUR ---
PATIENT RESTING QUIETLY NO DISTRESS NOTED PATIENT DOES NOT VOICE ANY COMPLAINTS.
--- NOTE | 2019-11-03 00:39 | NUR ---
PATIENT RESTING QUIETLY IN BED PLAYING CARD GAME ON HIS iPAD.
[2019-11-03 01:57] VITALS: BP 122/64
--- NOTE | 2019-11-03 02:04 | NUR ---
PATIENT RESTING QUIETLY IN BED, NO DISTRESS NOTED OR VOICED BY PATIENT.
[2019-11-03 03:56] VITALS: BP 54/40
[2019-11-03 07:00] VITALS: BP 121/71
--- NOTE | 2019-11-03 07:00 | NUR ---
REC'D REPORT AND RESUMED CARE, AAO, VSS, DENIES PAIN, NECK INCISION CLEAN AND DRY, CALL LIGHT IN REACH. NO NEEDS AT THIS TIME
[2019-11-03 08:00] VITALS: BP 121/71
--- NOTE | 2019-11-03 08:00 | NUR ---
BREAKFAST TRAY TO BEDSIDE, INDEPENDENT WITH SET UP AND EATING
--- NOTE | 2019-11-03 09:00 | NUR ---
MORNING MEDS GIVEN PER MAR FLOW SHEET, OOB TO CHAIR WITH STANBY ASSIST, SOFT CERVICAL COLLAR PLACED
[2019-11-03] MEDS ORDERED: HYDROCODON-ACE1 EA10 PO (10:45)
--- NOTE | 2019-11-03 11:00 | NUR ---
RESTING SITTING UP IN CHAIR, WATCHING TV, NO NEEDS AT THIS TIME
--- NOTE | 2019-11-03 12:00 | NUR ---
AND DR RAMSEY AT BEDSIDE, NEW ORDER GIVEN TO DC HOME TODAY, WRITTEN SCRIPT GIVEN FOR PAIN MEDS
--- NOTE | 2019-11-03 12:45 | NUR ---
DC HOME VIA WHEELCHAIR WITH TO PERSONNEL VEHICLE, DISCHARGE INSTRUCTIONS AND EDUCATION GIVEN
== END 2019-11-03 12:40 | disposition home or self-care (01) ==
LOC: D.OPS 12:34 → D.ICU 12:35 → D.OPS 11-03 12:40
PROVIDERS: Anesthesiology; ATTEND Neurological Surgery
DX: M50.121 Cervical disc disorder at C4-C5 level with radiculopathy (principal); E78.2 Mixed hyperlipidemia; I10 Essential (primary) hypertension; K21.9 Gastro-esophageal reflux disease without esophagitis

== ENCOUNTER 2019-12-06 09:56 | Outpatient (CLI) | payer MEDICARE, BC ==
[~2019-12-06] VITALS: Ht 175.3 cm; Wt 90.0 kg
--- NOTE | ~2019-12-06 | HEMODYNAMI ---
PATIENT:IGOR HERNANDEZ MEDICAL RECORD: [id number] : 43 LOCATION:DBELTRAN ADMISSION DATE: 12/06/19 Generatedon:12/06/201912:30 Patient name: IGOR HERNANDEZ Patient #: [id number] : 1945 Date of study: 12/06/2019 Page: Of Hemodynamic Procedure Report Patient Data Patient Demographics Procedure consent was obtained First Name: IGOR Gender: Male Last Name: DAVID : 1945 [facility] Initial: OTILIA Age: 74 year(s) Patient #: [id number] Race: SSN: [id number] Additional ID: [id number] Contact details Address: [place] [address] State: [place] City: [place] Zip code: [address] Past Medical History Allergies Allergen Reaction Date Comments Reported Other allergy 07/10/2016 Tetanus Other allergy 01/14/2018 TETANUS VACCINES AND TOXOID Other allergy 11/18/2018 TETANUS AND TOXOID Other allergy 01/26/2019 Tetanus vaccines, toxoid Other allergy 06/21/2019 nkda Other allergy 12/06/2019 Admission Admission Data Admission Date: 12/06/2019 Admission Time: 9:56 Lab Results Lab Result Date: 12/06/2019 Lab Result Time: 0:00 Biochemistry Name Units Result Min Max BUN mg/dl 15 --(--*-)-- 7 18 Creatinine mg/dl 1.7 --(----)-* 0.6 1.3 eGFR ml/min 42 *-(----)-- 90 120 NONAFRICAN CBC Name Units Result Min Max Hematocrit % 40.2 -*(----)-- 42 54 Hemoglobin g/dl 13.8 --(*---)-- 13.5 17.5 Procedure Procedure Types Cath Procedure Diagnostic Procedure LHC LHC w/Coronaries Procedure Description Procedure Date Procedure Date: 12/06/2019 Procedure Start Time: 12:19 Procedure End Time: 12:27 Procedure Staff Name Function Regan Santos MD Performing Physician Marlen Castillo RT Monitor Damion Mena RT Scrub Martha Faulkner RN Nurse Procedure Data Cath Procedure Fluoroscopy Diagnostic fluoroscopy Total fluoroscopy Time: 1.3 time: 1.3 min min Diagnostic fluoroscopy Total fluoroscopy dose: 441 dose: 441 mGy mGy Contrast Material Contrast Material Type Amount (ml) Isovue 300 44 Entry Location Entry Primary Successful Side Size Upsize Upsize Entry Closure Dee ccessful Closure Location (Fr) 1 (Fr) 2 (Fr) Remarks Device Remarks Radial Right 6 Fr Mechanical artery Short Compression Estimated blood loss: 5 ml Diagnostic catheters Device Type Used For End Catheter Placement DIAGNOSTIC Osmond 110cm 5 Procedure Fr catheter ([id number]) Procedure Complications No complications Procedure Medications Medication Administration Route Dosage 0.9% NaCl I.V. 100 ml/hr Oxygen etCO2 Nasal cannula 2 l/min Lidocaine 2% added to field 20 Heparin Flush Bag added to field 2 bags (1000units/500ml NS) Radial Cocktail added to field 1 syringe (Verapamil 2mg/Nitro 400mcg/Heparin 1500units) Versed I.V. 2 mg Fentanyl I.V. 50 mcg Versed I.V. 1 mg Fentanyl I.V. 25 mcg Hemodynamics Rest HGB: 13.8 (g/dl) Heart Rate: 61 (bpm) Snapshots Pre Cath Intra NCS Post Cath Vital Signs Time Heart Resp SPO2 etCO2 NIBP (mmHg) Rhythm Pain Sedation Rate (ipm) (%) (mmHg) Status Level (bpm) 12:10:49 62 13 99 33.7 145/77(120) NSR 0 (11) 10(A) , No pain 12:15:11 57 13 96 41.2 130/65(96) NSR 0 (11) 10(A) , No pain 12:19:23 56 11 96 32.2 112/60(96) NSR 0 (11) 10(A) , No pain 12:23:31 63 16 98 21.7 83/53(63) NSR 0 (11) 10(A) , No pain Medications Time Medication Route Dose Verified Delivered Reason Notes E ffectiveness by by 12:09:41 0.9% NaCl I.V. 100 Regan Thomas used for ml/hr Danielle Faulkner information technology advisor 12:09:49 Oxygen etCO2 2 l/min Regan Martha used for Nasal Danielle Faulkner procedure cannula RN 12:09:53 Lidocaine 2% added 20ml Reganlisa Wingrey for local to vial Danielle Santos MD anesthetic field 12:09:58 Heparin Flush added 2 bags Reganlisa Wingrey used for Bag to Danielle Santos MD procedure (1000units/500ml field NS) 12:10:06 Radial Cocktail added 1 Reganlisa Spears used for (Verapamil to syringe Danielle Santos MD procedure 2mg/Nitro field 400mcg/Heparin 1500units) 12:18:39 Versed I.V. 2 mg Regan Martha for Danielle Faulkner sedation RN 12:18:49 Fentanyl I.V. 50 mcg Regan Martha for Danielle Faulkner sedation RN 12:22:39 Versed I.V. 1 mg Regan Martha for Danielle Faulkner sedation RN 12:22:45 Fentanyl I.V. 25 mcg Regan Martha for Danielle Faulkner sedation sheet mill supervisor Log Time Note 11:56:30 Informed consent obtained and on chart 11:57:01 Procedure Status Elective Heart Cath (OP). 11:57:02 Time tracking: Regular hours (M-F 7:00 - 5:00) 11:57:10 Plan of Care:Hemodynamics will remain stable., Cardiac rhythm will remain stable., Comfort level will be maintained., Respiratory function will remain adequate., Patient/ family verbilizes understanding of procedure., Procedure tolerated without complication., Recovers from procedure without complications.. 11:57:14 Damion MCKEON(R) sent for patient. Start room use. 12:01:32 Patient received from Pre/Post Procedure Room to CCL 1 Alert and oriented. Tansferred to table in Supine position. 12:01:33 Warm blankets applied, and cy hugger turned on for patient comfort. 12:01:33 Correct patient and procedure confirmed by team. 12:01:33 ECG and BP/O2 sat monitors applied to patient. 12:01:41 H&P Date Dictated: 12/04/2019 Within 30 days and on chart., H&P Addendum completed by physician on day of procedure. (MUST COMPLETE FOR ALL OUTPATIENTS). 12:01:50 Patient allergic to Other allergy 12:09:33 Vital chart was started 12:09:34 Baseline sample Acquired. 12:09:41 0.9% NaCl 100 ml/hr I.V. was administered by Martha Faulkner RN; used for procedure; Verbal order read back and verified. 12:09:49 Oxygen 2 l/min etCO2 Nasal cannula was administered by Martha Faulkner RN; used for procedure; Verbal order read back and verified. 12:09:53 Lidocaine 2% 20ml vial added to field was administered by Regan Santos MD; for local anesthetic; Verbal order read back and verified. 12:09:58 Heparin Flush Bag (1000units/500ml NS) 2 bags added to field was administered by Regan Santos MD; used for procedure; Verbal order read back and verified. 12:10:06 Radial Cocktail (Verapamil 2mg/Nitro 400mcg/Heparin 1500units) 1 syringe added to field was administered by Regan Santos MD; used for procedure; Verbal order read back and verified. 12:12:15 Rhythm: sinus bradycardia 12:12:16 Full Disclosure recording started 12:12:16 Pre-procedure instructions explained to patient. 12:12:18 Pre-op teaching completed and patient verbalized understanding. 12:12:20 Family unavailable. 12:12:21 Patient NPO since Midnight. 12:12:24 Is the patient allergic to Iodine/contrast media? No. 12:12:24 Is patient on blood thinner?Yes 12:12:27 ACC The patient was administered the following blood thiners within the last 24 hours: ACCPlavix 12:12:28 Patient diabetic? No. 12:12:33 Previous problem with sedation/anesthesia? No ? 12:12:34 Snore? Yes 12:12:35 Sleep apnea? No 12:12:36 Deviated septum? No 12:12:36 Opens mouth fully? Yes 12:12:37 Sticks out tongue? Yes 12:12:39 Airway obstruction? No ? 12:12:40 Dentures? No ? 12:12:42 Pre procedure: right dorsailis pedis pulse 1+ Palpable, but thready & weak; easily obliterated 12:12:52 Patient pain scale 0/10 MILD PRESSURE PT STATES. 12:13:16 IV patent on arrival in right antecubital with 0.9% NaCl at KVO. 12:15:32 Lab Result : BUN 15 mg/dl 12:15:32 Lab Result : eGFR NONAFRICAN 42 ml/min 12:15:32 Lab Result : Creatinine 1.7 mg/dl 12:15:32 Lab Result : Hemoglobin 13.8 g/dl 12:15:32 Lab Result : Hematocrit 40.2 % 12:15:35 Lab results completed and on chart. 12:15:41 Right Radial & Right Groin area was prepped with chlora-prep and draped in sterile fashion 12:15:42 Alarms reviewed by R. N. 12:15:43 Sharps counted by scrub and verified by R.N. 12:17:33 --------ALL STOP TIME OUT------ 12:17:33 Final Timeout: patient, procedure, and site verified with staff and physician. All members of the team are in agreement. 12:17:34 Right Radial & Right Groin site verified by team. 12:17:37 Fire Safety Assessment: A--An alcohol-based skin anteseptic being used preoperatively., C--Open oxygen or nitrous oxide is being used., D--An ESU, laser, or fiber-optic light is being used. 12:17:40 Physical assessment completed. ASA score P 2 - A patient with mild systemic disease as per Regan Santos MD. 12:17:43 3b) 30-44 Moderately reduced kidney function. 12:17:48 Maximum allowable contrast dose (3.7 X eGFR X 0.75)117 ml. 12:17:51 Sedation plan: IV Moderate Sedation Medication:Versed, Fentanyl 12:17:53 Use device set Radial Dx or PCI 12:17:54 ACIST Syringe (99886) opened to sterile field. 12:17:55 Medline Cath Pack ([id number]) opened to sterile field. 12:17:55 Bag Decanter () opened to sterile field. 12:17:55 ACIST Hand Control (02295) opened to sterile field. 12:17:56 ACIST Manifold (60864) opened to sterile field. 12:17:56 Tegaderm 4 x 4 (1626W) opened to sterile field. 12:17:57 MBrace Wrist Support (499480180) opened to sterile field. 12:17:58 EMERALD Guide Wire (432-726) opened to sterile field. 12:17:59 SHEATH 6FR RAIN (6847549) opened to sterile field. 12:18:29 Procedure started. 12:18:39 Versed 2 mg I.V. was administered by Martha Faulkner RN; for sedation; Verbal order read back and verified. 12:18:49 Fentanyl 50 mcg I.V. was administered by Martha Faulkner RN; for sedation; Verbal order read back and verified. 12:19:24 Local anesthetic to right radial artery with Lidocaine 2% by Regan Santos MD.INITIAL ACCESS ONLY 12:19:34 A 6 Fr Short sheath was inserted into the Right Radial artery 12:20:36 A DIAGNOSTIC Osmond 110cm 5 Fr catheter (456358) was advanced over the wire and used for Procedure. 12::28 LV gram done using SKAGGS 12::30 Injector settings: Ml/sec: 5, Volume: 15, 12:21:36 EF : 50 % 12::23 LCA angiography performed. 12::39 Versed 1 mg I.V. was administered by Martha Faulkner RN; for sedation; Verbal order read back and verified. 12::45 Fentanyl 25 mcg I.V. was administered by Martha Faulkner RN; for sedation; Verbal order read back and verified. 12::49 RCA angiography performed. 12::59 ACCDominant side:Co-Dominant 12:23:00 Catheter removed. 12:23:21 ZEPHYR REGULAR TR BAND (930424) opened to sterile field. 12::29 Sheath removed intact; hemostasis achieved with Mechanical Compression to the Right Radial artery. 12:23:37 Procedure ended.(Physican Out) 12::18 Fluoroscopy time 01.30 minutes. 12:24:21 Flurop Dose total: 441 12:24:21 Fluoroscopy dose: 441 mGy 12:24:26 Contrast amount:Isovue 300 44ml. 12:24:33 Dose Area Product 41285 mGy/cm. 12::34 Sharps counted by scrub and verified by R.N. 12:25:04 [place]land band inflated with 10cc of air. 12:25:06 Insertion/operative site no bleeding no hematoma. 12:25:09 Post-procedure physical assessment completed. ASA score P 2 - A patient with mild systemic disease as per Regan Santos MD. 12:25:12 Post procedure rhythm: sinus rhythm 12:25:13 Estimated blood loss: 5 ml 12:25:15 Post procedure instruction explained to patient.Patient verbalizes understanding. 12:25:15 Patient needs reinforcement of post procedure teaching. 12:26:46 Procedure and supply charges have been captured, reviewed, submitted and are correct. 12::49 Procedure Complication : No complications 12::51 Vital chart was stopped 12::52 [facility] Findings: mild to moderate CAD (<70%) 12:26:54 Operative report dictated upon procedure completion. 12::54 See physician's report for complete and final results. 12::56 Report given to Pre/Post Procedure Room. 12::59 Patient transfered to Pre/Post Procedure Room with Bed. 12:27:02 Procedure ended. 12:27:02 Full Disclosure recording stopped 12:27:06 End room use (Document Last) 12:29:35 End room use (Document Last) 12:30:02 End room use (Document Last) Device Usage Item Name Manufacture Quantity Catalog Hospital Part Current Minima l Lot# / Number Charge Number Stock Stock Serial# Code ACIST Acist 1 75575 [id number] [id number] 20 Syringe Medical (04744) Systems Inc Medline Medline 1 [id number] 930946 31261 549801 5 Cath Pack ([id number]) Bag Microtek 1 664395 81430 194623 5 Decanter Medical Inc. () ACIST Hand Acist 1 82600 554403 190230 777405 5 Control Medical (06040) Systems Inc ACIST Acist 1 16879 734796 804668 319139 5 Manifold Medical (61270) Systems Inc Tegaderm 4 3M 1 1626W 979015 137545 440882 5 x 4 (1626W) MBrace Advanced 1 140-0250-00 821410 26725 878862 5 Wrist Vascular Support Dynamics ([id number]) EMERALD Cardinal 1 502-455 782804 523160 981598 5 Guide Wire [facility] (258-121) SHEATH 6FR Cardinal 1 8098926 363847 1926731 167224 5 [facility] (7930914) DIAGNOSTIC Terumo 1 40-6280 371002 384072 954935 5 Osmond 110cm 5 Fr catheter (675694) ZEPHYR Cardinal 1 756181 440893 0006873 058062 5 REGULAR TR Health BAND (882118) Signature Audit [place] Stage Time Signature Unsigned Intra-Procedure 12/06/2019 Marlen Castillo 12:29:35 PM RT(R) Intra-Procedure 12/06/2019 Martha Faulkner 12:30:02 PM RN Intra-Procedure 12/06/2019 Regan Santos 12:30:41 PM [address] [place] [address]
--- NOTE | ~2019-12-06 | OP ---
PATIENT NAME: IGOR HERNANDEZ MEDICAL RECORD: [id number] :43 LOCATION:D.CAT ADMISSION DATE: SURGEON: SHAHNAZ MOLINA MD DATE OF OPERATION: 12/06/2019 DATE OF SERVICE: 12/06/2019 PROCEDURES: 1. Left heart catheterization. 2. Selective coronary angiography. 3. Left ventriculogram. INDICATION: Angina and coronary artery disease. PROCEDURE IN DETAIL: After informed consent was obtained and after a detailed description of risks, benefits as well as alternative therapies, the patient elected to proceed with angiogram and heart catheterization. The right radial area was prepped and draped in normal sterile fashion. Right radial artery was cannulated via modified Seldinger technique with placement of 5-Ecuadorean sheath. All catheters exchanged through this sheath. FINDINGS: Left ventriculogram was performed in standard 30-degree SKAGGS view, reveals good cardiac wall motion, ejection fraction estimated at 55%. SELECTIVE CORONARY ANGIOGRAPHY: 1. Left main has no significant angiographic disease. 2. Left anterior descending has previously placed stents, these are widely patent with no significant restenosis. No disease elsewise throughout the LAD or its branches. 3. The left circumflex has previously placed stents, these are widely patent with no significant restenosis. No disease elsewise throughout the circumflex or its branches. 4. The right coronary has previously placed stents, these are widely patent with no significant restenosis. No disease elsewise throughout the RCA or its branches. OVERALL IMPRESSION: Wide patency of all the previously placed stents, no new disease. Continue medical management of the coronary artery disease and cardiac risk factors. TRANSINT:[id number] Voice Confirmation ID: [id number] DOCUMENT ID: [id number] SHAHNAZ MOLINA MD CC: [id number] DICTATION DATE: 12/06/19 1227 HEALTH CARE LAW SPECIALIST: 12/06/19 1442 REG [facility] [address] [place] [address]
[~2019-12-06 09:56] MED LIST changes: +HYDROCODON-ACE1 EA10 PO
[2019-12-06] MEDS ORDERED: LISINOPRIL-HCT1 EAC4 PO (10:41)
[2019-12-06] MEDS ORDERED: CRESTOR40 MG PO (10:41)
[2019-12-06] MEDS ORDERED: VITAMIN B-12500 MCG PO (10:43)
[2019-12-06 11:06] LABS: BASOPHILS 0.1 % (0-2); EOSINOPHILS 3.1 % (0-7); HEMATOCRIT 40.2 % (42.0-54.0); HEMOGLOBIN 13.8 g/dL (13.5-17.5); IMMATURE GRANULOCYTES 0.1 % (0-5); LYMPHOCYTES 29.8 % (15-50); MCH 30.3 pg (26.0-34.0); MCHC 34.3 g/dL (31.0-37.0); MCV 88.4 fL (80.0-100.0); MEAN PLATELET VOLUME 8.3 fL (7.4-10.4); MONOCYTES 10.1 % (2-11); NEUTROPHILS 56.8 % (40-80); PLATELET COUNT 238 10x3/uL (130-400); RBC 4.55 10x6/uL (4.20-6.10); RDW 12.7 % (11.5-14.5); WBC 7.1 10x3/uL (4.8-10.8)
[2019-12-06 11:08] VITALS: BP 156/76; Ht 175.3 cm; Wt 90.0 kg
[2019-12-06 11:20] LABS: ANION GAP 10.4 mmol/L (8-16); CALCIUM 9.1 mg/dL (8.5-10.1); CARBON DIOXIDE 28.9 mmol/L (21.0-32.0); CHOL - HDL RATIO 1.8 ratio (2.3-4.9); CREATININE - SERUM 1.7 mg/dL (0.6-1.3); LDL-HDL RATIO 0.4 ratio (1.5-3.5); POTASSIUM - SERUM 3.3 mmol/L (3.5-5.1)
--- NOTE | 2019-12-06 12:35 | NUR ---
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 MONITORS ESTAB. VSS SEE MANAGER SHIPPING. ALARMS ON AND C/L IN REACH.
--- NOTE | 2019-12-06 12:50 | NUR ---
R WRIST SITE C/D/I, NO S/S BLEEDING OR HEMATOMA. VSS. PT RESTING QUIETLY.
[2019-12-06] MEDS ORDERED: RANEXA500 MG PO (12:53)
--- NOTE | 2019-12-06 13:20 | NUR ---
PT RESITNG QUIETLY, R WRIST SITE C/D/I, NO S/S BLEEDING OR HEMATOMA. VSS. C/L IN REACH.
--- NOTE | 2019-12-06 13:35 | NUR ---
2cc AIR REMOVED FROM Z BAND, NO S/S BLEEDING OR HEMATOMA. VSS. PT GIVEN COKE PER REQUEST. C/L IN REACH.
--- NOTE | 2019-12-06 13:50 | NUR ---
TOTAL 5 CC AIR FROM Z BAND, NO S/S BLEEDING OR HEMATOMA.
--- NOTE | 2019-12-06 14:05 | NUR ---
ALL AIR REMOVED FROM Z BAND. NO S/S BLEEDING OR HEMATOMA. PIV D/C'D INTACT, DSG APPLIED. VSS. C/L IN REACH.
--- NOTE | 2019-12-06 14:21 | NUR ---
R WRIST SITE C/D/I. PT ALLOWED UP TO GET DRESSED.
--- NOTE | 2019-12-06 14:27 | NUR ---
ALL DISCHARGE INSTRUCTIONS REVIEWED WITH PATIENT INCLUDING NEW PRESCRIPTIONS, RESTRICTIONS AND FOLLOW UP. PT D/C'D TO PRIVATE VEHICLE WITH - VERBALIZES UNDERSTANDING OF D/C INSTRUCIONS. PT HAS ALL BELONGINGS AND PAPERWORK.
== END 2019-12-06 14:30 | disposition home or self-care (01) ==
LOC: D.CATH 09:56
PROVIDERS: ATTEND Internal Medicine Interventional Cardiology
DX: I25.119 Atherosclerotic heart disease of native coronary artery with unspecified angina pectoris (principal); E78.5 Hyperlipidemia, unspecified; I10 Essential (primary) hypertension; K21.9 Gastro-esophageal reflux disease without esophagitis

== ENCOUNTER → 2020-04-22 08:05 | Outpatient (CLI) | payer MEDICARE, BC ==
[2019-12-06 11:08] VITALS: BMI 29.3
[~2020-04-22 08:05] MED LIST changes: +CRESTOR40 MG PO; +LISINOPRIL-HCT1 EAC4 PO; +RANEXA500 MG PO; +VITAMIN B-12500 MCG PO
== END | disposition home or self-care (01) ==
LOC: D.HCCARDIO 08:05
PROVIDERS: ATTEND Internal Medicine Cardiovascular Disease
DX: I25.10 Atherosclerotic heart disease of native coronary artery without angina pectoris (principal)

== ENCOUNTER 2020-05-06 11:49 | Day surgery (SDC) | payer MEDICARE, BC ==
[~2020-05-06] VITALS: Ht 175.3 cm; Wt 86.9 kg
--- NOTE | ~2020-05-06 | HEMODYNAMI ---
PATIENT:IGOR HERNANDEZ MEDICAL RECORD: [id number] : 43 LOCATION:[facility] ADMISSION DATE: 05/06/20 Generatedon:05/06/202015:25 Patient name: IGOR HERNANDEZ Patient #: [id number] : 1945 Date of study: 05/06/2020 Page: Of Hemodynamic Procedure Report Patient Data Patient Demographics Procedure consent was obtained First Name: IGOR Gender: Male Last Name: DAVID : 1945 [facility] Initial: OTILIA Age: 74 year(s) Patient #: [id number] Race: SSN: [id number] Additional ID: [id number] Contact details Address: [place] [address] State: [place] City: [place] Zip code: [address] Past Medical History Allergies Allergen Reaction Date Comments Reported Other allergy 07/10/2016 Tetanus Other allergy 01/14/2018 TETANUS VACCINES AND TOXOID Other allergy 11/18/2018 TETANUS AND TOXOID Other allergy 01/26/2019 Tetanus vaccines, toxoid Other allergy 06/21/2019 nkda Other allergy 12/06/2019 Admission Admission Data Admission Date: 05/06/2020 Admission Time: 11:49 Lab Results Lab Result Date: 05/06/2020 Lab Result Time: 0:00 Biochemistry Name Units Result Min Max BUN mg/dl 13 --(--*-)-- 7 18 Creatinine mg/dl 1.7 --(----)-* 0.6 1.3 eGFR ml/min 42 *-(----)-- 90 120 NONAFRICAN CBC Name Units Result Min Max Hemoglobin g/dl 13.1 -*(----)-- 13.5 17.5 Procedure Procedure Types Cath Procedure Diagnostic Procedure LHC LHC w/Coronaries Sedation Charges Moderate Sedation up to 15 minutes Procedure Description Procedure Date Procedure Date: 05/06/2020 Procedure Start Time: 15:10 Procedure End Time: 15:23 Procedure Staff Name Function Ed Graves MD Performing Physician Nunu Basilio RT Monitor Keke Polk RT Scrub Cliff Avilez RN Nurse Jaylyn Hutrado RT Monitor Procedure Data Cath Procedure Fluoroscopy Diagnostic fluoroscopy Total fluoroscopy Time: 3.1 time: 3.1 min min Diagnostic fluoroscopy Total fluoroscopy dose: 463 dose: 463 mGy mGy Contrast Material Contrast Material Type Amount (ml) Isovue 300 45 Entry Location Entry Primary Successful Side Size Upsize Upsize Entry Closure Dee ccessful Closure Location (Fr) 1 (Fr) 2 (Fr) Remarks Device Remarks Radial Right 6 Fr Mechanical artery Short Compression Estimated blood loss: 5 ml Diagnostic catheters Device Type Used For End Catheter Placement DIAGNOSTIC Bulmaro 110cm Procedure 5Fr catheter (003024) Procedure Complications No complications Procedure Medications Medication Administration Route Dosage Oxygen etCO2 Nasal cannula 2 l/min Heparin Flush Bag added to field 2 bags (1000units/500ml NS) 0.9% NaCl I.V. 100 ml/hr Radial Cocktail added to field 1 syringe (Verapamil 2mg/Nitro 400mcg/Heparin 1500units) Lidocaine 2% added to field 20 Fentanyl I.V. 50 mcg Versed I.V. 1 mg Fentanyl I.V. 50 mcg Versed I.V. 1 mg Radial Cocktail I.A. 1 syringe (Verapamil 2mg/Nitro 400mcg/Heparin 1500units) Fentanyl I.V. 25 mcg Hemodynamics Rest HGB: 13.1 (g/dl) Heart Rate: 0 (bpm) Pressure Samples Time Site Value (mmHg) Purpose Heart Use Rate(bpm) 15:14 LV 143/1,16 Snapshot 52 Gradients Valve Time Site Site Mean SEP/DFP Peak To Heart Use 1 2 (mmHg) (sec/min) Peak Rate (mmHg) (bpm) Aortic 15:15 LV AO 57 Snapshots Pre Cath Intra NCS Post Cath Vital Signs Time Heart Resp SPO2 etCO2 NIBP (mmHg) Rhythm Pain Sedation Rate (ipm) (%) (mmHg) Status Level (bpm) 14:56:57 55 16 95 0 183/93(132) NSR 0 (11) 10(A) , No pain 15:02:04 51 17 96 0 178/85(142) NSR 0 (11) 10(A) , No pain 15:07:03 56 16 97 29.8 178/94(159) NSR 0 (11) 10(A) , No pain 15:12:19 51 17 92 41 192/83(173) NSR 0 (11) 10(A) , No pain 15:17:40 61 16 94 26.1 134/79(110) NSR 0 (11) 9(A) , No pain 15:22:48 53 16 94 30.5 138/80(117) NSR 0 (11) 9(A) , No pain Medications Time Medication Route Dose Verified Delivered Reason Notes Effectiveness by by 15:08:56 Oxygen etCO2 2 l/min Ed Cliff Per Nasal Star Avilez RN physician cannula 15:09:03 Heparin Flush added 2 bags Ed Cliff used for Bag to Star Avilez RN procedure (1000units/500ml field NS) 15:09:11 0.9% NaCl I.V. 100 Ed Cliff Per ml/hr Star Avilez RN physician 15:09:43 Radial Cocktail added 1 Ed Cliff used for (Verapamil to syringe Star Avliez radiological technician 2mg/Nitro field 400mcg/Heparin 1500units) 15:09:51 Lidocaine 2% added 20ml Ed Cliff for local to vial Star Avilez RN anesthetic field 15:09:58 Fentanyl I.V. 50 mcg Ed Cliff for sedation Star Avilez RN 15:10:04 Versed I.V. 1 mg Ed Cliff for sedation Star Avilez RN 15:12:31 Fentanyl I.V. 50 mcg Ed Cliff for sedation Star Avilez RN 15:12:35 Versed I.V. 1 mg Ed Cliff for sedation Star Avilez RN 15:12:46 Radial Cocktail I.A. 1 Ed Ed for (Verapamil syringe Star coelho 2mg/Nitro 400mcg/Heparin 1500units) 15:15:17 Fentanyl I.V. 25 mcg Ed Cliff for sedation Star Avilez plastic eye technician Log Time Note 14:32:36 Keke Polk RT(R) sent for patient. Start room use. 14:40:13 Diagnostic Cath Status : Elective 14:42:25 Lab Result : Hemoglobin 13.1 g/dl 14:42:25 Lab Result : eGFR NONAFRICAN 42 ml/min 14:42:25 Lab Result : BUN 13 mg/dl 14:42: Lab Result : Creatinine 1.7 mg/dl 14:42:33 Procedure Status Elective Heart Cath (OP). 14:42:42 Time tracking: Regular hours (M-F 7:00 - 5:00) 14:42:46 Plan of Care:Hemodynamics will remain stable., Cardiac rhythm will remain stable., Comfort level will be maintained., Respiratory function will remain adequate., Patient/ family verbilizes understanding of procedure., Procedure tolerated without complication., Recovers from procedure without complications.. 14:42:56 Patient received from Pre/Post Procedure Room to CCL 2 Alert and oriented. Tansferred to table in Supine position. 14:42:58 Signed procedure consent form obtained from patient. 14:42:59 Warm blankets applied, and cy hugger turned on for patient comfort. 14:43:00 Correct patient and procedure confirmed by team. 14:55:54 ECG and BP/O2 sat monitors applied to patient. 14:55:55 Vital chart was started 14:55:56 Baseline sample Acquired. 14:56:01 Rhythm: sinus rhythm 14:56:02 Full Disclosure recording started 14:56:06 H&P Date Dictated: 05/06/2020 Within 30 days and on chart., H&P Addendum completed by physician on day of procedure. (MUST COMPLETE FOR ALL OUTPATIENTS). 14:56:08 Pre-procedure instructions explained to patient. 14:56:08 Pre-op teaching completed and patient verbalized understanding. 14:56:09 Family in patients room. 14:56:11 Patient NPO since Midnight. 14:56:16 Is the patient allergic to Iodine/contrast media? No. 14:56:16 Was the patient premedicated? Yes 14:56:51 Is patient on blood thinner?Yes 14:56:54 Patient diabetic? No. 14:56:56 Previous problem with sedation/anesthesia? No ? 14:56:58 Snore? Yes 14:56:59 Sleep apnea? No 14:57:00 Deviated septum? No 14:57:00 Opens mouth fully? Yes 14:57:01 Sticks out tongue? Yes 14:57:03 Airway obstruction? No ? 14:57:06 Dentures? No ? 14:57:09 Pre procedure: right dorsailis pedis pulse 2+ Normal; easily identifiable; not easily obliterated 14:57:12 Pre procedure: left dorsailis pedis pulse 2+ Normal; easily identifiable; not easily obliterated 14:57:15 Patient pain scale 0/10 ?. 14:57:21 IV patent on arrival in left forearm with 0.9% NaCl at O. 14:57:24 Lab results completed and on chart. 14:57:31 Right Radial & Right Groin area was prepped with chlora-prep and draped in sterile fashion 14:57:33 Alarms reviewed by R. N. 14:57:33 Sharps counted by scrub and verified by R.N. 14:58:15 ACC The patient was administered the following blood thiners within the last 24 hours: ACCPlavix 14:58:30 3a) 45-59 Moderately reduced kidney function. 14:58:34 Maximum allowable contrast dose (3.7 X eGFR X 0.75)116 ml. 15:06:34 Stress Test: yes; abnormal inferior 15:06:37 Physician arrived 15:06:41 --------ALL STOP TIME OUT------ 15:06:42 Final Timeout: patient, procedure, and site verified with staff and physician. All members of the team are in agreement. 15:06:50 Right Radial & Right Groin site verified by team. 15:06:56 Fire Safety Assessment: A--An alcohol-based skin anteseptic being used preoperatively., C--Open oxygen or nitrous oxide is being used., D--An ESU, laser, or fiber-optic light is being used. 15:07:03 Physical assessment completed. ASA score P 2 - A patient with mild systemic disease as per Ed Graves MD. 15:07:12 Sedation plan: IV Moderate Sedation Medication:Versed, Fentanyl 15:07:20 Use device set Radial Dx or PCI 15:07:22 ACIST Syringe (49109) opened to sterile field. 15:07:23 Medline Cath Pack ([id number]) opened to sterile field. 15:07:24 Bag Decanter () opened to sterile field. 15:07:25 ACIST Hand Control (33742) opened to sterile field. 15:07:26 ACIST Manifold (07840) opened to sterile field. 15:07:28 MBrace Wrist Support ([id number]) opened to sterile field. 15:07:29 NEEDLE Cook 21G 4cm Radial (E65887) opened to sterile field. 15:07:32 EMERALD Guide Wire (960-949) opened to sterile field. 15:07:33 SHEATH 6FR RAIN (2891277) opened to sterile field. 15:08:56 Oxygen 2 l/min etCO2 Nasal cannula was administered by Cliff Avilez RN; Per physician; Verbal order read back and verified. 15:09:03 Heparin Flush Bag (1000units/500ml NS) 2 bags added to field was administered by Cliff Avilez RN; used for procedure; Verbal order read back and verified. 15:09:11 0.9% NaCl 100 ml/hr I.V. was administered by Cliff Avilez RN; Per physician; Verbal order read back and verified. 15:09:21 Procedure started. 15:09:43 Radial Cocktail (Verapamil 2mg/Nitro 400mcg/Heparin 1500units) 1 syringe added to field was administered by Cliff Avilez RN; used for procedure; Verbal order read back and verified. 15:09:51 Lidocaine 2% 20ml vial added to field was administered by Cliff Avilez RN; for local anesthetic; Verbal order read back and verified. 15:09:58 Fentanyl 50 mcg I.V. was administered by Cliff Avilez RN; for sedation; Verbal order read back and verified. 15:10:04 Versed 1 mg I.V. was administered by Cliff Avilez RN; for sedation; Verbal order read back and verified. 15:10:11 Local anesthetic to right radial artery with Lidocaine 2% by Ed Graves MD.INITIAL ACCESS ONLY 15:12:21 A 6 Fr Short sheath was inserted into the Right Radial artery 15:12:31 Fentanyl 50 mcg I.V. was administered by Cliff Avilez RN; for sedation; Verbal order read back and verified. 15:12:34 A DIAGNOSTIC Bulmaro 110cm 5Fr catheter ([id number]) was advanced over the wire and used for Procedure. 15:12:35 Versed 1 mg I.V. was administered by Cliff Avilez RN; for sedation; Verbal order read back and verified. 15:12:41 Zero performed for pressure channel P1 15:12:46 Radial Cocktail (Verapamil 2mg/Nitro 400mcg/Heparin 1500units) 1 syringe I.A. was administered by Ed Graves MD; for vasodilation; Verbal order read back and verified. 15:12:53 Zero performed for pressure channel P1 15:13:03 Zero performed for pressure channel P1 15:13:13 Zero performed for pressure channel P1 15:13:49 Injector settings: Ml/sec: 5, Volume: 15, 15:14:33 LV gram done using SKAGGS 15:15:06 EF : 40 % 15:15:08 LV hemodynamics recorded. 15:15:17 Fentanyl 25 mcg I.V. was administered by Cliff Avilez RN; for sedation; Verbal order read back and verified. 15:16:01 RCA angiography performed. 15:16:14 Injector settings: Ml/sec: 3, Volume: 6, 15:17:18 LCA angiography performed. 15:17:41 Injector settings: Ml/sec: 3, Volume: 6, 15:18:24 Catheter removed. 15:18:31 ZEPHYR REGULAR TR BAND (282609) opened to sterile field. 15:19:11 Sheath removed intact; hemostasis achieved with Mechanical Compression to the Right Radial artery. 15:19:15 Procedure ended.(Physican Out) 15:19:29 Contrast amount:Isovue 300 45ml. 15:19:33 Maximum allowable dose exceeded? No. 15:19:43 Fluoroscopy time 03.10 minutes. 15:19:51 Flurop Dose total: 463 15:19:51 Fluoroscopy dose: 463 mGy 15:20:17 Dose Area Product 78555 mGy/cm. 15:20:20 Sharps counted by scrub and verified by R.N. 15:20:24 [place] band inflated with 10cc of air. 15:20:35 Post right radial artery:stable 15:20:40 Post-procedure physical assessment completed. ASA score P 2 - A patient with mild systemic disease as per Ed Graves MD. 15:20:44 Post procedure rhythm: unchanged. 15:20:49 Estimated blood loss: 5 ml 15:20:51 Post procedure instruction explained to patient.Patient verbalizes understanding. 15:20:52 Patient needs reinforcement of post procedure teaching. 15:21:20 Procedure type changed to Cath procedure, Diagnostic procedure, LHC, LHC w/Coronaries, Sedation Charges, Moderate Sedation up to 15 minutes 15:21:23 Procedure and supply charges have been captured, reviewed, submitted and are correct. 15:22:18 Procedure Complication : No complications 15:22:23 Vital chart was stopped 15:22:26 [facility] Findings: mild to moderate CAD (<70%) 15:22:32 Operative report dictated upon procedure completion. 15:22:32 See physician's report for complete and final results. 15:22:35 Report given to Pre/Post Procedure Room. 15:22:40 Patient transfered to Pre/Post Procedure Room with Stretcher. 15:23:14 Procedure ended. 15:23:14 Full Disclosure recording stopped 15:23:31 End room use (Document Last) Device Usage Item Name Manufacture Quantity Catalog Hospital Part Current Minima l Lot# / Number Charge Number Stock Stock Serial# Code ACIST Acist 1 76620 208269 [id number] 20 Syringe Medical (94087) Systems Inc Medline Medline 1 [id number] [id number] 32814 025162 5 Cath Pack ([id number]) Bag Microtek 1 594998 25694 298007 5 Decanter Medical Inc. () ACIST Hand Acist 1 21990 304406 966561 307784 5 Control Medical (02536) Systems Inc ACIST Acist 1 75795 768571 048406 496248 5 Manifold Medical (21374) Systems Inc MBrace Advanced 1 [id number] 692025 94196 614916 5 Wrist Vascular Support Dynamics ([id number]) NEEDLE Cook Cook Medical 1 [id number] 681323 624052 468010 5 21G 4cm Radial (L01841) EMERALD Cardinal 1 502-455 831995 321114 674144 5 Guide Wire Health (502455) SHEATH 6FR Cardinal 1 1938158 186697 4243279 635165 5 [facility] (1158525) DIAGNOSTIC Terumo 1 405023 766926 468092 044242 5 Bulmaro 110cm 5Fr catheter (729756) ZEPHYR Cardinal 1 146398 415733 4361677 493431 5 REGULAR TR Health BAND (810435) Signature Audit [place] Stage Time Signature Unsigned Intra-Procedure 05/06/2020 Jaylyn 3:24:01 PM Genesis RT(R) (CV) Intra-Procedure 05/06/2020 Cliff Avilez 3:24:39 PM RN Intra-Procedure 05/06/2020 Ed Graves MD 3:25:09 PM Signatures Performing Physician : Signature : Ed Graves MD Date : Time : Monitor : Nunu Young Signature : RT Date : Time : Nurse : Cliff Avilez RN Signature : Date : Time : Monitor : Jaylyn Signature : Nannemann RT Date : Time : [address] [place] [address]
[2020-05-06 12:19] VITALS: BP 143/80; Ht 175.3 cm; Wt 86.9 kg
[2020-05-06 12:31] LABS: BASOPHILS 0.3 % (0-2); EOSINOPHILS 3.8 % (0-7); HEMATOCRIT 38.2 % (42.0-54.0); HEMOGLOBIN 13.1 g/dL (13.5-17.5); IMMATURE GRANULOCYTES 0.1 % (0-5); LYMPHOCYTES 21.7 % (15-50); MCH 30.3 pg (26.0-34.0); MCHC 34.3 g/dL (31.0-37.0); MCV 88.4 fL (80.0-100.0); MEAN PLATELET VOLUME 9.5 fL (7.4-10.4); NEUTROPHILS 67.1 % (40-80); PLATELET COUNT 215 10x3/uL (130-400); RBC 4.32 10x6/uL (4.20-6.10); RDW 13.5 % (11.5-14.5); WBC 7.7 10x3/uL (4.8-10.8)
[2020-05-06 12:47] LABS: ANION GAP 6.6 mmol/L (8-16); CALCIUM 8.7 mg/dL (8.5-10.1); CARBON DIOXIDE 31.4 mmol/L (21.0-32.0); CHOL - HDL RATIO 1.7 ratio (2.3-4.9); CREATININE - SERUM 1.7 mg/dL (0.6-1.3); LDL-HDL RATIO 0.4 ratio (1.5-3.5)
--- NOTE | 2020-05-06 15:30 | NUR ---
PT ARRIVED BY STRETCHER. PLACED ON MONITORS. ASSESSMENT COMPLETED. VSS AT THIS TIME. CALL LIGHT WITHIN REACH. FAMILY AT BEDSIDE. DR. DODSON UPDATED PT'S FAMILY AT BEDSIDE.
--- NOTE | 2020-05-06 15:45 | NUR ---
RIGHT WRIST Z BAND IN PLACE. NO BLEEDING/HEMATOMA NOTED. CALL LIGHT WITHIN REACH. VSS AT THIS TIME. FAMILY AT BEDSIDE.
--- NOTE | 2020-05-06 16:15 | NUR ---
RIGHT WRIST Z BAND IN PLACE. NO BLEEDING/HEMATOMA NOTED. CALL LIGHT WITHIN REACH. VSS AT THIS TIME. FAMILY AT BEDSIDE. DENIES NAUSEA/PAIN.
--- NOTE | 2020-05-06 16:30 | NUR ---
2cc OF AIR REMOVED FROM Z BAND. NO BLEEDING/HEMATOMA NOTED. CALL LIGHT WITHIN REACH. VSS. FAMILY AT BEDSIDE. PT RESTING COMFORTABLY.
--- NOTE | 2020-05-06 16:45 | NUR ---
3cc OF AIR REMOVED FROM Z BAND. NO BLEEDING/HEMATOMA NOTED. CALL LIGHT WITHIN REACH. VSS AT THIS TIME. PT MORE AWAKE AND ALERT. PT ON ROOM AIR AND O2 SAT 94%. FAMILY AT BEDSIDE. PT SET UP WITH SANDWICH TRAY AND DRINK.
--- NOTE | 2020-05-06 17:00 | NUR ---
5cc OF AIR REMOVED FROM Z BAND. NO BLEEDING/HEMATOMA NOTED. TOLERATED WELL. RESTING COMFORTABLY.
--- NOTE | 2020-05-06 17:15 | NUR ---
RIGHT WRIST Z BAND REMOVED AND DRESSING APPLIED. PT TOLERATED WELL.
--- NOTE | 2020-05-06 17:25 | NUR ---
PIV D/C'D WITH CATH TIP INTACT. TOLERATED WELL. RIGHT WRIST DRESSING C/D/I. NO S/S OF HEMATOMA NOTED. DISCUSSED DISCHARGE INSTRUCTIONS WITH PT AND PT'S FAMILY. THEY VOICED UNDERSTANDING. PT INSTRUCTED TO GET UP AND DRESSED AT THIS TIME.
--- NOTE | 2020-05-06 17:30 | NUR ---
PT TAKEN OUT TO VEHICLE. REFUSED WHEELCHAIR. AMBULATED TO TRUCK WITH NURSE. PT HAS NO S/S OF DISTRESS NOTED. ALL BELONGINGS AND PAPERWORK IN HAND.
== END 2020-05-06 17:30 | disposition home or self-care (01) ==
LOC: D.CATH 11:49
PROVIDERS: ATTEND Internal Medicine Cardiovascular Disease
DX: I25.119 Atherosclerotic heart disease of native coronary artery with unspecified angina pectoris (principal); R94.39 Abnormal result of other cardiovascular function study; I05.9 Rheumatic mitral valve disease, unspecified; E78.5 Hyperlipidemia, unspecified; I10 Essential (primary) hypertension; R06.00 Dyspnea, unspecified; R07.89 Other chest pain

== ENCOUNTER → 2021-01-24 11:06 | Outpatient (CLI) | payer MEDICARE, BC ==
[2020-05-06 12:19] VITALS: BMI 28.3
== END | disposition home or self-care (01) ==
LOC: D.HCCECHO 11:06
PROVIDERS: ATTEND Internal Medicine Cardiovascular Disease
DX: I25.10 Atherosclerotic heart disease of native coronary artery without angina pectoris (principal)